=== PATIENT | male | born 1955 | race Caucasian/White ===

== ENCOUNTER 2024-09-16 23:51 | Inpatient (IN) | payer OTHER, SELFPAY ==
[2024-09-16] VITALS (10 sets, daily range): BP systolic 93–171; BP diastolic 65–92
[2024-09-16 18:49] LABS: INR 2.01; PT 22.9 Sec (11.4-14.6)
[2024-09-16 19:00] LABS: Hematocrit 25.1 % (39.0-52.0); Hemoglobin 6.5 g/dL (13.0-18.0); Mean Corp Hgb Conc. 25.9 g/dL (33.0-37.0); Mean Corpuscular Volume 70.1 fL (80.0-94.0); Platelet Count 309 10^3/uL (130-400); Red Cell Dist. Width 23.0 % (11.5-14.5)
[2024-09-16 19:01] LABS: ALT (SGPT) 13 U/L (0-50); AST (SGOT) 20 U/L (17-59); Albumin 4.4 g/dl (3.5-5.0); Alkaline Phosphatase 67 U/L (38-126); Blood Urea Nitrogen 17 mg/dl (9-20); Calcium 9.2 mg/dl (8.4-10.2); Carbon Dioxide 22 mmol/L (22-30); Chloride 108 mmol/L (98-107); Glucose 100 mg/dl (70-99); Potassium 4.7 mmol/L (3.5-5.1); Sodium 137 mmol/L (135-145); Total Protein 8.4 g/dl (6.3-8.2); eGFR > 60.00
[2024-09-16 19:19] LABS: Anisocytosis 2+; Hypochromasia 2+; Macrocytosis 2+; Normal RBC Morphology No; Nucleated Red Blood Cells % 0 % (-); Polychromasia Occasional
[2024-09-16 19:20] LABS: Ovalocytes Occasional; Stomatocytes Occasional; Target Cells Occasional; Tear Drop Red Blood Cells Occasional
--- NOTE | 2024-09-16 19:59 | ED.GENMED ---
History of Present Illness
General
Chief Complaint: Swelling
Source: patient
Exam Limitations: none
Time Seen by Provider: 09/16/24 19:36
History of Present Illness
History of Present Illness:
69yoM with a history of prior stroke with R sided hemiparesis, atrial fibrillation on Coumadin, CHF, prior DVT requiring surgery with IVC filter in place, Parkinson's disease, hypertension, hyperlipidemia, and cerebral palsy presenting for
evaluation of right thigh pain. Patient has been having pain in the back of his right thigh for the past several weeks. He is worried that he may a blood clot. He also thinks it may be a bug bite. He has also been experiencing exertional dyspnea
for a few months as well as fatigue. He states he can fall asleep 'at the drop of a hat.' He reports chest pain intermittently and lightheadedness if he bends over. No syncopal episodes. Triage lab work shows severe anemia. He denies any
hematochezia or melena.
Past History
Past History
ED Past Medical History: Arrthythmia (Atrial fib), CHF, CVA (paranasal stroke, right parietal ischemic stroke 2014, weakness right and left side), HTN, Hypercholesterolemia, Seizures and Other (parkinsons, Ulcerative Colitis, H-pylory, Hiatel
hernia, Abd hernias, DVT, GI bleeding,Headaches)
ED Past Surgical History: Other (IVC filter, Foot surgery)
Patient has exhibited threatening behavior?: No
PSI?: No
Social History
Tobacco: Former smoker
Alcohol: None
Drug: None
Personal: Single
Living: with family
Family History
Family History: Other (reviewed and noncontributory)
Phy Exam
Physical Exam
Physical Exam:
Chronically ill-appearing, no acute distress
General Physical Exam
General Presentation: no apparent distress
General Skin: warm, dry and pale
General Habitus: normal
General Mental: alert
ENT Exam
ENT Exam: normocephalic
Cardiovascular Exam
Cardiovascular Exam: regular rate/rhythm
Pulmonary Exam
Pulmonary Exam: lungs clear, no respiratory distress, no rales, no crackles and no rhonchi
Gastrointestinal Exam
Rectal Exam: other (Stool brown and Hemoccult testing negative)
Neurological Exam
Neurological Exam: alert
Anusha Coma Scale
Eye Opening: Spontaneous
Verbal Response: Oriented
Motor Response: Obeys Commands
GCS Total Score: 15
Musculoskeletal Exam
Musculoskeletal Exam: other (R posterior upper leg with erythema, warmth, and swelling. No open wounds.)
Psychiatric Exam
Psychiatric Exam: normal mood/affect
Scores
Heart Failure Risk
Heart Failure Risk Score: Not Applicable
Course
Orders/Labs/Results
Orders:
Orders
09/16/24 18:13
US Periph Venous LOWER Ext Jacques Urgent
Comment:
Reason For Exam: B/L LE swelling, R>L
09/16/24 18:33
Complete Blood Count/With Diff Urgent
Comprehensive Metabolic Panel Urgent
Iron Urgent
Comment: ADD ON
PT/INR [Prothrombin Time] Urgent
09/16/24 19:56
Blood Bank Products [* Blood Bank Products] Urgent
Blood Bank Products: *Packed RBC Leuko(PRBC's)
Quantity: 1
Transfuse Today: Yes
Reason: Anemia
Electrocardiogram (*1) Urgent
Reason for Study: Shortness of Breath
Cardiac Monitoring- Treatment ONCE
EKG- Treatment ONCE
CR Chest - 2 Views Urgent
Comment:
Reason For Exam: SOB
09/16/24 20:03
Add On- LAB Urgent
Tests Added?: iron panel
09/16/24 21:01
Type+Screen Urgent
09/16/24 21:02
NT-proBNP Urgent
Troponin I Urgent
09/16/24 23:00
Admit/Transfer Patient As Directed
Co-Sign Provider:
Level of Care: Inpatient admission
Assign to:: Telemetry
Physician / Group: Angel Luis Graves
Diagnosis: symptomatic anemia
Reason for Telemetry: Arrhythmia
Date to Stop Telemetry: 09/19/24
Time to Stop Telemetry: 11:00
Reason for Hospitalization: symptomatic anemia
Expected length of stay greater than two midnights?: Yes
ELOS- Estimated Length of Stay in days: 3
I certify the patient meets the requirements for IP care: Yes
PRN Pain Medication Management As Directed
May give lesser potent ordered pain med per pt: Yes
preference::
Protocol:: Medication orders for pain may be administered in a
manner that supports deferring to patient preference
when the pt is:
- Requesting an ordered lesser potent pain medication.
Least to most potent pain medications are defined
as: acetaminophen < NSAID < tramadol < opioids
(morphine, oxycodone, hydromorphone).
- Requesting a lesser dose of the same medication IF
ORDERED.
- Requesting a less intrusive route of administration
if both routes are prescribed by the provider (PO <
IV).
09/16/24 23:01
Code Status As Directed
Resuscitation Status: Full Code
09/16/24 23:14
Furosemide [Lasix] 40 mg IV NOW STA
09/16/24 23:35
CeFAZolin 1 GRAM [Ancef] 1 gram in 5 ml IV NOW
09/17/24 01:46
CeFAZolin 1 GRAM [Ancef] 1 gram in 5 ml IV Q8H
09/17/24 01:46
Consult Notification Routine
Specialty to Notify: Gastroenterology
GASTROINTESTINAL CONSULT Routine
Consulting Provider: Сергей Gordillo
Was physician already notified: No
Reason for consult: symptomatic anemia
Activity As Directed
Activity Level: As Tolerated
Intake/ Output As Directed
Frequency: Per unit guidelines
Patient Education As Directed
Type: CHF folder
Comment: give on admission. Document in Interdisciplinary Education record
Pneumatic Compression Sleeves As Directed
Type: Knee high
Sleep Apnea Assessment by RN As Directed
Comment:
Physician Instructions:
Vital Signs As Directed
Frequency: Per unit guidelines
Weight As Directed
Frequency: Daily
Type of Scale: Standing Scale
Comment: Daily morning weight. If unable to stand, use balanced bed scale.
Weight As Directed
Frequency: Once
Type of Scale: Standing Scale
Comment: Upon Admission. If unable to stand, use balanced bed scale.
Pulse Ox/cont/shift [RESP] Routine
Quantity: 1
Special Instructions: Daily pulse oximetry at rest. If greater than 92% at rest also obtain pulse oximetry
while ambulating as tolerated.
DX Deep Vein Thrombosis Video Routine
09/17/24 06:00
Echo 2D MMode Color/Doppler IN AM
Reason for Study: heart failure
NPO
Allow oral meds: Yes
Allow clear liquids: No
Basic Metabolic Panel IN AM
Complete Blood Count/No Diff IN AM
Ferritin IN AM
Folate IN AM
Total Iron Binding IN AM
Vitamin B12 IN AM
09/17/24 08:00
Furosemide [Lasix] 40 mg IV DAILY
09/17/24 Dinner
Clear Liquid
At Your Request: Full Participation
09/19/24 11:00
DC Protocol for Telemetry ONCE
Abnormal Lab Results
09/16/24 09/16/24
18:33 21:01
RBC 3.58 L 10^6/uL
(4.70-6.10)
Hgb 6.5 L* g/dL
(13.0-18.0)
Hct 25.1 L %
(39.0-52.0)
MCV 70.1 L fL
(80.0-94.0)
MCH 18.2 L pg
(27.0-31.0)
MCHC 25.9 L g/dL
(33.0-37.0)
RDW 23.0 H %
(11.5-14.5)
Lymphocytes % 19.3 L %
(20.5-51.1)
Eosinophils % 7.0 H %
(0-6)
PT 22.9 H Sec
(11.4-14.6)
Chloride 108 H mmol/L
(98-107)
Glucose 100 H mg/dl
(70-99)
Iron 28 L ug/dl
(49-181)
Total Protein 8.4 H g/dl
(6.3-8.2)
Crossmatch IS Only See Detail
09/16/24 18:33
09/16/24 18:33
Vital Signs
Initial and Last Documented VS:
Initial Vital Signs
Temp Pulse Resp BP Pulse Ox
98.4 F 100 18 171/92 100
09/16/24 18:13 09/16/24 18:13 09/16/24 18:13 09/16/24 18:13 09/16/24 18:13
Last Documented Vital Signs
Temp Pulse Resp BP Pulse Ox
97.9 F 92 20 146/83 96
09/17/24 01:55 09/17/24 01:55 09/17/24 01:55 09/17/24 01:55 09/17/24 01:55
MDM/Problems Addressed
Differential Diagnosis Includes:
69yoM here with pain in back of R thigh x several weeks. Worried about DVT as he has a history of this although is anticoagulated with Coumadin. Also c/o exertional dyspnea and fatigue. He is hypertensive with otherwise stable vital signs. He
appears pale on exam. Back of right leg is erythematous and warm. Differential diagnosis includes but is not limited to: DVT, cellulitis, lymphedema, chronic venous stasis, CHF
Initial ED plan: Labs obtained in triage. He is severely anemic with a hemoglobin of 6.5. This is down from 11.5 in 2023. Stool is brown on rectal exam and Hemoccult testing is negative. Will add on iron panel, check cardiac labs, EKG, venous
duplex, and chest x-ray.
*Pulse Oximetry
SaO2: 100
Oxygen Mode of Delivery: Room air
Patient hypoxic: no (100%)
*EKG
Interpreted by ED Provider?: Yes
EKG Intrepretation Date: 09/16/24
Heart Rate: 91
Rate: normal
Rhythm: sinus
Lisman: normal axis
Interval: normal interval
QRS Pattern: normal QRS
Ischemia: no ischemia
*Critical Care Note
Total Time (30-74mins, 75-104mins- exclusive of procedures): Not Applicable
Update Note
Update Note:
Venous duplex negative for DVT bilaterally. Troponin and BNP within normal limits. Consent obtained and 1 unit PRBCs ordered for transfusion. He was admitted for further evaluation and management.
ED Attending Note
-
Portions of this chart may have been created with voice recognition software.� Occasional wrong word or��sound alike� substitutions may have occurred due to the inherent limitations of voice recognition software.
Discharge Plan
Departure
Patient Disposition: Admit
Date of Disposition: 09/16/24
Time of Disposition: 21:52
Presentation/result/management discussed w/ accepting MD/DO: Hospitalist
Discharge Problem:
Symptomatic anemia
Interventions
Interventions:
*Risk Screen - Suicide Last Done: 09/16/24 18:13
*General Assessment Last Done: 09/16/24 18:13
*Neglect/Abuse Screening Last Done: 09/16/24 18:13
*ED COVID-19 Vaccine History Last Done: 09/16/24 18:13
*Nursing Disposition Last Done: 09/17/24 01:39
ED- Cardiac Assessment Last Done: 09/16/24 23:01
ED- Pulmonary Assessment Last Done: 09/16/24 23:01
ED-Skin Assessment Last Done: 09/16/24 21:57
Discharge Date and Time
Discharge Date/Time: 09/17/24 01:39
[2024-09-16 20:43] LABS: Iron 28 ug/dl (49-181)
[2024-09-16 21:45] LABS: Troponin I < 0.012 ng/ml
--- NOTE | 2024-09-16 21:56 | HPS.HSE ---
Addendum entered and electronically signed by Angel Luis Graves DO 09/16/24 23:54:
Patient seen and examined independently. Agree with findings and plan as set forth by HONG Vera.
Patient is a 69y M with PMH significant for A-Fib, CVAs, DVT / PE who presents to ED complaining of dyspnea with activity and intermittent R thigh pain. Patient states that his symptoms have been present for months - but have been worse
recently. He is maintained on Coumadin and notes that his INR has been running high recently (5.9 a few weeks ago). He denies any significant injury or trauma. He denies any black or bloody stools. He denies any other obvious bleeding / blood
loss.
Patient states that he has not had labs - other than his weekly INR - since February 2023.
Ass:
Symptomatic Microcytic Anemia
Acute on Chronic HFpEF
Asymmetric RLE Edema / Possible Cellulitis
ASCVD (CAD, CVA, PAD)
History of DVT / PE
Paroxysmal Atrial Fibrillation
Benign Hypertension
Parkinson's Disease
Plan:
Admit for further evaluation and treatment.
Transfusion ordered in the ED for Hgb = 6.5 g/dL.
Heme positive in the ED today - though GI losses remain most likely in this patient on chronic anticoagulation.
Follow H&H and transfuse additional blood products as needed.
GI evaluation for possible endoscopic examinations.
Monitor for any evident source of bleeding.
US done in the ED without evidence of DVT. Patient has been therapeutic on Coumadin by his report.
Holding Coumadin acutely given anemia / bleeding.
IV Ancef for now for suspected RLE cellulitis and follow for clinical changes.
Consider further imaging / Vascular evaluation if no improvement.
Update Echo.
IV Lasix daily and follow for improvement in diffuse edema / R heart failure.
Patient is not aware of any of his current meds / doses - other than Coumadin.
Needs formal med rec in AM and then resume appropriate medications.
Original Note:
Family Physician
-
Family Physician:
Chief Complaint
-
exertional dyspnea and right thigh edema and pain
History of Present Illness
Patient is a 69-year-old male with past medical history significant for Parkinson's Disease, ASCVD with documented CAD and prior CVA, atrial fibrillation, HFpEF and hypertension who presented to [facility] ED for evaluation of exertional dyspnea and right
thigh edema and pain. Patient reports both have been present for some time now and he decided to get evaluated because symptoms just were not improving. He also reports scrotal edema. He does admit to being noncompliant with compression stockings.
He states he takes Coumadin and has weekly INR drawn on Fridays. Today INR drawn and clinic called and instructed him to take 1.5 tablets of Coumadin which he took prior to arrival. He does report some heaving with emesis of mucus appearing
substance. Patient denies any recent travel, any known bite to right thigh, fever, cough, chest pain, nausea, constipation, diarrhea or urinary symptoms.
Medical History
Past Medical History
Past Medical History: Reports Other
Additional Past Medical History:
Parkinson's Disease
ASCVD with documented CAD and prior CVA
Ulcerative Colitis
GERD / Hiatal Hernia
History of DVT
Cervical Spinal Stenosis
Hypertension
Atrial Fibrillation
HFpEF
Morbid Obesity
Past Surgical History: Reports Other
Additional Past Surgical History:
IVC Filter
Foot Surgery
Septoplasty
Social History
Tobacco: Former Smoker (Quit smoking 40 years ago.)
Alcohol: Occasional (rarely)
Drug: None
Living: With Family
Employment: Disabled
Family History
Family History: Not pertinent
Allergies / Home Medications
Allergies reflects when Allergies were last updated in [facility].
Home Medications with original date entered in [facility]
Allergy/Medication List:
Medications on admission are unable to be verified or confirmed at this time.
If medication reconciliation has not been performed, why?: Medication List N/A
Review of Systems
-
History Source: Patient
Constitutional: Reports Chills; Denies Fever
EENT: Reports No Symptoms
Respiratory: Reports Trouble Breathing (exertional dyspnea ); Denies Cough
Cardiac: Denies Chest Pain or Palpitations
Abdomen/GI: Reports Vomiting; Denies Abdominal Pain, Nausea, Diarrhea or Constipated
: Reports No Symptoms
Musculoskeletal: Reports Edema (bilateral lower extremities and scrotal ) and Other (Right thigh pain)
Skin: Denies Rash
Neurological: Reports Weakness; Denies Numbness
Endocrine: Reports No Symptoms
Hematologic/Lymphatic: Reports No Symptoms
Psych: Reports No Symptoms
Physical Exam
Vital Signs
Vital Signs
Temp Pulse Resp BP Pulse Ox
98.4 F 100 18 169/87 100
09/16/24 18:13 09/16/24 19:52 09/16/24 19:52 09/16/24 19:52 09/16/24 20:02
Physical Exam
General: Well Developed, Well Nourished, No Apparent Distress, Conversant and Obese
HEENT: NormoCephalic, Moist mucous membranes and Atraumatic
Respiratory: Clear and Non Labored Respirations
Cardiac: S1/S2, Regular Rhythm and Peripheral Edema; No Murmur, Rub or Gallop
GI: Soft, Non Tender, Non Distended and Normal Bowel Sounds; No Organomegaly
Rectal: Deferred by Provider
Genito-urinary: Deferred by me
Musculoskeletal: No Clubbing, No Cyanosis, Edema, Left Lower Extremity and Edema, Right Lower Extremity
Skin: Warm and IV/Catheter Site
Neuro: Awake, AO x 3 and Nonfocal/grossly intact
Psych: Calm
Laboratory Results
-
09/16/24 18:33
09/16/24 18:33
Laboratory Results
PT 22.9 Sec (11.4-14.6) H 09/16/24 18:33
INR 2.01 09/16/24 18:33
Total Bilirubin 1.3 mg/dl (0.2-1.3) 09/16/24 18:33
AST 20 U/L (17-59) 09/16/24 18:33
ALT 13 U/L (0-50) 09/16/24 18:33
Alkaline Phosphatase 67 U/L (38-126) 09/16/24 18:33
Troponin I < 0.012 ng/ml 09/16/24 21:02
Data Reviewed
-
Ultrasound: Report Reviewed by me (BLLE: No findings to confirm deep venous thrombosis)
Lab Data: Labs Reviewed by me (hgb 6.5, hct 25.1)
Impression/Plan
-
IMPRESSION/PLAN:
#symptomatic anemia
hgb 6.5, hct 25.1
BLLE US: No findings to confirm deep venous thrombosis
- Admit to telemetry
- Consult GI
- Iron studies
- blood consent obtained by ED, scanned into chart
- 1 unit PRBCs
- trend h/h, transfuse for hgb <7.0
#HFpEF
- I & Os
- daily weights
- ECHO in AM
- IV Lasix 40mg daily
#right lower extremity edema 2/2 CHF vs. cellulitis
- start Ancef 1gm q8
#atrial fibrillation
- hold Coumadin
#Hx DVT
- hold Coumadin
#Parkinson's Disease
#hypertension
#ASCVD with documented CAD and prior CVA
*med rec unable o be completed, patient only able to verbalize Coumadin 3mg daily and 4.5mg on Fridays*
Code status: full code
DVT prophylaxis: SCDs
[2024-09-17] VITALS (10 sets, daily range): BP systolic 109–146; BP diastolic 54–84; BMI 42.5
[2024-09-17] MEDS: LASIX 40 MG IV ×2 (00:17→08:28)
[2024-09-17] MEDS: ANCEF 5 IV ×4 (00:18→23:20)
--- NOTE | 2024-09-17 01:45 | PTCARENOTE ---
Pt arrived to unit from ED via stretcher. Ambulated from stretcher to bed with standby assist from staff. A&Ox3. Oriented to unit. Plan of care ongoing.
[2024-09-17] MEDS: FLUSH (NSS) 2 FLUSH IV (08:27)
[2024-09-17 09:45] LABS: Hematocrit 25.8 % (39.0-52.0); Hemoglobin 7.1 g/dL (13.0-18.0); Mean Corp Hgb Conc. 27.5 g/dL (33.0-37.0); Mean Corpuscular Volume 70.9 fL (80.0-94.0); Platelet Count 292 10^3/uL (130-400); Red Cell Dist. Width 23.4 % (11.5-14.5)
[2024-09-17 10:16] LABS: Blood Urea Nitrogen 14 mg/dl (9-20); Calcium 9.0 mg/dl (8.4-10.2); Carbon Dioxide 24 mmol/L (22-30); Chloride 106 mmol/L (98-107); Estimated Creatinine Clearance 80 ml/min; Glucose 92 mg/dl (70-99); Potassium 4.5 mmol/L (3.5-5.1); Sodium 137 mmol/L (135-145); eGFR > 60.00
[2024-09-17 10:25] LABS: Total Iron Binding Capacity 434 ug/dl (261-462)
[2024-09-17 10:47] LABS: Ferritin 10.2 ng/ml (17.9-464.0)
[2024-09-17 11:12] LABS: INR 2.22; PT 24.7 Sec (11.4-14.6)
[2024-09-17 11:18] LABS: Folate 9.7 ng/ml (2.76-20); Vitamin B12 302 pg/ml (239-931)
[2024-09-17] MEDS: BETAPACE 120 MG PO (11:21)
--- NOTE | 2024-09-17 11:50 | PTCARENOTE ---
1 Unit PRBC started as ordered. Pt resting in bed comfortably. No S/S of reaction. VSS
--- NOTE | 2024-09-17 12:05 | W.PN.HOSP.TC ---
Today's Communication/Plan
-
Compression therapy for legs
Continue IV antibiotics
IV Lasix
Transfuse
GI consult
Hold warfarin
Ask family to bring in omeprazole
PT consult
Assessment / Plan
Assessment / Plan
Gen-AAOx3, NAD
HEENT-NC, AT, anicteric, clear oral mm
Neck-supple
CV-reg, no M, +S1/S2
Lungs-clear B/L
Abd-soft, NT, ND
Ext-right greater than left lower extremity edema, bilateral lower extremity hyperpigmentation below knees
Musculoskeletal-no cyanosis, clubbing
Skin-warm and dry, right thigh circumferential erythema, mild tenderness, mild warmth
Neuro-grossly non-focal
Psych-calm, cooperative
Acute right lower extremity cellulitis -primarily involving the right thigh. Continue IV cefazolin. Suspect trigger is venous stasis dermatitis, poor circulation as a result of prior DVTs.
Doppler ultrasound of bilateral lower extremities negative for DVT on admission.
Symptomatic acute on chronic anemia -no evidence of bleeding. Heme-negative stool on admission. Patient denies melena or hematochezia.
Microcytic anemia. Low iron and low ferritin levels noted but TIBC in the normal range.
Suspect some degree of chronic iron deficiency anemia, possibly due to underlying ulcerative colitis, and will need GI workup. GI service has been consulted.
Last colonoscopy was March 2021 showing severe ulcerative colitis from rectum to sigmoid, scope was not advanced past the sigmoid colon given severe inflammation. Nonbleeding internal hemorrhoids and one 5 mm polyp at 20 cm proximal to the anus
noted and resected.
Last EGD was March 2021 showing LA grade B esophagitis without bleeding. Erythematous mucosa in the antrum. 6 cm hiatal hernia. Erythematous duodenopathy.
Hemoglobin 6.5 on admission, 7.1 today after 1 unit PRBC. Will transfuse second unit today. Baseline hemoglobin unknown.
Vitamin B12 level 302, will start oral repletion. Folic acid normal.
Warfarin on hold for symptomatic acute anemia.
Acute on chronic heart failure with preserved EF -continue IV Lasix. He presented with symptoms of exertional dyspnea for several months, fatigue. Unfortunately he does not know his dry weight. Does not weigh himself regularly.
At home he uses furosemide 20 mg daily. 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
BNP on admission was 200. Of note, BNP can be suppressed in the setting of acute heart failure and morbid obesity.
Last echocardiogram in our system was from May 2022, LVEF 55 to 60%, mild TR.
Check echocardiogram here.
Paroxysmal atrial fibrillation -hold warfarin due to acute anemia. Monitor INR, currently 2.2. He does have a home INR monitor and has been therapeutic at home.
History of ulcerative colitis -patient states it is in remission. Not currently on treatment. 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
History of esophagitis -on omeprazole twice daily at home. Pantoprazole is listed as a allergy, reportedly anaphylaxis. Patient will need to bring omeprazole in from home, discussed with nursing.
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 Hold warfarin as above.
Chronic lower extremity venous stasis dermatitis -suspect due to history of DVTs. He does use compression stockings at home but will use Gerry wraps for compression moving forward. Discussed with patient.
Essential hypertension -stable.
Hyperlipidemia -atorvastatin.
Parkinson's disease -Sinemet.
Hx cerebral palsy -with chronic right upper extremity numbness due to injury.
Hx seizures
Morbid obesity due to excess calories -outpatient sleep apnea testing if not already done.
Full code
Anticipated Discharge: > 48 hours
Subjective/Interval History
-
Date of Service: September 17, 2024
Patient seen and examined, feeling better overall. No complaints.
Objective Data
-
Labs:
Laboratory Results
09/17/24 09/17/24
08:51 10:39
WBC 5.3
Hgb 7.1 L
Hct 25.8 L
Plt Count 292
PT 24.7 H
INR 2.22
Sodium 137
Potassium 4.5
Chloride 106
Carbon Dioxide 24
BUN 14
Creatinine 1.0
Glucose 92
Calcium 9.0
Vital Signs:
Vital Signs
Temp Pulse Resp BP Pulse Ox
98.5 F 81 20 138/78 99
09/17/24 12:02 09/17/24 12:02 09/17/24 12:02 09/17/24 12:02 09/17/24 11:21
I&O
09/16/24 09/17/24 09/18/24
06:59 06:59 06:59
Intake Total 250 / 250 0 / 0
Output Total 2325 / 2325
Balance -2074 / -2074 0 / 0
Review of Systems
-
History Source: Patient
All other systems: Reviewed and negative
[2024-09-17] MEDS: VITAMIN B-12 1000 MCG PO (13:06)
--- NOTE | 2024-09-17 13:08 | CM ---
Initial assessment completed with pt at [facility].
Pt is a 69yr old male admitted with Symptomatic Anemia and hx of Parkinsons
At baseline, pt lives with his sister, niece, and 3 great niece. The home is 2 floors with 0ste. Pt has a main level living area with a powder room and does sponge bathing due to his inability to climb the stairs to the second floor.
Prior, pt is indep with his ADLs. Pt does have a RW and cane, but does not use them for mobility within the house due to space; pt furniture walks.
Pt does limited driving and often uses [employer] or his niece to aide with appointments.
Pt does not currently have a PCP. Residency Program resource was given.
Pt uses [employer] [place]
PLAN; Likely dc to home with no needs. Pt shares his poor experiences with [facility] and at this time does not want a referral at nd
--- NOTE | 2024-09-17 13:54 | CON.GI ---
Consultation
-
Date/Time Consultation Requested: 09/17/2024
Date/Time Consultation Performed: 09/17/2024
Requesting Provider: Hospitalist
Performing Provider: Don BOWMAN
Reason for Consultation: Anemia
Medical History
Chief Complaint / HPI
Chief Complaint: Right thigh pain/swelling exertional dyspnea
History of Present Illness:
69-year-old male with history history admitted to ED with exertional dyspnea and right leg swelling/pain. GI was consulted since admission labs showing hemoglobin 6.5. Patient with history of severe ulcerative colitis diagnosed back in 2021.
Prior GI records reviewed. Patient was initially started on Remicade by Dr. Willoughby but then was stopped because of heart failure. Patient was referred to follow-up at [facility]. Patient claims he still GI at [facility] once back then and has not followed
up with them for the last few years. He claims his ulcerative colitis symptoms in remission and he is not taking any medication. Bowel movements are regular. Formed stool. Occasional loose stools. Denies any blood or mucus with stool.
Past Medical History
Past Medical History: Other (Parkinson's Disease ASCVD with documented CAD and prior CVA Ulcerative Colitis GERD / Hiatal Hernia History of DVT Cervical Spinal Stenosis Hypertension Atrial Fibrillation HFpEF Morbid Obesity)
Past Surgical History: Other (IVC Filter Foot Surgery Septoplasty)
Social History
Tobacco: Former Smoker
Alcohol: Occasional
Drug: None
Allergies / Home Medications
Allergy/AdvReac Type Severity Reaction Status Date / Time
latex Allergy Itching Verified 09/16/24 18:17
pantoprazole (From Protonix) Allergy Anaphylaxis-lip Verified 09/16/24 18:17
swelling
from IV
pantoprazole
peanut Allergy wheezing, Verified 09/16/24 18:17
swelling
pollen extracts Allergy nasal Verified 09/16/24 18:17
congestion
prednisone Allergy numbness/ti Verified 09/16/24 23:39
ngling
Tetanus Vaccines and Toxoid Allergy diarrhea Verified 09/16/24 23:39
�Medication �Instructions �Recorded
gabapentin 100 mg capsule 200 mg PO TID Neurological 03/15/21
Condition
atorvastatin 80 mg tablet (Lipitor) 80 mg PO HS High cholesterol 08/15/21
carbidopa 25 mg-levodopa 100 mg 1.5 tab PO TID Neurological 08/15/21
tablet Condition
diphenhydramine HCl 25 mg capsule 25 mg PO DAILY PRN allergies 08/15/21
(Benadryl)
omeprazole 40 mg capsule,delayed 40 mg PO BID Gastrointestinal issue 02/19/22
release
sotalol 120 mg tablet 120 mg PO Q12H Arrhythmia 02/19/22
ammonium lactate 12 % lotion 1 applic topical BID Skin issues 02/24/22
#225 grams
acetaminophen 325 mg tablet 650 mg (2 x 325 mg) PO Q4HPRN PRN 03/23/22
mild pain #1 tab
torsemide 20 mg tablet 10 mg PO DAILY Fluid 05/22/22
retention/Swelling
enoxaparin 120 mg/0.8 mL 110 mg (0.7333 mL) SC Q12 #8 mL 05/30/22
subcutaneous syringe
warfarin 3 mg tablet 3 mg PO SUMOTUWETHSA 09/16/24
warfarin 3 mg tablet 4.5 mg PO FR 09/16/24
Review of Systems
-
All other systems: A 12 pt ROS was Negative except as stated above in HPI
Vital Signs
Temp Pulse Resp BP Pulse Ox
98.5 F 81 20 138/78 99
09/17/24 12:02 09/17/24 12:02 09/17/24 12:02 09/17/24 12:02 09/17/24 11:21
Physical Exam
Exam
General: Well Developed, Well Nourished and Comfortable
Respiratory: Clear
Cardiac: S1/S2
GI: Soft, Non Tender, Non Distended and Normal Bowel Sounds
Results
WBC 5.3 10^3/uL (4.8-10.8) 09/17/24 08:51
Hgb 7.1 g/dL (13.0-18.0) L 09/17/24 08:51
Hct 25.8 % (39.0-52.0) L 09/17/24 08:51
MCV 70.9 fL (80.0-94.0) L 09/17/24 08:51
Plt Count 292 10^3/uL (130-400) 09/17/24 08:51
Absolute Neuts (auto) 5.0 10^3/uL (1.4-6.5) 09/16/24 18:33
PT 24.7 Sec (11.4-14.6) H 09/17/24 10:39
INR 2.22 09/17/24 10:39
Sodium 137 mmol/L (135-145) 09/17/24 08:51
Potassium 4.5 mmol/L (3.5-5.1) 09/17/24 08:51
Chloride 106 mmol/L (98-107) 09/17/24 08:51
Carbon Dioxide 24 mmol/L (22-30) 09/17/24 08:51
BUN 14 mg/dl (9-20) 09/17/24 08:51
Creatinine 1.0 mg/dL (0.7-1.3) 09/17/24 08:51
Calcium 9.0 mg/dl (8.4-10.2) 09/17/24 08:51
Total Bilirubin 1.3 mg/dl (0.2-1.3) 09/16/24 18:33
AST 20 U/L (17-59) 09/16/24 18:33
ALT 13 U/L (0-50) 09/16/24 18:33
Alkaline Phosphatase 67 U/L (38-126) 09/16/24 18:33
Diagnostic Image Results:
Prior GI Procedures:
EGD: 03/17/2021
Impression: - LA Grade B esophagitis with no bleeding. Biopsied.
- Erythematous mucosa in the antrum. Biopsied.
- 6 cm hiatal hernia.
- Erythematous duodenopathy. Biopsied.
Colonoscopy: 03/17/2021
Impression: - Severe (Amor Score 3) ulcerative colitis from rectum
to sigmoid at 40cm. Did not proceed past sigmoid given
severity of inflammation. Biopsied.
- Non-bleeding internal hemorrhoids.
- One 5 mm polyp at 20 cm proximal to the anus,
removed with a jumbo cold forceps. Resected and
retrieved.
Assessment / Plan
-
69-year-old male with past medical history of A-fib on Coumadin, CVA, DVT, ulcerative colitis . Parkinson disease, seizure, cerebral palsy, hypertension presenting to the ED with right leg swelling/shortness of breath. He was noted to have a
hemoglobin of 6.5. Denies any overt GI bleeding. Prior history of severe ulcerative colitis diagnosed back in 2021 -he was started on Remicade by Dr. Willoughby which was discontinued with adverse reaction ? vs history of heart failure and was
referred to GI at [facility] ( saw once ). Patient claims he has not been following with any GI for the last few years. He claims his ulcerative colitis symptoms in remission and is not taking any medication.
--Acute on chronic anemia. Denies any overt GI bleeding. ED stool brown/occult negative
-- Severe ulcerative colitis-involving rectum/sigmoid colon(up to 40 cm). Noted during colonoscopy in 2021. Colonoscopy was not further advanced at that time because of severe colitis. Details in HPI. Currently not following with any GI and not
on any treatment
-- GERD/esophagitis
-- H.pylori noted in gastric bx 2021. Rx at that time as per patient
--LE Cellulitis
--A-fib on Coumadin. Last INR 2.22. Currently Coumadin on hold
--DVT
plan
Continue monitor H&H. Transfuse to keep hemoglobin above 7
Patient currently does not have any overt GI bleeding. Stool occult blood testing was negative as well. Likely chronic blood loss with history of UC-not on any treatment at present
Patient will benefit with repeat colonoscopy (previous colonoscopy -extended up to sigmoid colon) . Timing of colonoscopy to be decided when INR <1.5 . Continue to hold Coumadin
Continue PPI (documented anaphylaxis with IV pantoprazole. Patient has been using omeprazole at home)
Total Time Spent with Patient (in minutes): 55
-
-
Thank you for consultation and allowing me to participate in the patient's care. Please call the analysis consultant GI physician during the after hours with any questions or concerns.
--- NOTE | 2024-09-17 15:03 | PTCARENOTE ---
Blood transfusion completed. Pt c/o headache and 2/10 pain within L middle chest. Pt stated, 'It feels like a pull' and 'I have this feeling when I go into a fib'. MD made aware, new orders provided, troponin lab & ECG obtained.
[2024-09-17 15:47] LABS: Troponin I < 0.012 ng/ml
[2024-09-17] MEDS: NEURONTIN 200 MG PO ×2 (16:36→21:10)
[2024-09-17] MEDS: SINEMET 25-100 1.5 TABLET PO ×2 (16:36→21:10)
--- NOTE | 2024-09-17 17:49 | PTCARENOTE ---
Pt c/o nausea and vomiting, made aware, new order provided, see MAR.
[2024-09-17] MEDS: ZOFRAN 4 MG IV (17:51)
[2024-09-17] MEDS: LIPITOR 80 MG PO (21:10)
[2024-09-17] MEDS: DESENEX/MITRAZOL/ZEASORB 1 APPLIC TOPICAL (21:11)
[2024-09-18] VITALS (8 sets, daily range): BP systolic 103–146; BP diastolic 54–71; PULSE 67; O2SAT 96; BMI 41.4
[2024-09-18 05:55] LABS: INR 2.25; PT 24.9 Sec (11.4-14.6)
[2024-09-18 06:01] LABS: Hematocrit 27.3 % (39.0-52.0); Hemoglobin 7.6 g/dL (13.0-18.0); Mean Corp Hgb Conc. 27.8 g/dL (33.0-37.0); Mean Corpuscular Volume 73.2 fL (80.0-94.0); Nucleated Red Blood Cells % 0 % (-); Platelet Count 294 10^3/uL (130-400); Red Cell Dist. Width 23.9 % (11.5-14.5)
[2024-09-18 06:06] LABS: Blood Urea Nitrogen 19 mg/dl (9-20); Calcium 8.6 mg/dl (8.4-10.2); Carbon Dioxide 25 mmol/L (22-30); Chloride 105 mmol/L (98-107); Estimated Creatinine Clearance 79 ml/min; Glucose 85 mg/dl (70-99); Potassium 4.6 mmol/L (3.5-5.1); Sodium 135 mmol/L (135-145); eGFR > 60.00
[2024-09-18] MEDS: SINEMET 25-100 1.5 TABLET PO ×3 (08:27→21:23)
[2024-09-18] MEDS: COMPAZINE 5 MG IV (08:28)
[2024-09-18] MEDS: NEURONTIN 200 MG PO ×3 (08:28→21:22)
[2024-09-18] MEDS: ANCEF 5 IV ×2 (08:28→15:47)
[2024-09-18] MEDS: VITAMIN B-12 1000 MCG PO (08:29)
[2024-09-18] MEDS: BETAPACE 120 MG PO ×2 (08:29→19:38)
[2024-09-18] MEDS: DESENEX/MITRAZOL/ZEASORB 1 APPLIC TOPICAL ×2 (08:29→19:41)
[2024-09-18] MEDS: LASIX 40 MG IV (08:29)
--- NOTE | 2024-09-18 08:54 | W.PN.HOSP.TC ---
Addendum entered and electronically signed by Ion Banerjee DO 09/18/24 15:23:
I spoke with Dr. Barrientos.
Patient's IVC filter was previously removed.
Therefore, will start IV Heparin once INR below 2.0. Recheck INR tonight and in am as well.
Updated nursing to follow up on INR tonight and please inform overnight BLOCK MECHANIC regarding results.
Original Note:
Today's Communication/Plan
-
Continue diuretics
Continue antibiotics
Compression therapy for legs
Monitor hemoglobin
Family to bring in omeprazole
Minimize antiemetics
Assessment / Plan
Assessment / Plan
Gen-AAOx3, NAD
HEENT-NC, AT, anicteric, clear oral mm
Neck-supple
CV-reg, no M, +S1/S2
Lungs-clear B/L
Abd-soft, NT, ND
Ext-right greater than left lower extremity edema, bilateral lower extremity hyperpigmentation below knees
Musculoskeletal-no cyanosis, clubbing
Skin-warm and dry, right thigh circumferential erythema, mild tenderness, mild warmth
Neuro-grossly non-focal
Psych-calm, cooperative
Acute right lower extremity cellulitis -primarily involving the right thigh. Continue IV cefazolin. Suspect trigger is venous stasis dermatitis, poor circulation as a result of prior DVTs.
Doppler ultrasound of bilateral lower extremities negative for DVT on admission.
Erythema improved overnight.
Symptomatic acute on chronic anemia -no evidence of bleeding. Heme-negative stool on admission. Patient denies melena or hematochezia.
Microcytic anemia. Low iron and low ferritin levels noted but TIBC in the normal range.
Suspect some degree of chronic iron deficiency anemia, possibly due to underlying ulcerative colitis, and will need GI workup. GI service has been consulted.
Last colonoscopy was March 2021 showing severe ulcerative colitis from rectum to sigmoid, scope was not advanced past the sigmoid colon given severe inflammation. Nonbleeding internal hemorrhoids and one 5 mm polyp at 20 cm proximal to the anus
noted and resected.
Last EGD was March 2021 showing LA grade B esophagitis without bleeding. Erythematous mucosa in the antrum. 6 cm hiatal hernia. Erythematous duodenopathy.
Hemoglobin 6.5 on admission, 7.6 today after 2 unit PRBC. Baseline hemoglobin unknown.
Vitamin B12 level 302, continue oral repletion. Folic acid normal.
Despite holding warfarin since admission INR still 2.2 today. If plan for colonoscopy, then may need to give low-dose oral vitamin K today. Will discuss with GI.
Acute on chronic heart failure with preserved EF -continue IV Lasix. Clinically improving, weight down 3 kg. I's and O's negative.
He presented with symptoms of exertional dyspnea for several months, fatigue. Unfortunately he does not know his dry weight. Does not weigh himself regularly.
At home he uses furosemide 20 mg daily. 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
BNP on admission was 200. Of note, BNP can be suppressed in the setting of acute heart failure and morbid obesity.
Last echocardiogram in our system was from May 2022, LVEF 55 to 60%, mild TR.
Check echocardiogram here. Cardiology consulted.
Paroxysmal atrial fibrillation -hold warfarin due to acute anemia. Monitor INR, currently 2.2. He does have a home INR monitor and has been therapeutic at home.
History of ulcerative colitis -patient states it is in remission. Not currently on treatment. His box car loader is at the [facility].
History of esophagitis -on omeprazole twice daily at home. Pantoprazole is listed as a allergy, reportedly anaphylaxis. Patient states family will bring in omeprazole today. Because he missed doses of omeprazole in the hospital, he developed
nausea and vomiting yesterday, relieved with antiemetics.
Ideally would minimize use of antiemetics as they interact with both his meds and his underlying disease process including Parkinson's. Discussed with patient in detail, he is to bring omeprazole with him in the future to every hospital visit.
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 Hold warfarin as above.
Chronic lower extremity venous stasis dermatitis -suspect due to history of DVTs. He does use compression stockings at home but will use Gerry wraps for compression moving forward. Discussed with patient.
Essential hypertension -stable.
Hyperlipidemia -atorvastatin.
Parkinson's disease -Sinemet.
Hx cerebral palsy -with chronic right upper extremity numbness due to injury.
Hx seizures
Morbid obesity due to excess calories -outpatient sleep apnea testing if not already done.
Full code
Anticipated Discharge: > 48 hours
Subjective/Interval History
-
Date of Service: September 18, 2024
Patient seen and examined. Feeling better. Nausea and vomiting resolved. Tolerated diet this morning. Did have mild transient dysuria.
Objective Data
-
Labs:
Laboratory Results
09/18/24
04:03
WBC 6.8
Hgb 7.6 L
Hct 27.3 L
Plt Count 294
PT 24.9 H
INR 2.25
Sodium 135
Potassium 4.6
Chloride 105
Carbon Dioxide 25
BUN 19
Creatinine 1.0
Glucose 85
Calcium 8.6
Vital Signs:
Vital Signs
Temp Pulse Resp BP Pulse Ox
98.6 F 71 16 123/71 94
09/18/24 07:23 09/18/24 08:29 09/18/24 07:23 09/18/24 08:29 09/18/24 07:23
I&O
09/17/24 09/18/24 09/19/24
06:59 06:59 06:59
Intake Total 250 / 250 1330 / 1330
Output Total 2325 / 2325 3225 / 3225
Balance -2074 / -2074 -1894 / -1894
Review of Systems
-
History Source: Patient
All other systems: Reviewed and negative
[2024-09-18] MEDS: MEPHYTON 2.5 MG PO (09:46)
[2024-09-18 10:41] LABS: Urine Character Clear (Clear)
--- NOTE | 2024-09-18 10:55 | W.PN.GI.CBS2 ---
Today's Communication / Plan
-
Vitamin K today
Repeat INR in a.m.
Assessment / Plan
-
69-year-old male with past medical history of A-fib on Coumadin, CVA, DVT, ulcerative colitis . Parkinson disease, seizure, cerebral palsy, hypertension presenting to the ED with right leg swelling/shortness of breath. He was noted to have a
hemoglobin of 6.5. Denies any overt GI bleeding. Prior history of severe ulcerative colitis diagnosed back in 2021 -he was started on Remicade by Dr. Willoughby which was discontinued with adverse reaction ? vs history of heart failure and was
referred to GI at [place] ( saw once ). Patient claims he has not been following with any GI for the last few years. He claims his ulcerative colitis symptoms in remission and is not taking any medication.
--Acute on chronic anemia. Denies any overt GI bleeding. ED stool brown/occult negative
-- Severe ulcerative colitis-involving rectum/sigmoid colon(up to 40 cm). Noted during colonoscopy in 2021. Colonoscopy was not further advanced at that time because of severe colitis. Details in HPI. Currently not following with any GI and not
on any treatment
-- GERD/esophagitis
-- H.pylori noted in gastric bx 2021. Rx at that time as per patient
--LE Cellulitis
--A-fib on Coumadin. Last INR 2.22. Currently Coumadin on hold
--DVT
plan
Repeat Hb this a.m. 7.6 .Received 2 units PRBC during this admission
Continue monitor H&H. Transfuse to keep hemoglobin above 7
Patient currently does not have any overt GI bleeding. Stool occult blood testing was negative as well. Likely chronic blood loss with history of UC-not on any treatment at present
Patient will benefit with repeat colonoscopy (previous colonoscopy -extended up to sigmoid colon) . INR this a.m. 2.25. Timing of colonoscopy to be decided when INR <1.5 . Continue to hold Coumadin. Medical team to administer vitamin K today.
Will repeat INR in a.m.
Continue PPI (documented anaphylaxis with IV pantoprazole. Patient has been using omeprazole at home)
Total Time Spent with Patient (in minutes): 35
Subjective
Subjective
Date of Service: September 18, 2024
No GI complaints
Objective
Data Reviewed
Laboratory Data:
Laboratory Results
09/18/24 04:03
09/18/24 04:03
Laboratory Results
PT 24.9 Sec (11.4-14.6) H 09/18/24 04:03
INR 2.25 09/18/24 04:03
Total Bilirubin 1.3 mg/dl (0.2-1.3) 09/16/24 18:33
AST 20 U/L (17-59) 09/16/24 18:33
ALT 13 U/L (0-50) 09/16/24 18:33
Alkaline Phosphatase 67 U/L (38-126) 09/16/24 18:33
Vital Signs and I&O:
Vital Signs
Temp Pulse Resp BP Pulse Ox
98.6 F 71 16 123/71 94
09/18/24 07:23 09/18/24 08:29 09/18/24 07:23 09/18/24 08:29 09/18/24 07:23
I&O
09/17/24 09/18/24 09/19/24
06:59 06:59 06:59
Intake Total 250 / 250 1330 / 1330
Output Total 2325 / 2325 3225 / 3225
Balance -2074 / -2074 -1894 / -1894
Physical Exam
Physical Exam
GI: Soft, Non Distended and Non Tender
--- NOTE | 2024-09-18 14:10 | CON.CAR ---
Consultation
Consultation Request
Date/Time Consultation Requested: 09/18/2024:10 AM
Date/Time Consultation Performed: 09/18/2024 2 PM
Requesting Provider: Dr. Banerjee
Performing Provider: Dr. Natasha Barrientos
Reason for Consultation: Heart failure atrial fibrillation
Medical History
-
Chief Complaint: Shortness of breath
History of Present Illness:
Patient with history of atrial fibrillation (Coumadin/sotalol) currently in sinus rhythm, CVA, DVT with PE (DOAC failure) who presents complaining of dyspnea. He also was noted to have right flank pain. Symptoms were acute on chronic.
He is chronically on Coumadin and INRs have been running elevated by report. He presented with hemoglobin 6.5 and underwent transfusion of 2 units of packed red blood cells. He was felt to have heart failure and was diuresed.
He has prior history of recurrent DVT/ PE previously seen by hematology previously felt to have multiple DOAC failures, hence being on Coumadin. IVC filter previously has been removed.
He has history of paroxysmal atrial fibrillation. For which he remains on sotalol and does fairly well. He is followed at the [facility]. He does feel palpitations every week or 2 and they could last about 1 hour. He continues on
Coumadin.
He tells me that they believe that he has coronary artery disease and plan was for catheterization but because previously there was a power outage catheterization was not performed and he has elected conservative treatment.
He has ulcerative colitis. History of esophagitis on omeprazole
He tells me he has had 6 strokes/1 at (cerebral palsy)
He has hypertension. He has hyperlipidemia.
He has Parkinson's disease. He is morbidly obesity.
Past Medical History
Past Medical History: Arrhythmias (Atrial fibrillation.), CHF (Heart failure with preserved ejection fraction.), GERD (History of esophagitis), HTN, Hypercholesterolemia and Other (Recurrent DVT/PE with DOAC failure. IVC filter removed. Ulcerative
colitis. Parkinson's. Cervical spine stenosis. Cerebral palsy.)
Past Surgical History: Orthopedic (Foot surgery)
Social History
Tobacco: Non-Smoker
Alcohol: None
Allergies / Home Medications
Allergy/AdvReac Type Severity Reaction Status Date / Time
latex Allergy Itching Verified 09/16/24 18:17
pantoprazole (From Protonix) Allergy Anaphylaxis-lip Verified 09/16/24 18:17
swelling
from IV
pantoprazole
peanut Allergy wheezing, Verified 09/16/24 18:17
swelling
pollen extracts Allergy nasal Verified 09/16/24 18:17
congestion
prednisone Allergy numbness/ti Verified 09/16/24 23:39
ngling
Tetanus Vaccines and Toxoid Allergy diarrhea Verified 09/16/24 23:39
�Medication �Instructions �Recorded �Confirmed �Type
gabapentin 100 mg capsule 200 mg PO TID Neurological 03/15/21 09/16/24 History
Condition
atorvastatin 80 mg tablet (Lipitor) 80 mg PO HS High cholesterol 08/15/21 09/16/24 History
carbidopa 25 mg-levodopa 100 mg 1.5 tab PO TID Neurological 08/15/21 09/16/24 History
tablet Condition
diphenhydramine HCl 25 mg capsule 25 mg PO DAILY PRN allergies 08/15/21 09/16/24 History
(Benadryl)
omeprazole 40 mg capsule,delayed 40 mg PO BID Gastrointestinal issue 02/19/22 09/16/24 History
release
sotalol 120 mg tablet 120 mg PO Q12H Arrhythmia 02/19/22 09/16/24 History
ammonium lactate 12 % lotion 1 applic topical BID Skin issues 02/24/22 09/16/24 Rx
#225 grams
acetaminophen 325 mg tablet 650 mg (2 x 325 mg) PO Q4HPRN PRN 03/23/22 09/16/24 Rx
mild pain #1 tab
torsemide 20 mg tablet 10 mg PO DAILY Fluid 05/22/22 09/16/24 History
retention/Swelling
enoxaparin 120 mg/0.8 mL 110 mg (0.7333 mL) SC Q12 #8 mL 05/30/22 09/16/24 Rx
subcutaneous syringe
warfarin 3 mg tablet 3 mg PO SUMOTUWETHSA 09/16/24 09/16/24 History
warfarin 3 mg tablet 4.5 mg PO FR 09/16/24 09/16/24 History
Review of Systems
-
History Source: Patient
All other systems: Negative unless noted
Respiratory: Trouble Breathing
Musculoskeletal: Muscle Pain and Edema
Physical Exam
Vital Signs
Temp Pulse Resp BP Pulse Ox
97.7 F 59 14 103/54 95
09/18/24 11:43 09/18/24 11:43 09/18/24 11:43 09/18/24 11:43 09/18/24 11:43
Lab Results
09/18/24 04:03
09/18/24 04:03
General: Pleasant man
Heart: Distant heart sounds RRR, no murmurs, No S3, S4, no rubs.
Lungs: Coarse anterior breath
Extremities: No clubbing, cyanosis legs are wrapped and edema right greater than left
Neuro: Awake and answers questions.
Troponin I < 0.012 ng/ml 09/17/24 15:04
Kjz-[id number]-Mnfcfuqzizd Pept 200 pg/ml 09/16/24 21:02
Impression / Plan
-
Environmental Health Physician: Dr. Shannon [facility]
Impression:
Shortness of breath which is multifactorial in the setting of severe anemia
Heart failure with preserved ejection fraction
Paroxysmal atrial fibrillation on sotalol
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
Removed IVC filter
Coronary artery disease
Hypertension
Hyperlipidemia
Parkinson's disease
Ulcerative colitis
Morbid obesity
Multiple strokes per patient right parietal ischemic stroke 2014
Cerebral palsy
History of seizures
Echocardiogram 05/23/2022: Normal left ventricular ejection fraction. 55 to 60% mild TR.
Plan:
Dyspnea on exertion is multifactorial mostly related to severe anemia status post transfusion (2 units packed red blood cells). GI evaluating given symptomatic acute on chronic anemia with no obvious evidence of bleeding. Patient with known
ulcerative colitis. Patient with history of esophagitis in addition. The plan for colonoscopy was unremarkable from 1.5 (2.25 this a.m.)
Heart failure with preserved ejection fraction
-He received IV Lasix and her weight has decreased 6 pounds. He had received 2 units of packed red blood cells. Increased volume likely in part related to severe anemia and then transfusion.
-Follow input/output and daily weights.
-Continue diuretic
-Last echocardiogram stable. Repeat.
-Chest x-ray reviewed and stable. Troponins negative.
- Follow exam.
Paroxysmal atrial fibrillation
- On Coumadin for both atrial fibrillation and DVT/PE
- Currently in sinus rhythm on sotalol. Follow telemetry. EKGs reviewed.
- QT interval stable. Avoid QT prolonging medications if possible and monitor QT by EKG and telemetry monitoring.
- Coumadin on hold INR 2.25. Awaiting colonoscopy.
- Likely would need to start heparin if able once INR less than 2 more so for recurrent DVTs/PEs and DOAC failure
Coronary artery disease
- He tells me he previously had testing and has coronary disease and they wanted to do a catheterization however was not performed because of electrical issues that day. He prefers conservative management. No chest pain noted. Troponins negative.
- Continue risk factor modification and follow-up with cardiology.
History of multiple strokes by report and cerebral palsy
- Noted
- Continue risk factor modification
History of recurrent DVT/PEs with failure of DOAC's on Coumadin. No longer has IVC filter in place it was removed previously.
Hypertension with stable blood pressure.
Hyperlipidemia on atorvastatin.
Request records from [facility].
Data Reviewed
-
EKG: Tracing Personally Visualized and interpreted and Report Reviewed by me
Radiology: Image Personally Visualized and interpreted and Report Reviewed by me
Ultrasound: Report Reviewed by me
Medical Tests (Nuc Med, Echo etc): Image Personally Visualized and interpreted
Labs: Labs Reviewed by me
Old Records: Requested and Reviewed
[2024-09-18] MEDS: LIPITOR 80 MG PO (21:22)
[2024-09-18 21:25] LABS: INR 1.68; PT 20.0 Sec (11.4-14.6)
[2024-09-18 21:52] LABS: APTT 37.1 Sec (23.4-35.0)
--- NOTE | 2024-09-18 22:30 | PTCARENOTE ---
Pt 2110 INR result 1.68. HOP STRAINER notified. Heparin gtt initiated.
[2024-09-18] MEDS: HEPARIN 25000 UNITS/250 ML IV (22:54)
[2024-09-19] MEDS: ANCEF 5 IV ×3 (00:38→16:19)
[2024-09-19 03:00] VITALS: BP 124/68
[2024-09-19 05:40] LABS: Hematocrit 28.6 % (39.0-52.0); Hemoglobin 8.0 g/dL (13.0-18.0); Mean Corp Hgb Conc. 28.0 g/dL (33.0-37.0); Mean Corpuscular Volume 73.9 fL (80.0-94.0); Nucleated Red Blood Cells % 0 % (-); Platelet Count 296 10^3/uL (130-400); Red Cell Dist. Width 24.3 % (11.5-14.5)
[2024-09-19 05:43] LABS: INR 1.53; PT 18.6 Sec (11.4-14.6)
[2024-09-19 05:45] LABS: APTT 70.3 Sec (23.4-35.0)
[2024-09-19 05:55] LABS: Blood Urea Nitrogen 21 mg/dl (9-20); Calcium 8.8 mg/dl (8.4-10.2); Carbon Dioxide 26 mmol/L (22-30); Chloride 104 mmol/L (98-107); Estimated Creatinine Clearance 79 ml/min; Glucose 87 mg/dl (70-99); Potassium 4.4 mmol/L (3.5-5.1); Sodium 136 mmol/L (135-145); eGFR > 60.00
[2024-09-19] MEDS: HEPARIN 2200 UNITS IV (05:56)
[2024-09-19 06:00] VITALS: BMI 41.5
[2024-09-19 07:32] VITALS: BP 106/64
[2024-09-19] MEDS: VITAMIN B-12 1000 MCG PO (07:42)
[2024-09-19] MEDS: BETAPACE 120 MG PO (07:42)
[2024-09-19] MEDS: NEURONTIN 200 MG PO ×3 (07:42→21:03)
[2024-09-19] MEDS: SINEMET 25-100 1.5 TABLET PO ×3 (07:43→21:02)
[2024-09-19] MEDS: LASIX 40 MG IV (07:43)
[2024-09-19] MEDS: DESENEX/MITRAZOL/ZEASORB 1 APPLIC TOPICAL ×2 (07:48→21:03)
--- NOTE | 2024-09-19 10:25 | W.PN.CARDCBS ---
Addendum entered and electronically signed by Tyler Benavidez MD 09/19/24 17:53:
69-year-old man admitted with hemoglobin of 6.5 with symptoms of dyspnea and right flank pain
PMH: Recurrent DVT/PE, on warfarin, history of IVC filter, extracted, PAF on sotalol, suspected CAD by history, ulcerative colitis, esophagitis, cerebral palsy, Parkinson's disease, morbid obesity, cervical stenosis, hypertension,
hypercholesterolemia, prior foot surgery, Edema on torsemide
current medications: Furosemide 40 mg IV daily, cefazolin 1 g every 8, atorvastatin 80 mg a day, Sinemet 25/101.5 tablets 3 times daily, gabapentin 200 3 times daily, sotalol 120 twice daily, B12 and MiraLAX
Intake and output -1.3 L, weight is 109.5 kg, if accurate down 2.7 kg,
ECG normal sinus rhythm, normal ECG, normal QTc
Hemoglobin is 8.0, was 6.5 on admit, BUN is 21 creatinine is 1 potassium is 4.4, troponin undetectable, proBNP is 200, was 35 in the past
Impression:
Blood loss anemia, presumably related to ulcerative colitis
Cellulitis of right lower extremity
Acute on chronic HFpEF
Paroxysmal atrial fibrillation on sotalol, currently sinus rhythm
Ulcerative colitisHistory of DVT/PE
Stasis dermatitis
Cerebral palsy
Hypertension
Hyperlipidemia
Parkinson's
History of seizures
Obesity
Plan:
Continue IV Lasix
Okay to proceed with colonoscopy tomorrow
Original Note:
Today's Communication / Plan
-
echo TODAY
Coumadin on hold, continue IV heparin
Anticipated Colonoscopy 09/20/24
Outpatient cardiology records have been requested
Impression / Plan
-
Chief Recordist: Dr. Shannon [facility],
Impression:
Presented 09/16/2024 with progressively worsening dyspnea/SOB, right thigh pain
Symptomatic Microcytic Anemia
Initial hemoglobin 6.5, status post 2 units of packed RBCs (1 unit 09/16, 1 unit 09/17)
Shortness of breath, suspect multifactorial in the setting of severe anemia
Acute Heart failure exacerbation with previously preserved ejection fraction
Paroxysmal atrial fibrillation on sotalol
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
Removed IVC filter
Coronary artery disease
Hypertension
Hyperlipidemia
Parkinson's disease
Ulcerative colitis
Morbid obesity
Multiple strokes per patient right parietal ischemic stroke 2014
Cerebral palsy
History of seizures
Echocardiogram 05/23/2022: Normal left ventricular ejection fraction. 55 to 60% mild TR.
Plan:
Presented 09/16/24 with dyspnea on exertion is multifactorial mostly related to severe anemia status post transfusion (2 units packed red blood cells).
-GI evaluating given symptomatic acute on chronic anemia with no obvious evidence of bleeding. Patient with known ulcerative colitis. Patient with history of esophagitis in addition.
The plan for colonoscopy 09/20/2024 once INR <1.5
Continue monitor H&H. Transfuse to keep hemoglobin above 7, would give additional IV Lasix if patient requires additional transfusion
Continue IV PPI
Heart failure with preserved ejection fraction
-He had received 2 units of packed red blood cells on admission. Increased volume likely in part related to severe anemia and then transfusion.
-Ongoing diuresis with IV Lasix, weight is down 6 pounds since admission. Symptotically feeling better but still not back to baseline
-Follow input/output and daily weights.
-Stable renal function with creatinine of 1.0
-Last echocardiogram from 2022 was stable. Repeat echo has been ordered.
-Chest x-ray reviewed and stable. Troponins negative.
Paroxysmal atrial fibrillation
- On Coumadin for both atrial fibrillation and DVT/PE
- Currently in sinus rhythm on sotalol. Follow telemetry. EKGs reviewed.
- QT interval stable. Avoid QT prolonging medications if possible and monitor QT by EKG and telemetry monitoring.
- Coumadin on hold INR 1.53. Now on heparin given INR less than 2. Awaiting colonoscopy.
- Once stable from a GI standpoint resume anticoagulation. Would continue with heparin until INR greater than 2 given recurrent DVTs/PEs and DOAC failure.
Coronary artery disease
- He tells me he previously had testing and has coronary disease and they wanted to do a catheterization however was not performed because of electrical issues that day. He prefers conservative management. No chest pain noted. Troponins negative.
- Continue risk factor modification and follow-up with cardiology.
History of multiple strokes by report and cerebral palsy
- Continue risk factor modification
History of recurrent DVT/PEs with failure of DOAC's on Coumadin. No longer has IVC filter in place it was removed previously. Once stable from a GI standpoint resume anticoagulation. Would continue with heparin until INR greater than 2 given
recurrent DVTs/PEs and DOAC failure.
Hypertension with stable blood pressure.
Hyperlipidemia on atorvastatin.
I personally Requested records from [facility], Dr. Shannon [phone] on 09/19/2024
History of Present Illness 09/18/2024:
Patient with history of atrial fibrillation (Coumadin/sotalol) currently in sinus rhythm, CVA, DVT with PE (DOAC failure) who presents complaining of dyspnea. He also was noted to have right flank pain. Symptoms were acute on chronic.
He is chronically on Coumadin and INRs have been running elevated by report. He presented with hemoglobin 6.5 and underwent transfusion of 2 units of packed red blood cells. He was felt to have heart failure and was diuresed.
He has prior history of recurrent DVT/ PE previously seen by hematology previously felt to have multiple DOAC failures, hence being on Coumadin. IVC filter previously has been removed.
He has history of paroxysmal atrial fibrillation. For which he remains on sotalol and does fairly well. He is followed at the [facility]. He does feel palpitations every week or 2 and they could last about 1 hour. He continues on
Coumadin.
He tells me that they believe that he has coronary artery disease and plan was for catheterization but because previously there was a power outage catheterization was not performed and he has elected conservative treatment.
He has ulcerative colitis. History of esophagitis on omeprazole
He tells me he has had 6 strokes/1 at (cerebral palsy)
He has hypertension. He has hyperlipidemia.
He has Parkinson's disease. He is morbidly obesity.
Progress Note - Chief Recordist
Subjective
Date of Service: September 19, 2024
Patient seen and examined. Symptotically feeling better but still not at baseline noting SANCHES and fatigue. On room air
Objective
Labs:
09/19/24 05:09
09/19/24 05:09
Labs
Hgb 8.0 g/dL (13.0-18.0) L 09/19/24 05:09
Hct 28.6 % (39.0-52.0) L 09/19/24 05:09
Plt Count 296 10^3/uL (130-400) 09/19/24 05:09
PT 18.6 Sec (11.4-14.6) H 09/19/24 05:09
INR 1.53 09/19/24 05:09
APTT 70.3 Sec (23.4-35.0) H 09/19/24 05:09
Sodium 136 mmol/L (135-145) 09/19/24 05:09
Potassium 4.4 mmol/L (3.5-5.1) 09/19/24 05:09
BUN 21 mg/dl (9-20) H 09/19/24 05:09
Creatinine 1.0 mg/dL (0.7-1.3) 09/19/24 05:09
Glucose 87 mg/dl (70-99) 09/19/24 05:09
Troponins
09/16/24 09/17/24
21:02 15:04
Troponin I < 0.012 < 0.012
Vital Signs and I&O:
Vital Signs
Temp Pulse Resp BP Pulse Ox
98.4 F 63 17 106/64 97
09/19/24 07:32 09/19/24 07:42 09/19/24 07:32 09/19/24 07:43 09/19/24 08:28
Vital Signs
Temp Pulse Resp BP Pulse Ox
98.4 F 63 17 106/64 97
09/19/24 07:32 09/19/24 07:42 09/19/24 07:32 09/19/24 07:43 09/19/24 08:28
Intake & Output
09/17/24 09/18/24 09/19/24 09/20/24
06:59 06:59 06:59 06:59
Intake Total 250 / 250 1330 / 1330 780 / 780
Output Total 2325 / 2325 3225 / 3225 2094 / 2094
Balance -2074 / -2074 -189 / -189 -1315 / -1315
Physical Exam
Physical Exam
GEN: No distress, awake, Ox3, sitting in chair
HEENT: supple, anicteric, mmm
LUNGS: CTA, no wheezes/rales
CV: Reg, S1/S2, 1/6 syst murmur
ABD: soft, BS+, NT/ND
EXT: +1 edema with legs in oscar wraps
NEURO: Gross non-focal
SKIN: No rash, warm, dry, pink
[2024-09-19] MEDS: HEPARIN 25000 UNITS/250 ML IV (11:15)
[2024-09-19 11:26] VITALS: BP 135/75
[2024-09-19 12:11] LABS: APTT 82.9 Sec (23.4-35.0)
--- NOTE | 2024-09-19 13:31 | W.PN.HOSP.TC ---
Today's Communication/Plan
-
Monitor vital signs see plan
Continue with IV diuresis
Monitor hemoglobin
Plan for colonoscopy tomorrow
Assessment / Plan
Assessment / Plan
Gen-AAOx3, NAD
HEENT-NC, AT, anicteric, clear oral mm
Neck-supple
CV-reg, no M, +S1/S2
Lungs-clear B/L
Abd-soft, NT, ND
Ext-right greater than left lower extremity edema, bilateral lower extremity hyperpigmentation below knees
Musculoskeletal-no cyanosis, clubbing
Skin-warm and dry, right thigh circumferential erythema, mild tenderness, mild warmth
Neuro-grossly non-focal
Psych-calm, cooperative
Acute right lower extremity cellulitis -primarily involving the right thigh. Continue IV cefazolin. Suspect trigger is venous stasis dermatitis, poor circulation as a result of prior DVTs.
Doppler ultrasound of bilateral lower extremities negative for DVT on admission.
Erythema improved overnight.
Symptomatic acute on chronic anemia -no evidence of bleeding. Heme-negative stool on admission. Patient denies melena or hematochezia.
Microcytic anemia. Low iron and low ferritin levels noted but TIBC in the normal range.
Suspect some degree of chronic iron deficiency anemia, possibly due to underlying ulcerative colitis, and will need GI workup. GI service has been consulted.
Last colonoscopy was March 2021 showing severe ulcerative colitis from rectum to sigmoid, scope was not advanced past the sigmoid colon given severe inflammation. Nonbleeding internal hemorrhoids and one 5 mm polyp at 20 cm proximal to the anus
noted and resected.
Last EGD was March 2021 showing LA grade B esophagitis without bleeding. Erythematous mucosa in the antrum. 6 cm hiatal hernia. Erythematous duodenopathy.
Hemoglobin 6.5 on admission, 7.6 today after 2 unit PRBC. Baseline hemoglobin unknown.
Vitamin B12 level 302, continue oral repletion. Folic acid normal.
INR was 2.2, status post low-dose vitamin K. INR now 1.5. Plan for colonoscopy 09/20
Acute on chronic heart failure with preserved EF -continue IV Lasix. Clinically improving, weight down 3 kg. I's and O's negative.
He presented with symptoms of exertional dyspnea for several months, fatigue. Unfortunately he does not know his dry weight. Does not weigh himself regularly.
At home he uses furosemide 20 mg daily. 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
BNP on admission was 200. Of note, BNP can be suppressed in the setting of acute heart failure and morbid obesity.
Last echocardiogram in our system was from May 2022, LVEF 55 to 60%, mild TR.
Cardiology following, echo pending
Paroxysmal atrial fibrillation -hold warfarin due to acute anemia. Monitor INR, currently 2.2. He does have a home INR monitor and has been therapeutic at home.
History of ulcerative colitis -patient states it is in remission. Not currently on treatment. 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
History of esophagitis -on omeprazole twice daily at home. Pantoprazole is listed as a allergy, reportedly anaphylaxis. Patient states family will bring in omeprazole today. Because he missed doses of omeprazole in the hospital, he developed
nausea and vomiting yesterday, relieved with antiemetics.
Ideally would minimize use of antiemetics as they interact with both his meds and his underlying disease process including Parkinson's. Discussed with patient in detail, he is to bring omeprazole with him in the future to every hospital visit.
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 Hold warfarin as above.
Chronic lower extremity venous stasis dermatitis -suspect due to history of DVTs. He does use compression stockings at home but will use Gerry wraps for compression moving forward. Discussed with patient.
Essential hypertension -stable.
Hyperlipidemia -atorvastatin.
Parkinson's disease -Sinemet.
Hx cerebral palsy -with chronic right upper extremity numbness due to injury.
Hx seizures
Morbid obesity due to excess calories -outpatient sleep apnea testing if not already done.
Full code
I spent a total of 53 minutes with the patient or on the floor. More than 50% of this time involved counseling and coordination of care.
Anticipated Discharge: > 48 hours
Subjective/Interval History
-
Date of Service: September 19, 2024
Denies pain
Objective Data
-
Labs:
Laboratory Results
09/19/24 09/19/24 09/19/24
05:09 11:44 18:30
WBC 7.2
Hgb 8.0 L
Hct 28.6 L
Plt Count 296
PT 18.6 H
INR 1.53
APTT 70.3 H 82.9 H Pending
Sodium 136
Potassium 4.4
Chloride 104
Carbon Dioxide 26
BUN 21 H
Creatinine 1.0
Glucose 87
Calcium 8.8
Vital Signs:
Vital Signs
Temp Pulse Resp BP Pulse Ox
97.6 F 56 17 135/75 97
09/19/24 11:26 09/19/24 11:26 09/19/24 11:26 09/19/24 11:26 09/19/24 11:26
I&O
09/18/24 09/19/24 09/20/24
06:59 06:59 06:59
Intake Total 1330 / 1330 780 / 780
Output Total 5 / 3225 2094 / 2094
Balance -1895 / -1895 -1315 / -1315
--- NOTE | 2024-09-19 14:31 | W.PN.GI.CBS2 ---
Today's Communication / Plan
-
colonoscopy tomorrow
Assessment / Plan
-
69-year-old male with past medical history of A-fib on Coumadin, CVA, DVT, ulcerative colitis . Parkinson disease, seizure, cerebral palsy, hypertension presenting to the ED with right leg swelling/shortness of breath. He was noted to have a
hemoglobin of 6.5. Denies any overt GI bleeding. Prior history of severe ulcerative colitis diagnosed back in 2021 -he was started on Remicade by Dr. Willoughby which was discontinued with adverse reaction ? vs history of heart failure and was
referred to GI at [place] ( saw once ). Patient claims he has not been following with any GI for the last few years. He claims his ulcerative colitis symptoms in remission and is not taking any medication.
--Acute on chronic anemia. Denies any overt GI bleeding. ED stool brown/occult negative
-- Severe ulcerative colitis-involving rectum/sigmoid colon(up to 40 cm). Noted during colonoscopy in 2021. Colonoscopy was not further advanced at that time because of severe colitis. Details in HPI. Currently not following with any GI and not
on any treatment
-- GERD/esophagitis
-- H.pylori noted in gastric bx 2021. Rx at that time as per patient
--LE Cellulitis
--A-fib on Coumadin. Last INR 2.22. Currently Coumadin on hold
--DVT
plan
Repeat Hb this a.m. 8 .Received 2 units PRBC during this admission. INR 1.53 this am
Continue monitor H&H. Transfuse to keep hemoglobin above 7
colonoscopy tomorrow
bowel prep today
CLD.NPO after MN
Continue PPI (documented anaphylaxis with IV pantoprazole. Patient has been using omeprazole at home)
Total Time Spent with Patient (in minutes): 35
Subjective
Subjective
Date of Service: September 19, 2024
no c/o
Objective
Data Reviewed
Laboratory Data:
Laboratory Results
09/19/24 05:09
09/19/24 05:09
Laboratory Results
PT 18.6 Sec (11.4-14.6) H 09/19/24 05:09
INR 1.53 09/19/24 05:09
APTT 82.9 Sec (23.4-35.0) H 09/19/24 11:44
Total Bilirubin 1.3 mg/dl (0.2-1.3) 09/16/24 18:33
AST 20 U/L (17-59) 09/16/24 18:33
ALT 13 U/L (0-50) 09/16/24 18:33
Alkaline Phosphatase 67 U/L (38-126) 09/16/24 18:33
Vital Signs and I&O:
Vital Signs
Temp Pulse Resp BP Pulse Ox
97.6 F 56 17 135/75 97
09/19/24 11:26 09/19/24 11:26 09/19/24 11:26 09/19/24 11:26 09/19/24 11:26
I&O
09/18/24 09/19/24 09/20/24
06:59 06:59 06:59
Intake Total 1330 / 1330 780 / 780
Output Total 3225 / 3225 2094 / 2094
Balance -1895 / -1895 -1315 / -1315
Physical Exam
Physical Exam
GI: Soft, Non Distended and Non Tender
[2024-09-19 15:04] VITALS: BP 125/74
[2024-09-19] MEDS: NULYTELY SOLUTION 4 LITERS PO (16:19)
[2024-09-19 19:30] LABS: APTT > 200 Sec (23.4-35.0)
[2024-09-19 20:00] VITALS: BP 134/78
[2024-09-19] MEDS: LIPITOR 80 MG PO (21:03)
[2024-09-19] MEDS: BETAPACE PO (22:44)
[2024-09-19 23:27] VITALS: BP 119/73
[2024-09-20] MEDS: ANCEF 5 IV ×3 (00:59→15:45)
[2024-09-20] MEDS: HEPARIN 25000 UNITS/250 ML IV ×2 (01:58→16:14)
[2024-09-20 04:00] VITALS: BP 119/62
[2024-09-20 04:22] LABS: Hematocrit 28.6 % (39.0-52.0); Hemoglobin 8.1 g/dL (13.0-18.0); Mean Corp Hgb Conc. 28.3 g/dL (33.0-37.0); Mean Corpuscular Volume 72.8 fL (80.0-94.0); Nucleated Red Blood Cells % 0 % (-); Platelet Count 280 10^3/uL (130-400); Red Cell Dist. Width 24.1 % (11.5-14.5)
[2024-09-20 04:27] LABS: INR 1.39; PT 17.3 Sec (11.4-14.6)
[2024-09-20 04:28] LABS: APTT 82.1 Sec (23.4-35.0)
[2024-09-20 04:46] LABS: Blood Urea Nitrogen 17 mg/dl (9-20); Calcium 8.6 mg/dl (8.4-10.2); Carbon Dioxide 23 mmol/L (22-30); Chloride 104 mmol/L (98-107); Estimated Creatinine Clearance 88 ml/min; Glucose 78 mg/dl (70-99); Potassium 4.0 mmol/L (3.5-5.1); Sodium 136 mmol/L (135-145); eGFR > 60.00
[2024-09-20 06:15] VITALS: BMI 41.2
[2024-09-20 07:34] VITALS: BP 136/68
[2024-09-20] MEDS: SINEMET 25-100 1.5 TABLET PO ×3 (07:41→21:36)
[2024-09-20] MEDS: BETAPACE 120 MG PO ×2 (07:41→20:27)
[2024-09-20] MEDS: LASIX 40 MG IV (07:41)
[2024-09-20] MEDS: NEURONTIN 200 MG PO ×3 (07:41→20:58)
[2024-09-20] MEDS: VITAMIN B-12 1000 MCG PO (07:43)
[2024-09-20] MEDS: DESENEX/MITRAZOL/ZEASORB 1 APPLIC TOPICAL ×2 (07:43→20:31)
[2024-09-20 10:14] LABS: APTT 125.9 Sec (23.4-35.0)
[2024-09-20 11:15] VITALS: BP 118/65
--- NOTE | 2024-09-20 11:48 | W.PN.HOSP.TC ---
Today's Communication/Plan
-
Monitor vitals
see plan
IV heparin
Plan for colonoscopy today
Monitor hemoglobin
Continue with IV diuresis
Assessment / Plan
Assessment / Plan
Gen-AAOx3, NAD
HEENT-NC, AT, anicteric, clear oral mm
Neck-supple
CV-reg, no M, +S1/S2
Lungs-clear B/L
Abd-soft, NT, ND
Ext-right greater than left lower extremity edema, bilateral lower extremity hyperpigmentation below knees
Musculoskeletal-no cyanosis, clubbing
Skin-warm and dry, right thigh circumferential erythema, mild tenderness, mild warmth
Neuro-grossly non-focal
Psych-calm, cooperative
Acute right lower extremity cellulitis -primarily involving the right thigh. Continue IV cefazolin. Suspect trigger is venous stasis dermatitis, poor circulation as a result of prior DVTs.
Doppler ultrasound of bilateral lower extremities negative for DVT on admission.
Erythema improved overnight.
Symptomatic acute on chronic anemia -no evidence of bleeding. Heme-negative stool on admission. Patient denies melena or hematochezia.
Microcytic anemia. Low iron and low ferritin levels noted but TIBC in the normal range.
Suspect some degree of chronic iron deficiency anemia, possibly due to underlying ulcerative colitis, and will need GI workup. GI service has been consulted.
Last colonoscopy was March 2021 showing severe ulcerative colitis from rectum to sigmoid, scope was not advanced past the sigmoid colon given severe inflammation. Nonbleeding internal hemorrhoids and one 5 mm polyp at 20 cm proximal to the anus
noted and resected.
Last EGD was March 2021 showing LA grade B esophagitis without bleeding. Erythematous mucosa in the antrum. 6 cm hiatal hernia. Erythematous duodenopathy.
Hemoglobin 6.5 on admission, 7.6 today after 2 unit PRBC. Baseline hemoglobin unknown.
Vitamin B12 level 302, continue oral repletion. Folic acid normal.
INR was 2.2, status post low-dose vitamin K. INR now 1.39. Plan for colonoscopy 09/20
Acute on chronic heart failure with preserved EF -continue IV Lasix. Clinically improving, weight down 3 kg. I's and O's negative.
He presented with symptoms of exertional dyspnea for several months, fatigue. Unfortunately he does not know his dry weight. Does not weigh himself regularly.
At home he uses furosemide 20 mg daily. His nuclear equipment test engineer is located at the [facility].
BNP on admission was 200. Of note, BNP can be suppressed in the setting of acute heart failure and morbid obesity.
Last echocardiogram in our system was from May 2022, LVEF 55 to 60%, mild TR.
Cardiology following, echo 09/19 with EF 55 to 60%, mildly thickened mitral leaflets with trace mitral regurgitation
Paroxysmal atrial fibrillation -hold warfarin due to acute anemia. Monitor INR. He does have a home INR monitor and has been therapeutic at home.
History of ulcerative colitis -patient states it is in remission. Not currently on treatment. His accounts payable lead is at the [facility].
History of esophagitis -on omeprazole twice daily at home. Pantoprazole is listed as a allergy, reportedly anaphylaxis. Patient states family will bring in omeprazole today. Because he missed doses of omeprazole in the hospital, he developed
nausea and vomiting yesterday, relieved with antiemetics.
Ideally would minimize use of antiemetics as they interact with both his meds and his underlying disease process including Parkinson's. Discussed with patient in detail, he is to bring omeprazole with him in the future to every hospital visit.
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 Hold warfarin as above.
Chronic lower extremity venous stasis dermatitis -suspect due to history of DVTs. He does use compression stockings at home but will use Gerry wraps for compression moving forward. Discussed with patient.
Essential hypertension -stable.
Hyperlipidemia -atorvastatin.
Parkinson's disease -Sinemet.
Hx cerebral palsy -with chronic right upper extremity numbness due to injury.
Hx seizures
Morbid obesity due to excess calories -outpatient sleep apnea testing if not already done.
Full code
Anticipated Discharge: 24 - 48 hours
Subjective/Interval History
-
Date of Service: September 20, 2024
Denies pain
Objective Data
-
Labs:
Laboratory Results
09/20/24 09/20/24 09/20/24
04:05 09:54 17:00
WBC 8.5
Hgb 8.1 L
Hct 28.6 L
Plt Count 280
PT 17.3 H
INR 1.39
APTT 82.1 H 125.9 H Pending
Sodium 136
Potassium 4.0
Chloride 104
Carbon Dioxide 23
BUN 17
Creatinine 0.9
Glucose 78
Calcium 8.6
Vital Signs:
Vital Signs
Temp Pulse Resp BP Pulse Ox
98.2 F 61 17 118/65 96
09/20/24 11:15 09/20/24 11:15 09/20/24 11:15 09/20/24 11:15 09/20/24 11:15
I&O
09/19/24 09/20/24 09/21/24
06:59 06:59 06:59
Intake Total 780 / 780 2920 / 2920
Output Total 2094 / 5 2175 / 2175
Balance -1315 / -1315 745 / 745
--- NOTE | 2024-09-20 12:40 | W.PN.GI.CBS2 ---
Today's Communication / Plan
-
EGD/colonoscopy for tomorrow
Assessment / Plan
-
69-year-old male with past medical history of A-fib on Coumadin, CVA, DVT, ulcerative colitis . Parkinson disease, seizure, cerebral palsy, hypertension presenting to the ED with right leg swelling/shortness of breath. He was noted to have a
hemoglobin of 6.5. Denies any overt GI bleeding. Prior history of severe ulcerative colitis diagnosed back in 2021 -he was started on Remicade by Dr. Willoughby which was discontinued with adverse reaction ? vs history of heart failure and was
referred to GI at [place] ( saw once ). Patient claims he has not been following with any GI for the last few years. He claims his ulcerative colitis symptoms in remission and is not taking any medication.
--Acute on chronic anemia. Denies any overt GI bleeding. ED stool brown/occult negative
-- Severe ulcerative colitis-involving rectum/sigmoid colon(up to 40 cm). Noted during colonoscopy in 2021. Colonoscopy was not further advanced at that time because of severe colitis. Details in HPI. Currently not following with any GI and not
on any treatment
-- GERD/esophagitis
-- H.pylori noted in gastric bx 2021. Rx at that time as per patient
--LE Cellulitis
--A-fib on Coumadin. Last INR 2.22. Currently Coumadin on hold
--DVT
plan
EGD/colonoscopy moved to tomorrow
hold heparin at 2am
add more prep today and keep on clears
Subjective
Subjective
Date of Service: September 20, 2024
Pt still on heparin, took colon prep but stool still brown
Objective
Data Reviewed
Laboratory Data:
Laboratory Results
09/20/24 04:05
09/20/24 04:05
Laboratory Results
PT 17.3 Sec (11.4-14.6) H 09/20/24 04:05
INR 1.39 09/20/24 04:05
APTT 125.9 Sec (23.4-35.0) H 09/20/24 09:54
Total Bilirubin 1.3 mg/dl (0.2-1.3) 09/16/24 18:33
AST 20 U/L (17-59) 09/16/24 18:33
ALT 13 U/L (0-50) 09/16/24 18:33
Alkaline Phosphatase 67 U/L (38-126) 09/16/24 18:33
Vital Signs and I&O:
Vital Signs
Temp Pulse Resp BP Pulse Ox
98.2 F 61 17 118/65 96
09/20/24 11:15 09/20/24 11:15 09/20/24 11:15 09/20/24 11:15 09/20/24 11:15
I&O
09/19/24 09/20/24 09/21/24
06:59 06:59 06:59
Intake Total 780 / 780 2920 / 2920
Output Total 2095 / 2095 2175 / 2175
Balance -1315 / -1315 745 / 745
Physical Exam
Physical Exam
GI: Soft and Non Tender
--- NOTE | 2024-09-20 13:02 | PN.CDI ---
CDI
- -
CDI:
Physician Documentation Request
Admit Date: 09/16/24 23:51
Dear Doctor Stoney,
Please review the following and provide your response in the progress notes.
Clinical Indicators:
PN, 09/20
#Paroxysmal atrial fibrillation -hold warfarin due to acute anemia.
#...Monitor INR, currently 2.2.
#...does have a home INR monitor and has been therapeutic at home.
Based on the above and your clinical assessment, please clarify the relationship, if any, between these conditions:
Yes, Coumadin is enhancing/contributing to/associated with/due to acute anemia.
No, Coumadin is not enhancing/contributing to/associated with/due to acute anemia but it is due to ___. (Please specify)
Other (please specify)
Unable to determine
Use of terms such as suspected, likely, concern for, or probable (associated with a specific diagnosis that is being evaluated, monitored, or treated as if it exists) are acceptable and can be coded in the inpatient setting, when documented at the
time of discharge.
Thank you,
Sophie River RN BSN CCDS
CDI Specialist
Please contact via tiger text
Please use your independent medical judgment in providing your response.
--- NOTE | 2024-09-20 15:13 | W.PN.CARDCBS ---
Addendum entered and electronically signed by Tyler Orr MD 09/20/24 17:37:
Attending addendum: Patient seen and examined. PA note reviewed and findings confirmed by me.
PE:
Gen: Sitting in chair. Conversant and NAD
HEENT: NC/AT, sclera anicteric
Lungs: Clear to bases bilaterally. No wheezing
CV: RRR
Ext; venous stasis changes +LE edema
RECOMMENDATIONS:
-planned colonoscopy on 09/21/24
-Continue IV heparin for now with planned eventual bridge to therapeutic.
-May have case management assess cost of Lovenox injections after we are sure bleeding risks are acceptable.
Original Note:
Today's Communication / Plan
-
Continue IV diuresis
Coumadin on hold
Continue IV heparin
Anticipate endoscopy/colonoscopy 09/21/2024
Impression / Plan
-
Phlebotomy Manager: Dr. Shannon [facility],
Impression:
Presented 09/16/2024 with progressively worsening dyspnea/SOB, right thigh pain
Symptomatic Microcytic Anemia
Initial hemoglobin 6.5, status post 2 units of packed RBCs (1 unit 09/16, 1 unit 09/17)
Shortness of breath, suspect multifactorial in the setting of severe anemia
Acute Heart failure exacerbation with previously preserved ejection fraction
Paroxysmal atrial fibrillation on sotalol
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
Removed IVC filter
Coronary artery disease
Hypertension
Hyperlipidemia
Parkinson's disease
Ulcerative colitis
Morbid obesity
Multiple strokes per patient right parietal ischemic stroke 2014
Cerebral palsy
History of seizures
Echo 09/19/2024: EF 55 to 60%. No significant valvular disease. PAP 33 mmHg
Echocardiogram 05/23/2022: Normal left ventricular ejection fraction. 55 to 60% mild TR.
Plan:
Presented 09/16/24 with dyspnea on exertion is multifactorial mostly related to severe anemia status post transfusion (2 units packed red blood cells).
-GI evaluating given symptomatic acute on chronic anemia with no obvious evidence of bleeding. Patient with known ulcerative colitis. Patient with history of esophagitis in addition.
Presumably related to ulcerative colitis. The plan for colonoscopy/endoscopy 09/21/2024
Hemoglobin stable at 8.1 after receiving 2 units of blood. Continue monitor H&H. Transfuse to keep hemoglobin above 7, would give additional IV Lasix if patient requires additional transfusion
Continue IV PPI
Heart failure with preserved ejection fraction
-He had received 2 units of packed red blood cells on admission. Increased volume likely in part related to severe anemia and then transfusion.
-Ongoing diuresis with IV Lasix, weight is down 7 pounds since admission. Symptotically feeling better but still not back to baseline
-Follow input/output and daily weights.
-Stable renal function with creatinine of 0.9
-Echo this admission demonstrated preserved ejection fraction and no significant valve disease
-Chest x-ray reviewed and stable. Troponins negative.
Paroxysmal atrial fibrillation
- On Coumadin for both atrial fibrillation and DVT/PE
- Currently in sinus rhythm on sotalol. Follow telemetry. EKGs reviewed.
- QT interval stable. Avoid QT prolonging medications if possible and monitor QT by EKG and telemetry monitoring.
- Coumadin on hold INR 1.39. Now on heparin given INR less than 2. Awaiting colonoscopy.
- Once stable from a GI standpoint resume anticoagulation. Would continue with heparin until INR greater than 2 given recurrent DVTs/PEs and DOAC failure.
Coronary artery disease
- He tells me he previously had testing and has coronary disease and they wanted to do a catheterization however was not performed because of electrical issues that day. He prefers conservative management. No chest pain noted. Troponins negative.
- Continue risk factor modification and follow-up with cardiology.
History of multiple strokes by report and cerebral palsy
- Continue risk factor modification
History of recurrent DVT/PEs with failure of DOAC's on Coumadin. No longer has IVC filter in place it was removed previously. Once stable from a GI standpoint resume anticoagulation. Would continue with heparin until INR greater than 2 given
recurrent DVTs/PEs and DOAC failure.
Hypertension with stable blood pressure.
Hyperlipidemia on atorvastatin.
I personally Requested records from [facility], Dr. Shannon [phone] on 09/19/2024. As of time of this consultation on 09/20/2024 we have not received any records. Once again we will reach out to Nathan
History of Present Illness 09/18/2024:
Patient with history of atrial fibrillation (Coumadin/sotalol) currently in sinus rhythm, CVA, DVT with PE (DOAC failure) who presents complaining of dyspnea. He also was noted to have right flank pain. Symptoms were acute on chronic.
He is chronically on Coumadin and INRs have been running elevated by report. He presented with hemoglobin 6.5 and underwent transfusion of 2 units of packed red blood cells. He was felt to have heart failure and was diuresed.
He has prior history of recurrent DVT/ PE previously seen by hematology previously felt to have multiple DOAC failures, hence being on Coumadin. IVC filter previously has been removed.
He has history of paroxysmal atrial fibrillation. For which he remains on sotalol and does fairly well. He is followed at the [facility]. He does feel palpitations every week or 2 and they could last about 1 hour. He continues on
Coumadin.
He tells me that they believe that he has coronary artery disease and plan was for catheterization but because previously there was a power outage catheterization was not performed and he has elected conservative treatment.
He has ulcerative colitis. History of esophagitis on omeprazole
He tells me he has had 6 strokes/1 at (cerebral palsy)
He has hypertension. He has hyperlipidemia.
He has Parkinson's disease. He is morbidly obesity.
Progress Note - Phlebotomy Manager
Subjective
Date of Service: September 20, 2024
Patient seen and examined. Patient reports he feels less short of breath with improving lower extremity edema but still not to baseline.
Objective
Labs:
09/20/24 04:05
09/20/24 04:05
Labs
Hgb 8.1 g/dL (13.0-18.0) L 09/20/24 04:05
Hct 28.6 % (39.0-52.0) L 09/20/24 04:05
Plt Count 280 10^3/uL (130-400) 09/20/24 04:05
PT 17.3 Sec (11.4-14.6) H 09/20/24 04:05
INR 1.39 09/20/24 04:05
APTT 125.9 Sec (23.4-35.0) H 09/20/24 09:54
Sodium 136 mmol/L (135-145) 09/20/24 04:05
Potassium 4.0 mmol/L (3.5-5.1) 09/20/24 04:05
BUN 17 mg/dl (9-20) 09/20/24 04:05
Creatinine 0.9 mg/dL (0.7-1.3) 09/20/24 04:05
Glucose 78 mg/dl (70-99) 09/20/24 04:05
Troponins
09/17/24
15:04
Troponin I < 0.012
Vital Signs and I&O:
Vital Signs
Temp Pulse Resp BP Pulse Ox
98.2 F 61 17 118/65 96
09/20/24 11:15 09/20/24 11:15 09/20/24 11:15 09/20/24 11:15 09/20/24 11:15
Vital Signs
Temp Pulse Resp BP Pulse Ox
98.2 F 61 17 118/65 96
09/20/24 11:15 09/20/24 11:15 09/20/24 11:15 09/20/24 11:15 09/20/24 11:15
Intake & Output
09/18/24 09/19/24 09/20/24 09/21/24
06:59 06:59 06:59 06:59
Intake Total 1330 / 1330 780 / 780 2920 / 2920
Output Total 5 / 3225 2094 / 2094 217 / 217
Balance -1895 / -1895 -1315 / -1315 745 / 745
Physical Exam
Physical Exam
GEN: No distress, awake, Ox3, sitting in chair
HEENT: supple, anicteric, mmm
LUNGS: CTA, no wheezes/rales
CV: Reg, S1/S2, 1/6 syst murmur
ABD: soft, BS+, NT/ND
EXT: +1 edema with legs in oscar wraps
NEURO: Gross non-focal
SKIN: No rash, warm, dry, pink
[2024-09-20] MEDS: NULYTELY SOLUTION 2 LITERS PO (16:13)
[2024-09-20 16:27] VITALS: BP 138/73
[2024-09-20 17:17] LABS: APTT 78.7 Sec (23.4-35.0)
[2024-09-20 19:00] VITALS: BP 137/72
[2024-09-20] MEDS: LIPITOR 80 MG PO (20:59)
[2024-09-20 23:00] VITALS: BP 126/63
[2024-09-21] VITALS (9 sets, daily range): BP systolic 104–134; BP diastolic 56–82; BMI 41.2
[2024-09-21 00:10] LABS: APTT 108.1 Sec (23.4-35.0)
[2024-09-21] MEDS: ANCEF 5 IV ×3 (00:30→15:44)
--- NOTE | 2024-09-21 02:32 | PTCARENOTE ---
Heparin infusion ended, patient IV flushed and line capped at 0230 as ordered.
[2024-09-21 06:31] LABS: INR 1.26; PT 16.1 Sec (11.4-14.6)
[2024-09-21 06:49] LABS: Blood Urea Nitrogen 15 mg/dl (9-20); Calcium 8.4 mg/dl (8.4-10.2); Carbon Dioxide 24 mmol/L (22-30); Chloride 102 mmol/L (98-107); Estimated Creatinine Clearance 88 ml/min; Glucose 76 mg/dl (70-99); Potassium 4.0 mmol/L (3.5-5.1); Sodium 134 mmol/L (135-145); eGFR > 60.00
[2024-09-21 06:58] LABS: Hematocrit 29.0 % (39.0-52.0); Hemoglobin 8.0 g/dL (13.0-18.0); Mean Corp Hgb Conc. 27.6 g/dL (33.0-37.0); Mean Corpuscular Volume 72.7 fL (80.0-94.0); Nucleated Red Blood Cells % 0 % (-); Platelet Count 268 10^3/uL (130-400); Red Cell Dist. Width 24.7 % (11.5-14.5)
[2024-09-21] MEDS: BETAPACE 120 MG PO ×2 (07:59→20:03)
[2024-09-21] MEDS: NEURONTIN 200 MG PO ×3 (07:59→21:27)
[2024-09-21] MEDS: SINEMET 25-100 1.5 TABLET PO ×3 (07:59→21:27)
[2024-09-21] MEDS: VITAMIN B-12 1000 MCG PO (08:00)
[2024-09-21] MEDS: LASIX 40 MG IV (08:00)
[2024-09-21] MEDS: DESENEX/MITRAZOL/ZEASORB 1 APPLIC TOPICAL ×2 (08:02→20:04)
--- NOTE | 2024-09-21 12:38 | W.PN.HOSP.TC ---
Today's Communication/Plan
-
monitor vitals
see plan
diuresis per cardiology
monitor hgb
restart hep gtt and start coumadin tonite; discussed with GI
Assessment / Plan
Assessment / Plan
Gen-AAOx3, NAD
HEENT-NC, AT, anicteric, clear oral mm
Neck-supple
CV-reg, no M, +S1/S2
Lungs-clear B/L
Abd-soft, NT, ND
Ext-right greater than left lower extremity edema, bilateral lower extremity hyperpigmentation below knees
Musculoskeletal-no cyanosis, clubbing
Skin-warm and dry, right thigh circumferential erythema, mild tenderness, mild warmth
Neuro-grossly non-focal
Psych-calm, cooperative
Acute right lower extremity cellulitis -primarily involving the right thigh. Continue IV cefazolin. Suspect trigger is venous stasis dermatitis, poor circulation as a result of prior DVTs.
Doppler ultrasound of bilateral lower extremities negative for DVT on admission.
Erythema improving
Symptomatic acute on chronic anemia -no evidence of bleeding. Heme-negative stool on admission. Patient denies melena or hematochezia.
Coumadin as all blood thinners could be contributing to his anemia
Microcytic anemia. Low iron and low ferritin levels noted but TIBC in the normal range.
Suspect some degree of chronic iron deficiency anemia, possibly due to underlying ulcerative colitis, and will need GI workup. GI service has been consulted.
Last colonoscopy was March 2021 showing severe ulcerative colitis from rectum to sigmoid, scope was not advanced past the sigmoid colon given severe inflammation. Nonbleeding internal hemorrhoids and one 5 mm polyp at 20 cm proximal to the anus
noted and resected.
Last EGD was March 2021 showing LA grade B esophagitis without bleeding. Erythematous mucosa in the antrum. 6 cm hiatal hernia. Erythematous duodenopathy.
Hemoglobin 6.5 on admission, 7.6 today after 2 unit PRBC. Baseline hemoglobin unknown.
Vitamin B12 level 302, continue oral repletion. Folic acid normal.
INR was 2.2, status post low-dose vitamin K. INR now 1.2. Status post EGD and colonoscopy 09/21. EGD with large hiatal hernia. Colonoscopy with 10 mm polyp in the proximal transverse colon that was removed. Hemorrhoids. Discussed with GI and
they are okay with patient being started back on heparin drip and Coumadin tonight. Patient has insurance does not cover Lovenox injection. Will ask geriatric case manager to find out. Currently restart heparin drip and start Coumadin.
Acute on chronic heart failure with preserved EF -continue IV Lasix
He presented with symptoms of exertional dyspnea for several months, fatigue. Unfortunately he does not know his dry weight. Does not weigh himself regularly.
At home he uses furosemide 20 mg daily. His credentials specialist is located at the [facility].
BNP on admission was 200. Of note, BNP can be suppressed in the setting of acute heart failure and morbid obesity.
Last echocardiogram in our system was from May 2022, LVEF 55 to 60%, mild TR.
Cardiology following, echo 09/19 with EF 55 to 60%, mildly thickened mitral leaflets with trace mitral regurgitation
Paroxysmal atrial fibrillation -hold warfarin due to acute anemia. Monitor INR. He does have a home INR monitor and has been therapeutic at home.
History of ulcerative colitis -patient states it is in remission. Not currently on treatment. His chronometer repairer is at the [facility].
History of esophagitis -on omeprazole twice daily at home. Pantoprazole is listed as a allergy, reportedly anaphylaxis. Patient states family will bring in omeprazole today. Because he missed doses of omeprazole in the hospital, he developed
nausea and vomiting yesterday, relieved with antiemetics.
Ideally would minimize use of antiemetics as they interact with both his meds and his underlying disease process including Parkinson's. Discussed with patient in detail, he is to bring omeprazole with him in the future to every hospital visit.
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 Hold warfarin as above.
Chronic lower extremity venous stasis dermatitis -suspect due to history of DVTs. He does use compression stockings at home but will use Gerry wraps for compression moving forward. Discussed with patient.
Essential hypertension -stable.
Hyperlipidemia -atorvastatin.
Parkinson's disease -Sinemet.
Hx cerebral palsy -with chronic right upper extremity numbness due to injury.
Hx seizures
Morbid obesity due to excess calories -outpatient sleep apnea testing if not already done.
Full code
I spent a total of 52 minutes with the patient or on the floor. More than 50% of this time involved counseling and coordination of care.
Anticipated Discharge: 24 - 48 hours
Subjective/Interval History
-
Date of Service: September 21, 2024
denies pain
Objective Data
-
Labs:
Laboratory Results
09/21/24
05:09
WBC 5.9
Hgb 8.0 L
Hct 29.0 L
Plt Count 268
PT 16.1 H
INR 1.26
Sodium 134 L
Potassium 4.0
Chloride 102
Carbon Dioxide 24
BUN 15
Creatinine 0.9
Glucose 76
Calcium 8.4
Vital Signs:
Vital Signs
Temp Pulse Resp BP Pulse Ox
97.6 F 59 16 130/72 99
09/21/24 11:00 09/21/24 11:00 09/21/24 11:00 09/21/24 11:00 09/21/24 11:00
I&O
09/20/24 09/21/24 09/22/24
06:59 06:59 06:59
Intake Total 2920 / 2920 480 / 480 100 / 100
Output Total 2175 / 2175 1200 / 1200
Balance 745 / 745 -720 / -720 100 / 100
--- NOTE | 2024-09-21 13:29 | W.PN.UPDATE ---
Update Note
Progress Note Update
Patient underwent endoscopy which showed large 7 cm hiatal hernia with normal stomach and duodenum. Colonoscopy with polyp in transverse colon and diverticulosis in right and left colon. Internal hemorrhoids but no active source of bleeding. Once
patient is cleared from GI standpoint would resume warfarin with ongoing heparin bridge or Lovenox injections if patient should be discharged home until INR is greater than 2 given prior history of DVT/PE and paroxysmal atrial fibrillation.
Per review of telemetry no evidence of atrial fibrillation or arrhythmias noted. Patient should return to outpatient research physicist Dr. Shannon at [facility] [place].
Given no active cardiac issues cardiology will sign off. Would be happy to resee if needed
[2024-09-21 15:04] LABS: Hematocrit 32.9 % (39.0-52.0); Hemoglobin 9.0 g/dL (13.0-18.0); Mean Corp Hgb Conc. 27.4 g/dL (33.0-37.0); Mean Corpuscular Volume 73.9 fL (80.0-94.0); Red Cell Dist. Width 24.6 % (11.5-14.5)
[2024-09-21 15:14] LABS: APTT 25.8 Sec (23.4-35.0)
[2024-09-21] MEDS: HEPARIN 4400 UNITS IV ×2 (15:37→15:40)
--- NOTE | 2024-09-21 15:46 | CM ---
CM following for discharge planning. Osorio declines VN due to prior experience.
Plan: Discharge to home with no needs per patient refusal for services.
[2024-09-21] MEDS: COUMADIN 4 MG PO (17:55)
[2024-09-21] MEDS: HEPARIN 25000 UNITS/250 ML IV (20:26)
[2024-09-21] MEDS: LIPITOR 80 MG PO (21:27)
[2024-09-21 22:06] LABS: APTT > 200 Sec (23.4-35.0)
[2024-09-22] VITALS (7 sets, daily range): BP systolic 113–138; BP diastolic 56–74; PULSE 69; O2SAT 95; BMI 41.0
[2024-09-22] MEDS: ANCEF 5 IV ×3 (01:18→15:28)
[2024-09-22 06:03] LABS: Hematocrit 27.1 % (39.0-52.0); Hemoglobin 7.5 g/dL (13.0-18.0); Mean Corp Hgb Conc. 27.7 g/dL (33.0-37.0); Mean Corpuscular Volume 73.8 fL (80.0-94.0); Nucleated Red Blood Cells % 0 % (-); Platelet Count 216 10^3/uL (130-400); Red Cell Dist. Width 24.4 % (11.5-14.5)
[2024-09-22 06:18] LABS: INR 1.22; PT 16.0 Sec (11.4-14.6)
[2024-09-22 06:40] LABS: Blood Urea Nitrogen 18 mg/dl (9-20); Calcium 8.9 mg/dl (8.4-10.2); Carbon Dioxide 26 mmol/L (22-30); Chloride 104 mmol/L (98-107); Estimated Creatinine Clearance 79 ml/min; Glucose 92 mg/dl (70-99); Potassium 3.7 mmol/L (3.5-5.1); Sodium 134 mmol/L (135-145); eGFR > 60.00
[2024-09-22 07:08] LABS: APTT 89.1 Sec (23.4-35.0)
[2024-09-22] MEDS: VITAMIN B-12 1000 MCG PO (08:09)
[2024-09-22] MEDS: NEURONTIN 200 MG PO ×3 (08:09→20:52)
[2024-09-22] MEDS: LASIX 40 MG IV (08:09)
[2024-09-22] MEDS: BETAPACE 120 MG PO ×2 (08:09→20:48)
[2024-09-22] MEDS: SINEMET 25-100 1.5 TABLET PO ×3 (08:09→21:01)
[2024-09-22] MEDS: DESENEX/MITRAZOL/ZEASORB 1 APPLIC TOPICAL ×2 (08:10→21:02)
--- NOTE | 2024-09-22 08:33 | W.PN.GI.CBS2 ---
Today's Communication / Plan
-
f/u path
Assessment / Plan
-
69-year-old male with past medical history of A-fib on Coumadin, CVA, DVT, ulcerative colitis . Parkinson disease, seizure, cerebral palsy, hypertension presenting to the ED with right leg swelling/shortness of breath. He was noted to have a
hemoglobin of 6.5. Denies any overt GI bleeding. Prior history of severe ulcerative colitis diagnosed back in 2021 -he was started on Remicade by Dr. Willoughby which was discontinued with adverse reaction ? vs history of heart failure and was
referred to GI at [place] ( saw once ). Patient claims he has not been following with any GI for the last few years. He claims his ulcerative colitis symptoms in remission and is not taking any medication.
--Acute on chronic anemia. Denies any overt GI bleeding. ED stool brown/occult negative
-- Severe ulcerative colitis-involving rectum/sigmoid colon(up to 40 cm). Noted during colonoscopy in 2021. Colonoscopy was not further advanced at that time because of severe colitis. Details in HPI. Currently not following with any GI and not
on any treatment
-- GERD/esophagitis
-- H.pylori noted in gastric bx 2021. Rx at that time as per patient
--LE Cellulitis
--A-fib on Coumadin. Last INR 2.22. Currently Coumadin on hold
--DVT
plan
will f/u pathology of egd/colonoscopy
can anticoagulate as needed
pt will f/u with outpatient GI at [place] in future
will sign off call with questions
Subjective
Subjective
Date of Service: September 22, 2024
Pt with no bleeding post egd/colonoscopy. no abd pain
Objective
Data Reviewed
Laboratory Data:
Laboratory Results
09/22/24 05:54
Laboratory Results
PT 16.0 Sec (11.4-14.6) H 09/22/24 05:54
INR 1.22 09/22/24 05:54
APTT 89.1 Sec (23.4-35.0) H 09/22/24 05:54
Total Bilirubin 1.3 mg/dl (0.2-1.3) 09/16/24 18:33
AST 20 U/L (17-59) 09/16/24 18:33
ALT 13 U/L (0-50) 09/16/24 18:33
Alkaline Phosphatase 67 U/L (38-126) 09/16/24 18:33
Vital Signs and I&O:
Vital Signs
Temp Pulse Resp BP Pulse Ox
99.4 F 66 16 117/64 94
09/22/24 03:00 09/22/24 03:00 09/22/24 03:00 09/22/24 03:00 09/22/24 03:00
I&O
09/21/24 09/22/24 09/23/24
06:59 06:59 06:59
Intake Total 480 / 480 1680 / 1680
Output Total 1200 / 1200 2049 / 2049
Balance -720 / -720 -370 / -370
Physical Exam
Physical Exam
GI: Soft, Non Distended and Non Tender
--- NOTE | 2024-09-22 12:06 | W.PN.HOSP.TC ---
Today's Communication/Plan
-
Monitor vital signs and see plan
Repeat H&H later today
Continue with Coumadin and heparin drip for bridging
manager maritime for Lovenox cost
Continue with IV Lasix
Assessment / Plan
Assessment / Plan
Gen-AAOx3, NAD
HEENT-NC, AT, anicteric, clear oral mm
Neck-supple
CV-reg, no M, +S1/S2
Lungs-clear B/L
Abd-soft, NT, ND
Ext-right greater than left lower extremity edema, bilateral lower extremity hyperpigmentation below knees
Musculoskeletal-no cyanosis, clubbing
Skin-warm and dry, right thigh circumferential erythema, mild tenderness, mild warmth
Neuro-grossly non-focal
Psych-calm, cooperative
Acute right lower extremity cellulitis -primarily involving the right thigh. Continue IV cefazolin. Suspect trigger is venous stasis dermatitis, poor circulation as a result of prior DVTs.
Doppler ultrasound of bilateral lower extremities negative for DVT on admission.
Erythema improving
Symptomatic acute on chronic anemia -no evidence of bleeding. Heme-negative stool on admission. Patient denies melena or hematochezia.
Coumadin as all blood thinners could be contributing to his anemia
Microcytic anemia. Low iron and low ferritin levels noted but TIBC in the normal range.
Suspect some degree of chronic iron deficiency anemia, possibly due to underlying ulcerative colitis, and will need GI workup. GI service has been consulted.
Last colonoscopy was March 2021 showing severe ulcerative colitis from rectum to sigmoid, scope was not advanced past the sigmoid colon given severe inflammation. Nonbleeding internal hemorrhoids and one 5 mm polyp at 20 cm proximal to the anus
noted and resected.
Last EGD was March 2021 showing LA grade B esophagitis without bleeding. Erythematous mucosa in the antrum. 6 cm hiatal hernia. Erythematous duodenopathy.
Hemoglobin 6.5 on admission, 7.6 today after 2 unit PRBC. Baseline hemoglobin unknown.
Vitamin B12 level 302, continue oral repletion. Folic acid normal.
INR was 2.2, status post low-dose vitamin K. INR now 1.2. Status post EGD and colonoscopy 09/21. EGD with large hiatal hernia. Colonoscopy with 10 mm polyp in the proximal transverse colon that was removed. Hemorrhoids. Discussed with GI and
they are okay with patient being started back on heparin drip and Coumadin. Continue with Coumadin tonight. manager maritime to find out for Lovenox cost
Acute on chronic heart failure with preserved EF -continue IV Lasix. Per patient he was not on torsemide and at home was using furosemide 20 mg daily. Contacted cardiology however no response regarding outpatient diuretic dose. Will likely
discharge him on 40 mg oral daily with close follow-up outpatient with his washcoat wiper.
He presented with symptoms of exertional dyspnea for several months, fatigue. Unfortunately he does not know his dry weight. Does not weigh himself regularly.
At home he uses furosemide 20 mg daily. His washcoat wiper is located at the [facility].
BNP on admission was 200. Of note, BNP can be suppressed in the setting of acute heart failure and morbid obesity.
Last echocardiogram in our system was from May 2022, LVEF 55 to 60%, mild TR.
Cardiology following, echo 09/19 with EF 55 to 60%, mildly thickened mitral leaflets with trace mitral regurgitation
Paroxysmal atrial fibrillation -hold warfarin due to acute anemia. Monitor INR. He does have a home INR monitor and has been therapeutic at home.
History of ulcerative colitis -patient states it is in remission. Not currently on treatment. His directory compiler is at the [facility].
History of esophagitis -on omeprazole twice daily at home. Pantoprazole is listed as a allergy, reportedly anaphylaxis. Patient states family will bring in omeprazole today. Because he missed doses of omeprazole in the hospital, he developed
nausea and vomiting yesterday, relieved with antiemetics.
Ideally would minimize use of antiemetics as they interact with both his meds and his underlying disease process including Parkinson's. Discussed with patient in detail, he is to bring omeprazole with him in the future to every hospital visit.
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 Hold warfarin as above.
Chronic lower extremity venous stasis dermatitis -suspect due to history of DVTs. He does use compression stockings at home but will use Gerry wraps for compression moving forward. Discussed with patient.
Essential hypertension -stable.
Hyperlipidemia -atorvastatin.
Parkinson's disease -Sinemet.
Hx cerebral palsy -with chronic right upper extremity numbness due to injury.
Hx seizures
Morbid obesity due to excess calories -outpatient sleep apnea testing if not already done.
Full code
I spent a total of 53 minutes with the patient or on the floor. More than 50% of this time involved counseling and coordination of care.
Anticipated Discharge: 24 - 48 hours
Subjective/Interval History
-
Date of Service: September 22, 2024
denies pain
Objective Data
-
Labs:
Laboratory Results
09/22/24 09/22/24
05:54 11:58
WBC 6.7
Hgb 7.5 L Pending
Hct 27.1 L Pending
Plt Count 216
PT 16.0 H
INR 1.22
APTT 89.1 H Pending
Sodium 134 L
Potassium 3.7
Chloride 104
Carbon Dioxide 26
BUN 18
Creatinine 1.0
Glucose 92
Calcium 8.9
Vital Signs:
Vital Signs
Temp Pulse Resp BP Pulse Ox
98.2 F 64 17 119/58 98
09/22/24 11:23 09/22/24 11:23 09/22/24 11:23 09/22/24 11:23 09/22/24 11:23
I&O
09/21/24 09/22/24 09/23/24
06:59 06:59 06:59
Intake Total 480 / 480 1680 / 1680
Output Total 1200 / 1200 2049
Balance -720 / -720 -370 / -370
[2024-09-22 12:12] LABS: Hematocrit 30.7 % (39.0-52.0); Hemoglobin 8.6 g/dL (13.0-18.0)
[2024-09-22 12:23] LABS: APTT 79.9 Sec (23.4-35.0)
[2024-09-22] MEDS: HEPARIN 25000 UNITS/250 ML IV (15:27)
[2024-09-22] MEDS: COUMADIN 4 MG PO (17:14)
[2024-09-22] MEDS: LIPITOR 80 MG PO (20:52)
[2024-09-23] MEDS: ANCEF 5 IV ×3 (00:44→15:34)
[2024-09-23 03:21] VITALS: BP 122/60
[2024-09-23 06:00] VITALS: BMI 41.4
[2024-09-23 06:12] LABS: INR 1.32; PT 16.9 Sec (11.4-14.6)
[2024-09-23 06:14] LABS: APTT 114.5 Sec (23.4-35.0)
[2024-09-23] MEDS: HEPARIN 25000 UNITS/250 ML IV (06:14)
[2024-09-23 06:25] LABS: Hematocrit 26.9 % (39.0-52.0); Hemoglobin 7.4 g/dL (13.0-18.0); Mean Corp Hgb Conc. 27.5 g/dL (33.0-37.0); Mean Corpuscular Volume 74.9 fL (80.0-94.0); Nucleated Red Blood Cells % 0 % (-); Platelet Count 204 10^3/uL (130-400); Red Cell Dist. Width 23.9 % (11.5-14.5)
[2024-09-23 06:26] LABS: Blood Urea Nitrogen 18 mg/dl (9-20); Calcium 8.2 mg/dl (8.4-10.2); Carbon Dioxide 26 mmol/L (22-30); Chloride 105 mmol/L (98-107); Estimated Creatinine Clearance 79 ml/min; Glucose 86 mg/dl (70-99); Potassium 3.6 mmol/L (3.5-5.1); Sodium 137 mmol/L (135-145); eGFR > 60.00
[2024-09-23] MEDS: BETAPACE 120 MG PO ×2 (08:37→20:47)
[2024-09-23] MEDS: NEURONTIN 200 MG PO ×3 (08:37→20:48)
[2024-09-23] MEDS: LASIX 40 MG IV (08:38)
[2024-09-23] MEDS: VITAMIN B-12 1000 MCG PO (08:38)
[2024-09-23] MEDS: SINEMET 25-100 1.5 TABLET PO ×3 (08:38→20:45)
[2024-09-23] MEDS: DESENEX/MITRAZOL/ZEASORB 1 APPLIC TOPICAL ×2 (08:39→20:51)
[2024-09-23 08:43] VITALS: BP 131/66
[2024-09-23 11:51] VITALS: BP 105/60
--- NOTE | 2024-09-23 12:00 | W.PN.HOSP.TC ---
Today's Communication/Plan
-
monitor vitals
see plan
monitor hgb
monitor for bleeding
cw hep gtt; cw coumadin
hopeful dc over the weekend pending improvement
Assessment / Plan
Assessment / Plan
Gen-AAOx3, NAD
HEENT-NC, AT, anicteric, clear oral mm
Neck-supple
CV-reg, no M, +S1/S2
Lungs-clear B/L
Abd-soft, NT, ND
Ext-right greater than left lower extremity edema, bilateral lower extremity hyperpigmentation below knees
Musculoskeletal-no cyanosis
Neuro-grossly non-focal
Psych-calm, cooperative
Acute right lower extremity cellulitis -primarily involving the right thigh. Continue IV cefazolin. dc after today. Suspect trigger is venous stasis dermatitis, poor circulation as a result of prior DVTs.
Doppler ultrasound of bilateral lower extremities negative for DVT on admission.
Erythema improving
Symptomatic acute on chronic anemia -no evidence of bleeding. Heme-negative stool on admission. Patient denies melena or hematochezia.
Coumadin as all blood thinners could be contributing to his anemia
Microcytic anemia. Low iron and low ferritin levels noted but TIBC in the normal range.
Suspect some degree of chronic iron deficiency anemia, possibly due to underlying ulcerative colitis, and will need GI workup. GI service has been consulted.
Last colonoscopy was March 2021 showing severe ulcerative colitis from rectum to sigmoid, scope was not advanced past the sigmoid colon given severe inflammation. Nonbleeding internal hemorrhoids and one 5 mm polyp at 20 cm proximal to the anus
noted and resected.
Last EGD was March 2021 showing LA grade B esophagitis without bleeding. Erythematous mucosa in the antrum. 6 cm hiatal hernia. Erythematous duodenopathy.
Hemoglobin 6.5 on admission, 7.6 today after 2 unit PRBC. Baseline hemoglobin unknown.
Vitamin B12 level 302, continue oral repletion. Folic acid normal.
INR was 2.2, status post low-dose vitamin K. INR now 1.2. Status post EGD and colonoscopy 09/21. EGD with large hiatal hernia. Colonoscopy with 10 mm polyp in the proximal transverse colon that was removed. Hemorrhoids. Discussed with GI and
they are okay with patient being started back on heparin drip and Coumadin. Continue with Coumadin tonight. lovenox covered
Acute on chronic heart failure with preserved EF -continue IV Lasix. Per patient he was not on torsemide and at home was using furosemide 20 mg daily. Contacted cardiology however no response regarding outpatient diuretic dose. Will likely
discharge him on 40 mg oral daily with close follow-up outpatient with his options trader.
He presented with symptoms of exertional dyspnea for several months, fatigue. Unfortunately he does not know his dry weight. Does not weigh himself regularly.
At home he uses furosemide 20 mg daily. His options trader is located at the [facility].
BNP on admission was 200. Of note, BNP can be suppressed in the setting of acute heart failure and morbid obesity.
Last echocardiogram in our system was from May 2022, LVEF 55 to 60%, mild TR.
Cardiology following, echo 09/19 with EF 55 to 60%, mildly thickened mitral leaflets with trace mitral regurgitation
Paroxysmal atrial fibrillation -hold warfarin due to acute anemia. Monitor INR. He does have a home INR monitor and has been therapeutic at home.
History of ulcerative colitis -patient states it is in remission. Not currently on treatment. His scanning clerk is at the [facility].
History of esophagitis -on omeprazole twice daily at home. Pantoprazole is listed as a allergy, reportedly anaphylaxis. Patient states family will bring in omeprazole today. Because he missed doses of omeprazole in the hospital, he developed
nausea and vomiting yesterday, relieved with antiemetics.
Ideally would minimize use of antiemetics as they interact with both his meds and his underlying disease process including Parkinson's. Discussed with patient in detail, he is to bring omeprazole with him in the future to every hospital visit.
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 Hold warfarin as above.
Chronic lower extremity venous stasis dermatitis -suspect due to history of DVTs. He does use compression stockings at home but will use Gerry wraps for compression moving forward. Discussed with patient.
Essential hypertension -stable.
Hyperlipidemia -atorvastatin.
Parkinson's disease -Sinemet.
Hx cerebral palsy -with chronic right upper extremity numbness due to injury.
Hx seizures
Morbid obesity due to excess calories -outpatient sleep apnea testing if not already done.
Full code
I spent a total of 52 minutes with the patient or on the floor. More than 50% of this time involved counseling and coordination of care.
Anticipated Discharge: Within 24 hours
Subjective/Interval History
-
Date of Service: September 23, 2024
Denies pain
Objective Data
-
Labs:
Laboratory Results
09/23/24 09/23/24
05:20 13:00
WBC 5.4
Hgb 7.4 L
Hct 26.9 L
Plt Count 204
PT 16.9 H
INR 1.32
APTT 114.5 H Pending
Sodium 137
Potassium 3.6
Chloride 105
Carbon Dioxide 26
BUN 18
Creatinine 1.0
Glucose 86
Calcium 8.2 L
Vital Signs:
Vital Signs
Temp Pulse Resp BP Pulse Ox
98.0 F 54 15 105/60 97
09/23/24 11:51 09/23/24 11:51 09/23/24 11:51 09/23/24 11:51 09/23/24 11:51
I&O
09/22/24 09/23/24 09/24/24
06:59 06:59 06:59
Intake Total 1680 / 1680 840 / 840 480 / 480
Output Total 2049 / 2049 800 / 800 700 / 700
Balance -370 / -370 40 / 40 -220 / -220
[2024-09-23 13:18] LABS: APTT 96.1 Sec (23.4-35.0)
[2024-09-23 15:48] VITALS: BP 115/65
[2024-09-23] MEDS: COUMADIN 5 MG PO (17:02)
[2024-09-23 19:32] LABS: APTT 74.4 Sec (23.4-35.0)
[2024-09-23] MEDS: LIPITOR 80 MG PO (20:46)
[2024-09-23] MEDS: NON-FORMULARY ITEM 1 UNIT PO (20:51)
[2024-09-23 23:48] VITALS: BP 129/62
[2024-09-24] VITALS (7 sets, daily range): BP systolic 103–149; BP diastolic 56–86; PULSE 62; O2SAT 100; BMI 41.3
[2024-09-24] MEDS: ANCEF 5 IV ×2 (01:00→09:20)
[2024-09-24] MEDS: HEPARIN 25000 UNITS/250 ML IV ×2 (01:02→19:49)
[2024-09-24 09:06] LABS: Hematocrit 27.9 % (39.0-52.0); Hemoglobin 7.6 g/dL (13.0-18.0); INR 1.65; Mean Corp Hgb Conc. 27.2 g/dL (33.0-37.0); Mean Corpuscular Volume 73.6 fL (80.0-94.0); Nucleated Red Blood Cells % 0 % (-); PT 19.7 Sec (11.4-14.6); Platelet Count 209 10^3/uL (130-400); Red Cell Dist. Width 24.0 % (11.5-14.5)
[2024-09-24 09:08] LABS: APTT 106.4 Sec (23.4-35.0)
[2024-09-24] MEDS: BETAPACE 120 MG PO ×2 (09:19→21:46)
[2024-09-24] MEDS: SINEMET 25-100 1.5 TABLET PO ×3 (09:19→21:53)
[2024-09-24] MEDS: LASIX 40 MG IV (09:20)
[2024-09-24] MEDS: NEURONTIN 200 MG PO ×3 (09:20→21:46)
[2024-09-24] MEDS: DESENEX/MITRAZOL/ZEASORB 1 APPLIC TOPICAL ×2 (09:57→21:55)
[2024-09-24 09:59] LABS: Blood Urea Nitrogen 16 mg/dl (9-20); Calcium 8.7 mg/dl (8.4-10.2); Carbon Dioxide 24 mmol/L (22-30); Chloride 105 mmol/L (98-107); Estimated Creatinine Clearance 88 ml/min; Glucose 157 mg/dl (70-99); Potassium 3.3 mmol/L (3.5-5.1); Sodium 136 mmol/L (135-145); eGFR > 60.00
[2024-09-24] MEDS: VITAMIN B-12 1000 MCG PO (10:41)
--- NOTE | 2024-09-24 11:17 | W.PN.HOSP.TC ---
Today's Communication/Plan
-
monitor vitals
see plan
monitor INR
cw hep
coumadin 4mg tonite
check orthos
PT
Assessment / Plan
Assessment / Plan
Gen-AAOx3, NAD
HEENT-NC, AT, anicteric, clear oral mm
Neck-supple
CV-reg, no M, +S1/S2
Lungs-clear B/L
Abd-soft, NT, ND
Ext-right greater than left lower extremity edema, bilateral lower extremity hyperpigmentation below knees
Musculoskeletal-no cyanosis
Neuro-grossly non-focal
Psych-calm, cooperative
Acute right lower extremity cellulitis -primarily involving the right thigh. Finished antibiotic. Suspect trigger is venous stasis dermatitis, poor circulation as a result of prior DVTs.
Doppler ultrasound of bilateral lower extremities negative for DVT on admission.
Erythema improving
Symptomatic acute on chronic anemia -no evidence of bleeding. Heme-negative stool on admission. Patient denies melena or hematochezia.
Coumadin as all blood thinners could be contributing to his anemia
Microcytic anemia. Low iron and low ferritin levels noted but TIBC in the normal range.
Suspect some degree of chronic iron deficiency anemia, possibly due to underlying ulcerative colitis, and will need GI workup. GI service has been consulted.
Last colonoscopy was March 2021 showing severe ulcerative colitis from rectum to sigmoid, scope was not advanced past the sigmoid colon given severe inflammation. Nonbleeding internal hemorrhoids and one 5 mm polyp at 20 cm proximal to the anus
noted and resected.
Last EGD was March 2021 showing LA grade B esophagitis without bleeding. Erythematous mucosa in the antrum. 6 cm hiatal hernia. Erythematous duodenopathy.
Hemoglobin 6.5 on admission, 7.6 today
Vitamin B12 level 302, continue oral repletion. Folic acid normal.
INR was 2.2, status post low-dose vitamin K. INR now 1.6. Status post EGD and colonoscopy 09/21. EGD with large hiatal hernia. Colonoscopy with 10 mm polyp in the proximal transverse colon that was removed. Hemorrhoids. Discussed with GI and
they are okay with patient being started back on heparin drip and Coumadin. Continue with Coumadin tonight 4mg.
Acute on chronic heart failure with preserved EF -continue IV Lasix. Per patient he was not on torsemide and at home was using furosemide 20 mg daily. Contacted cardiology however no response regarding outpatient diuretic dose. Will likely
discharge him on 40 mg oral daily with close follow-up outpatient with his machinist wood.
He presented with symptoms of exertional dyspnea for several months, fatigue. Unfortunately he does not know his dry weight. Does not weigh himself regularly.
At home he uses furosemide 20 mg daily. His machinist wood is located at the [facility].
BNP on admission was 200. Of note, BNP can be suppressed in the setting of acute heart failure and morbid obesity.
Last echocardiogram in our system was from May 2022, LVEF 55 to 60%, mild TR.
Cardiology following, echo 09/19 with EF 55 to 60%, mildly thickened mitral leaflets with trace mitral regurgitation
Complaining of dizziness, check orthostatics
Paroxysmal atrial fibrillation -hold warfarin due to acute anemia. Monitor INR. He does have a home INR monitor and has been therapeutic at home.
History of ulcerative colitis -patient states it is in remission. Not currently on treatment. His finishing machine operator is at the [facility].
History of esophagitis -on omeprazole twice daily at home. Pantoprazole is listed as a allergy, reportedly anaphylaxis. Brought home omeprazole, continue. Because he missed doses of omeprazole in the hospital, he developed nausea and vomiting
yesterday, relieved with antiemetics.
Ideally would minimize use of antiemetics as they interact with both his meds and his underlying disease process including Parkinson's. Discussed with patient in detail, he is to bring omeprazole with him in the future to every hospital visit.
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 Hold warfarin as above.
Chronic lower extremity venous stasis dermatitis -suspect due to history of DVTs. He does use compression stockings at home but will use Gerry wraps for compression moving forward. Discussed with patient.
Essential hypertension -stable.
Hyperlipidemia -atorvastatin.
Parkinson's disease -Sinemet.
Hx cerebral palsy -with chronic right upper extremity numbness due to injury.
Hx seizures
Morbid obesity due to excess calories -outpatient sleep apnea testing if not already done.
Full code
I spent a total of 51 minutes with the patient or on the floor. More than 50% of this time involved counseling and coordination of care.
Anticipated Discharge: Within 24 hours
Subjective/Interval History
-
Date of Service: September 24, 2024
has dizziness
Objective Data
-
Labs:
Laboratory Results
09/24/24
08:51
WBC 5.1
Hgb 7.6 L
Hct 27.9 L
Plt Count 209
PT 19.7 H
INR 1.65
APTT 106.4 H
Sodium 136
Potassium 3.3 L
Chloride 105
Carbon Dioxide 24
BUN 16
Creatinine 0.9
Glucose 157 H
Calcium 8.7
Vital Signs:
Vital Signs
Temp Pulse Resp BP Pulse Ox
98.7 F 59 22 139/73 96
09/24/24 09:27 09/24/24 09:27 09/24/24 09:27 09/24/24 09:27 09/24/24 09:27
I&O
09/23/24 09/24/24 09/25/24
06:59 06:59 06:59
Intake Total 840 / 840 1260 / 1260
Output Total 800 / 800 2310 / 2310
Balance 40 / 40 -1050 / -1050
[2024-09-24] MEDS: KCL 40 MEQ PO (12:00)
[2024-09-24] MEDS: COUMADIN 4 MG PO (17:20)
[2024-09-24] MEDS: LIPITOR 80 MG PO (21:46)
[2024-09-24] MEDS: NON-FORMULARY ITEM 1 UNIT PO (21:47)
[2024-09-24] MEDS: MELATONIN 5 MG PO (23:44)
[2024-09-25 03:00] VITALS: BP 120/66
[2024-09-25 05:58] LABS: Hematocrit 27.3 % (39.0-52.0); Hemoglobin 7.6 g/dL (13.0-18.0); Mean Corp Hgb Conc. 27.8 g/dL (33.0-37.0); Mean Corpuscular Volume 74.0 fL (80.0-94.0); Nucleated Red Blood Cells % 0 % (-); Platelet Count 210 10^3/uL (130-400); Red Cell Dist. Width 23.7 % (11.5-14.5)
[2024-09-25 06:00] VITALS: BMI 41.5
[2024-09-25 06:06] LABS: INR 2.07; PT 23.5 Sec (11.4-14.6)
[2024-09-25 06:14] LABS: Blood Urea Nitrogen 20 mg/dl (9-20); Calcium 8.6 mg/dl (8.4-10.2); Carbon Dioxide 27 mmol/L (22-30); Chloride 105 mmol/L (98-107); Estimated Creatinine Clearance 88 ml/min; Glucose 86 mg/dl (70-99); Potassium 3.9 mmol/L (3.5-5.1); Sodium 136 mmol/L (135-145); eGFR > 60.00
[2024-09-25 08:28] VITALS: BP 123/66
[2024-09-25] MEDS: NEURONTIN 200 MG PO ×2 (08:39→18:15)
[2024-09-25] MEDS: SINEMET 25-100 1.5 TABLET PO ×2 (08:39→18:18)
[2024-09-25] MEDS: BETAPACE 120 MG PO (08:39)
[2024-09-25] MEDS: LASIX 40 MG IV (08:40)
[2024-09-25] MEDS: VITAMIN B-12 1000 MCG PO (08:40)
[2024-09-25] MEDS: DESENEX/MITRAZOL/ZEASORB 1 APPLIC TOPICAL (08:47)
--- NOTE | 2024-09-25 09:31 | W.PN.HOSP.TC ---
Addendum entered and electronically signed by Todd Lua MD 09/25/24 13:17:
Notified by nurse that patient is appealing discharge. Patient at this time is discharge appropriate.
Original Note:
Today's Communication/Plan
-
Monitor vital signs see plan
Transition to p.o. Lasix
Finished antibiotic for cellulitis
INR 2, DC further heparin
Continue with usual Coumadin dose on discharge
Patient to follow-up with his PCP soon outpatient
Time of discharge 39 minutes
Assessment / Plan
Assessment / Plan
Gen-AAOx3, NAD
HEENT-NC, AT, anicteric, clear oral mm
Neck-supple
CV-reg, no M, +S1/S2
Lungs-clear B/L
Abd-soft, NT, ND
Ext-right greater than left lower extremity edema, bilateral lower extremity hyperpigmentation below knees
Musculoskeletal-no cyanosis
Neuro-grossly non-focal
Psych-calm, cooperative
Acute right lower extremity cellulitis -primarily involving the right thigh. Finished antibiotic. Suspect trigger is venous stasis dermatitis, poor circulation as a result of prior DVTs.
Doppler ultrasound of bilateral lower extremities negative for DVT on admission.
Erythema improving
Symptomatic acute on chronic anemia -no evidence of bleeding. Heme-negative stool on admission. Patient denies melena or hematochezia.
Coumadin as all blood thinners could be contributing to his anemia
Microcytic anemia. Low iron and low ferritin levels noted but TIBC in the normal range.
Suspect some degree of chronic iron deficiency anemia, possibly due to underlying ulcerative colitis, and will need GI workup. GI service has been consulted.
Last colonoscopy was March 2021 showing severe ulcerative colitis from rectum to sigmoid, scope was not advanced past the sigmoid colon given severe inflammation. Nonbleeding internal hemorrhoids and one 5 mm polyp at 20 cm proximal to the anus
noted and resected.
Last EGD was March 2021 showing LA grade B esophagitis without bleeding. Erythematous mucosa in the antrum. 6 cm hiatal hernia. Erythematous duodenopathy.
Hemoglobin 6.5 on admission, 7.6 today
Vitamin B12 level 302, continue oral repletion. Folic acid normal.
INR was 2.2, status post low-dose vitamin K. INR now 2. DC further heparin drip. status post EGD and colonoscopy 09/21. EGD with large hiatal hernia. Colonoscopy with 10 mm polyp in the proximal transverse colon that was removed. Hemorrhoids.
Continue with usual Coumadin dosing on discharge
Acute on chronic heart failure with preserved EF -continue IV Lasix. Per patient he was not on torsemide and at home was using furosemide 20 mg daily. Contacted cardiology however no response regarding outpatient diuretic dose. Will likely
discharge him on 40 mg oral daily with close follow-up outpatient with his mds coordinator.
He presented with symptoms of exertional dyspnea for several months, fatigue. Unfortunately he does not know his dry weight. Does not weigh himself regularly.
At home he uses furosemide 20 mg daily. His mds coordinator is located at the [facility].
BNP on admission was 200. Of note, BNP can be suppressed in the setting of acute heart failure and morbid obesity.
Last echocardiogram in our system was from May 2022, LVEF 55 to 60%, mild TR.
Cardiology following, echo 09/19 with EF 55 to 60%, mildly thickened mitral leaflets with trace mitral regurgitation
Complaining of dizziness, check orthostatics
Paroxysmal atrial fibrillation -hold warfarin due to acute anemia. Monitor INR. He does have a home INR monitor and has been therapeutic at home.
History of ulcerative colitis -patient states it is in remission. Not currently on treatment. His event marketing coordinator is at the [facility].
History of esophagitis -on omeprazole twice daily at home. Pantoprazole is listed as a allergy, reportedly anaphylaxis. Brought home omeprazole, continue. Because he missed doses of omeprazole in the hospital, he developed nausea and vomiting
yesterday, relieved with antiemetics.
Ideally would minimize use of antiemetics as they interact with both his meds and his underlying disease process including Parkinson's. Discussed with patient in detail, he is to bring omeprazole with him in the future to every hospital visit.
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 Hold warfarin as above.
Chronic lower extremity venous stasis dermatitis -suspect due to history of DVTs. He does use compression stockings at home but will use Gerry wraps for compression moving forward. Discussed with patient.
Essential hypertension -stable.
Hyperlipidemia -atorvastatin.
Parkinson's disease -Sinemet.
Hx cerebral palsy -with chronic right upper extremity numbness due to injury.
Hx seizures
Morbid obesity due to excess calories -outpatient sleep apnea testing if not already done.
Full code
Anticipated Discharge: Today
Subjective/Interval History
-
Date of Service: September 25, 2024
Denies pain
Objective Data
-
Labs:
Laboratory Results
09/25/24
05:27
WBC 6.0
Hgb 7.6 L
Hct 27.3 L
Plt Count 210
PT 23.5 H
INR 2.07
Sodium 136
Potassium 3.9
Chloride 105
Carbon Dioxide 27
BUN 20
Creatinine 0.9
Glucose 86
Calcium 8.6
Vital Signs:
Vital Signs
Temp Pulse Resp BP Pulse Ox
98.1 F 57 21 123/66 96
09/25/24 08:28 09/25/24 08:28 09/25/24 08:28 09/25/24 08:28 09/25/24 08:28
I&O
09/24/24 09/25/24 09/26/24
06:59 06:59 06:59
Intake Total 1260 / 1260 960 / 960
Output Total 2310 / 2310 900 / 900
Balance -1050 / -1050 60 / 60
--- NOTE | 2024-09-25 09:35 | W.DCSUMMARY ---
Discharge Summary
Discharge Data
Date of Admission: 09/16/24
Date of Discharge: 09/25/24
-
Pending Results: Yes
Hospital Course
69-year-old male with past medical history of anemia, venous insufficiency, CHF, proximal atrial fibrillation, history of ulcerative colitis, esophagitis, DVT status post IVC filter, history of Eliquis and Xarelto failure on Coumadin, essential
hypertension, hyperlipidemia, Parkinson disease, history of cerebral palsy, history of seizure, morbid obesity came to the hospital with acute right lower extremity cellulitis which was treated with antibiotics. Patient finished antibiotics prior
to the discharge. On this hospitalization he also had symptomatic acute on chronic anemia for which he was seen by GI and was taken for EGD and colonoscopy. EGD showed large hiatal hernia. Colonoscopy was consistent with 10 mm polyp in the
proximal transverse colon that was removed. Patient instructed to follow-up with GI outpatient. On this hospitalization patient also had acute on chronic congestive heart failure exacerbation which was treated with IV Lasix. On discharge his
Lasix was increased to 40 mg daily and he was instructed to follow-up with his grocery store associate closely outpatient. He was also instructed to get BMP outpatient. Once patient's symptoms continue to improve and his INR was therapeutic, he was then
discharged home with instructions to follow-up with all his physicians outpatient.
Discharge Plan
-
Patient Disposition: Home with Home Care
Discharge Diagnosis/Procedures: Acute right lower extremity cellulitis
Acute on chronic anemia
Acute on chronic congestive heart failure with preserved ejection fraction
Paroxysmal atrial fibrillation
History of ulcerative colitis
Condition: Fair
Diet: As tolerated
Activity: As tolerated
Driving Restrictions: As prior to admission
Bathing Restrictions: None
Blood Work: CBC and BMP next week with primary care provider
Activity Restrictions/Additional Instructions:
Follow-up with your grocery store associate outpatient
Start Lasix 40 mg p.o. daily starting tomorrow 09/26
Referrals:
Сергей Gordillo MD [Active, Gastroenterology]
NONE,* [Family Provider, Internal Medicine] - in less than 1 week
Natasha Barrientos MD [Active, Cardiology]
Prescriptions:
New
cyanocobalamin (vitamin B-12) [Vitamin B-12] 1,000 mcg Tablet
1,000 mcg PO DAILY Qty: 30 0RF
miconazole nitrate [Miconazorb AF] 2 % Powder
1 applic topical BID Qty: 85 0RF
furosemide [Lasix] 40 mg tablet
40 mg PO DAILY Qty: 30 0RF
Continued
gabapentin 100 MG capsule
200 mg PO TID
diphenhydramine HCl [Benadryl] 25 mg Capsule
25 mg PO DAILY PRN (Reason: allergies)
carbidopa-levodopa 25-100 mg Tablet
1.5 tab PO TID
atorvastatin [Lipitor] 80 mg Tablet
80 mg PO HS
acetaminophen 325 mg tablet
650 mg PO Q4HPRN PRN (Reason: mild pain) Qty: 1 0RF
omeprazole 40 mg Capsule,Delayed Release(Dr/Ec)
40 mg PO HS
sotalol 120 MG tablet
120 mg PO Q12H
ammonium lactate 12 % Lotion
1 applic topical BID Qty: 225 0RF
Rx Instructions:
apply to legs
warfarin 3 mg Tablet
3 mg PO SUMOTUWETHSA
warfarin 3 mg Tablet
4.5 mg PO FR
Discontinued
torsemide 20 mg tablet
10 mg PO DAILY
enoxaparin 120 mg/0.8 mL Syringe
110 mg SC Q12 Qty: 8 6RF
Rx Instructions:
Dispense enough for a 1 month
Discharge Orders:
Discharge Patient (As Directed); Ordered 09/25/24
Ordered By: Todd Lua
Discharge Date and Time
Discharge Date/Time: 09/25/24 18:44
Print Language: [place]
[2024-09-25 12:17] VITALS: BP 110/59
--- NOTE | 2024-09-25 13:07 | CM ---
Pt cleared for discharge today. IMM signed; pt anticipates appealing his discharge. RN and MD aware that appeal is likely. TT sent to Ita Pérez and Olga Singer to make them aware of probable appeal.
[2024-09-25 16:14] VITALS: BP 109/72
== END 2024-09-25 18:44 | disposition home or self-care (01) | DRG 299 ==
LOC: 3 WEST ACU 23:51
PROVIDERS: Hospitalist; Internal Medicine; Nurse Practitioner Family; Physician Assistant; Student in an Organized Health Care Education/Training Program; ADMITTING PHYSICIAN Hospitalist; ATTENDING PHYSICIAN Internal Medicine; CONSULT PHYSICIAN Internal Medicine Cardiovascular Disease; CONSULT PHYSICIAN Internal Medicine Gastroenterology; EMERGENCY PHYSICIAN Emergency Medicine
PROC: 30233N1 Transfusion of Nonautologous Red Blood Cells into Peripheral Vein, Percutaneous Approach (ICD-10-PCS; 2024-09-16)
PROC: 0DB98ZX Excision of Duodenum, Via Natural or Artificial Opening Endoscopic, Diagnostic (ICD-10-PCS; 2024-09-21)
PROC: 3E0H8KZ Introduction of Other Diagnostic Substance into Lower GI, Via Natural or Artificial Opening Endoscopic (ICD-10-PCS; 2024-09-21)
PROC: 0DBL8ZX Excision of Transverse Colon, Via Natural or Artificial Opening Endoscopic, Diagnostic (ICD-10-PCS; 2024-09-21)
PROC: 0DB68ZX Excision of Stomach, Via Natural or Artificial Opening Endoscopic, Diagnostic (ICD-10-PCS; 2024-09-21)
DX: I83.11 Varicose veins of right lower extremity with inflammation (principal); I50.33 Acute on chronic diastolic (congestive) heart failure; K21.01 Gastro-esophageal reflux disease with esophagitis, with bleeding; I69.351 Hemiplegia and hemiparesis following cerebral infarction affecting right dominant side; L03.115 Cellulitis of right lower limb; Z68.41 Body mass index [BMI] 40.0-44.9, adult; D50.9 Iron deficiency anemia, unspecified; G80.9 Cerebral palsy, unspecified; E78.00 Pure hypercholesterolemia, unspecified; G20.A1 Parkinson's disease without dyskinesia, without mention of fluctuations; I11.0 Hypertensive heart disease with heart failure; I25.10 Atherosclerotic heart disease of native coronary artery without angina pectoris; I50.82 Biventricular heart failure; M48.02 Spinal stenosis, cervical region; K64.8 Other hemorrhoids; K57.30 Diverticulosis of large intestine without perforation or abscess without bleeding; K31.89 Other diseases of stomach and duodenum; K44.9 Diaphragmatic hernia without obstruction or gangrene; I87.8 Other specified disorders of veins; E66.01 Morbid (severe) obesity due to excess calories; D12.3 Benign neoplasm of transverse colon; N50.89 Other specified disorders of the male genital organs; I48.0 Paroxysmal atrial fibrillation; Z87.891 Personal history of nicotine dependence; Z79.01 Long term (current) use of anticoagulants; Z86.718 Personal history of other venous thrombosis and embolism; Z91.199 Patient's noncompliance with other medical treatment and regimen due to unspecified reason; Z88.8 Allergy status to other drugs, medicaments and biological substances; Z91.040 Latex allergy status; Z91.010 Allergy to peanuts
CPT/HCPCS: 36430; 71046; 80048; 80053; 81003; 82607; 82728; 82746; 83540; 83550; 83880; 84484; 85014; 85018; 85025; 85027; 85610; 85730; 86850; 86900; 86901; 86920; 88305; 88342; 93005; 93306; 93970; 97116; 97163; 97167; 97530; 99285; P9016

== ENCOUNTER 2024-10-19 08:37 | Inpatient (IN) | payer OTHER, SELFPAY ==
[2024-10-17 11:54] VITALS: BP 168/100
[2024-10-17 12:33] LABS: Hematocrit 30.1 % (39.0-52.0); Hemoglobin 8.2 g/dL (13.0-18.0); Mean Corp Hgb Conc. 27.2 g/dL (33.0-37.0); Mean Corpuscular Volume 72.7 fL (80.0-94.0); Nucleated Red Blood Cells % 0 % (-); Platelet Count 315 10^3/uL (130-400); Red Cell Dist. Width 21.9 % (11.5-14.5)
[2024-10-17 12:36] LABS: ALT (SGPT) 13 U/L (0-50); AST (SGOT) 21 U/L (17-59); Albumin 4.6 g/dl (3.5-5.0); Alkaline Phosphatase 78 U/L (38-126); Calcium 9.3 mg/dl (8.4-10.2); Carbon Dioxide 22 mmol/L (22-30); Chloride 106 mmol/L (98-107); Glucose 105 mg/dl (70-99); Potassium 4.8 mmol/L (3.5-5.1); Sodium 138 mmol/L (135-145); Total Protein 8.9 g/dl (6.3-8.2)
[2024-10-17 12:46] LABS: Troponin I < 0.012 ng/ml
[2024-10-17 12:48] LABS: Blood Urea Nitrogen 19 mg/dl (9-20); eGFR > 60.00
[2024-10-17 13:38] LABS: Anisocytosis 2+; Hypochromasia 2+; Macrocytosis 1+; Normal RBC Morphology No; Ovalocytes 1+; Polychromasia Slight
[2024-10-17 13:49] LABS: INR 2.25; PT 25.0 Sec (11.4-14.6)
--- NOTE | 2024-10-17 14:06 | ED.GENMED ---
History of Present Illness
<STACY Collins Jr. Last Filed: 10/19/24 23:08>
General
Chief Complaint: Swelling
Source: patient
Exam Limitations: none
Time Seen by Provider: 10/17/24 12:56
Nursing documentation reviewed up to this point in time: agreed with
History of Present Illness
History of Present Illness:
69-year-old male past ministry of PE currently on Coumadin also history of A-fib previous stroke Parkinson's hypertension hyperlipidemia presenting to the emergency department today with concerns of worsening swelling to the left lower extremity
over the past week or so has had some degree of swelling for many years. Left side is significantly worse than the right at this point he denies specific shortness of breath chest pain nausea vomiting or fevers.
Past History
<STACY Collins Jr. Last Filed: 10/19/24 23:08>
Past History
ED Past Medical History: Arrthythmia (Atrial fib), CHF, CVA (paranasal stroke, right parietal ischemic stroke 2014, weakness right and left side), HTN, Hypercholesterolemia, Seizures and Other (parkinsons, Ulcerative Colitis, H-pylory, Hiatel
hernia, Abd hernias, DVT, GI bleeding,Headaches)
ED Past Surgical History: Other (IVC filter, Foot surgery)
Patient has exhibited threatening behavior?: No
PSI?: No
Social History
Tobacco: Former smoker
Alcohol: None
Drug: None
Personal: Single
Living: with family
Family History
Family History: Other (reviewed and noncontributory)
Review of Systems
<STACY Collins Jr. Last Filed: 10/19/24 23:08>
Review of Systems
Allergies reviewed?: Yes
All Other Systems: ROS reviewed and negative except as documented in HPI and ROS
Phy Exam
<STACY Collins Jr. Last Filed: 10/19/24 23:08>
Physical Exam
Physical Exam:
GENERAL: Alert , in no apparent distress
EYE: pupils equal and reactive
NECK: Supple, no significant adenopathy.
ENT: o/p clr, mmm.
CARDIAC: Regular rate and rhythm .
LUNGS: Clear breath sounds bilaterally, no acute respiratory distress, no wheezes/rales/rhonchi
ABDOMEN: Soft, without focal tenderness, no r/g, no cvat
NEUROLOGICAL: Alert and oriented, no focal neuro deficits
SKIN: Warm and dry, skin intact.
MUSCULOSKELETAL: well perfused.
PSYCH: Normal and appropriate interaction.
+3 pitting edema to the left lower extremity up to the proximal thigh
Scores
<FABIO Oleary - Last Filed: 10/17/24 19:39>
Heart Failure Risk
Heart Failure Risk Score: Not Applicable
Course
<FABIO Collins Jr. - Last Filed: 10/19/24 23:08>
Orders/Labs/Results
Orders:
Orders
10/17/24 11:58
Electrocardiogram (*1) Urgent
Reason for Study: Other
Other Reason for Exam: lower extremity swelling
EKG- Treatment ONCE
10/17/24 12:06
Complete Blood Count/With Diff Urgent
Comprehensive Metabolic Panel Urgent
NT-proBNP Urgent
Troponin I Urgent
10/17/24 13:15
Venous Doppler Lwr Ext Left [US Periph Venous LOWER Ext LT] Urgent
Comment:
Reason For Exam: keft leg swelling
10/17/24 13:32
PT/INR [Prothrombin Time] Urgent
10/17/24 14:07
Chest [CR Chest - 2 Views ] Urgent
Comment:
Reason For Exam: sob
09/08/25 Dinner
Regular
At Your Request: Full Participation
Does patient need a safe tray?: No
10/17/24 15:05
CT Abd/Pel (IV only)-[facility] only Urgent
Comment:
Reason For Exam: CT VENOGRAM abdnormal US
10/17/24 18:26
0.9% Sodium Chloride 500 ml [Nss] 500 ml IV BOLUS
10/17/24 19:31
Admit/Transfer Patient As Directed
Co-Sign Provider:
Level of Care: Observation services
Assign to:: Medical/Surgical
Physician / Group: Julissa Arredondo
Diagnosis: LLE edema
PRN Pain Medication Management As Directed
May give lesser potent ordered pain med per pt: Yes
preference::
Protocol:: Medication orders for pain may be administered in a
manner that supports deferring to patient preference
when the pt is:
- Requesting an ordered lesser potent pain medication.
Least to most potent pain medications are defined
as: acetaminophen < NSAID < tramadol < opioids
(morphine, oxycodone, hydromorphone).
- Requesting a lesser dose of the same medication IF
ORDERED.
- Requesting a less intrusive route of administration
if both routes are prescribed by the provider (PO <
IV).
10/17/24 19:32
Code Status As Directed
Resuscitation Status: Full Code
10/17/24 21:14
Acetaminophen [Tylenol] 650 mg PO Q4HPRN PRN
10/17/24 21:14
Vascular Surgery Consult Routine
Consulting Provider: Anjel Diez III
Was physician already notified: Yes
Activity As Directed
Activity Level: As Tolerated
Bladder Scan As Directed
Follow Bladder Retention/Intermittent Cath Algorithm?: Yes
PRN if no void in __ hours: 6
Frequency: Per Retention Algorithm
If Bladder Scan Result >: 400
then:: Straight cath
Intake/ Output As Directed
Frequency: Per unit guidelines
Sleep Apnea Assessment by RN As Directed
Comment:
Physician Instructions:
Straight Cath As Directed
Frequency: Per Retention Algorithm
Additional Instructions: straight cath as needed per acute urinary retention algorithm for 24 hrs
Additional Instructions: for bladder scan greater than 400 mL
Vital Signs As Directed
Frequency: Per unit guidelines
Weight As Directed
Frequency: Daily
Type of Scale: Standing Scale
Comment: Daily morning weight. If unable to stand, use balanced bed scale.
Weight As Directed
Frequency: Once
Type of Scale: Standing Scale
Comment: Upon Admission. If unable to stand, use balanced bed scale.
Pulse Ox/cont/shift [RESP] Routine
Quantity: 1
Special Instructions: Daily pulse oximetry at rest. If greater than 92% at rest also obtain pulse oximetry
while ambulating as tolerated.
10/17/24 21:30
Sotalol [Betapace] 120 mg PO Q12
10/17/24 22:00
Atorvastatin [Lipitor] 80 mg PO HS
Carbidopa/Levodopa [Sinemet 25-100] 1.5 tablet PO TID
Gabapentin [Neurontin] 200 mg PO TID
Pantoprazole [Protonix] 40 mg PO HS
Warfarin [Coumadin] 3 mg PO [id number]
10/17/24 22:54
Case Management Consult ONCE
Case Management Consult: Discharge Planning
Other
Comment: having insurance issues and would like to get info on available resources
Ot Screening Request from Woody Routine
Pt Screening Request from [facility]y Routine
10/17/24 23:00
Miconazole Nitrate [Desenex/Mitrazol/Zeasorb] See Dose Instructions TOPICAL BID
10/17/24 23:13
Transfer Patient As Directed
Transfer to: Telemetry
Reason for Telemetry: Medication for Arrhythmia
Date to Stop Telemetry: 10/19/24
Time to Stop Telemetry: 11:00
10/17/24 23:[address] Non Medication Order As Directed
Physician Order: nystatin powder
left breast fold B/l groan BID prn
Above order entered?: Yes
10/18/24
HF Check Daily Weights Video Routine
HF Limiting Fluids Video Routine
HF Limiting Sodium Video Routine
HF Recognizing Symptoms Video Routine
HF Taking Medicines Video Routine
HF What is it? Video Routine
10/18/24 Breakfast
NPO
Allow oral meds: Yes
Allow clear liquids: No
10/18/24 07:37
Complete Blood Count/No Diff IN AM
Prothrombin Time IN AM
10/18/24 08:00
Cyanocobalamin [Vitamin B-12] 1,000 mcg PO DAILY
Furosemide [Lasix] 40 mg PO DAILY
10/18/24 08:53
Request for Physical Therapy [NOTICE] Routine
10/18/24 Lunch
Cholesterol Lowering
At Your Request: Full Participation
10/18/24 13:47
0.9% Sodium Chloride 500 ml [Nss] 500 ml IV BOLUS
10/18/24 Dinner
Low Fat
At Your Request: Full Participation
NPO
Allow oral meds: Yes
Allow clear liquids: No
10/18/24 16:11
Request for Occupational Therapy [NOTICE] Routine
10/18/24 17:30
CT Angio Abd/Pelvis w/wo IV [CT Abd/pelvis Angio W/wo Iv] Routine
Comment: eval stent patency, must be after 5:30pm
Reason For Exam: CT VENOGRAM REPEAT
10/18/24 21:46
Heparin Protocol- PTT Orders As Directed
PTT per Heparin protocol: -Obtain CBC and baseline PTT - if not already collected.
-Obtain PTT 6 hours from start of infusion. Then, every 6 hours until 2 consecutive
PTT's are therapeutic. Then, PTT Daily.
-With each rate change, obtain PTT every 6 hours until 2 consecutive PTT's are
therapeutic. Then, PTT Daily.
Notify MD As Directed
Notify physician if: PTT is greater than or equal to 200.
10/18/24 22:00
Heparin 28457 Units/250 ml 25,000 units in 250 ml IV PER PROTOCOL
Weight to be used for heparin protocol in kilograms (kg):: 112.236
Protocol:: DVT/PE
PTT Goal Range to be used:: PTT 73 to 111 seconds
Order type:: Initial
INITIAL Infusion Dose (UNITS/KG/hr) & then follow protocol:: 18 units/kg/hr
Infusion Dose in UNITS/hr & then follow protocol (UNITS/hr):: 2,000
INFUSION RATE in mL/hr & then follow protocol (mL/hr):: 20
For DVT/PE algorithm, re-bolus for low PTT?: No
PTT less than or equal to 64 seconds:: No Re-bolus. Increase by 500 units/hr (+ 5mL/hr)
PTT 64.1 to 72.9 seconds:: No Re-bolus. Increase by 200 units/hr (+ 2mL/hr)
PTT 73 to 111 seconds:: Target Range. No change in rate.
PTT 111.1 to 130.9 seconds:: Decrease rate by 200 units/hr (- 2 mL/hr)
PTT 131 to 199.9 seconds:: HOLD for 1 hr. Then decrease by 400 units/hr (- 4mL/hr)
PTT greater than or equal to 200 seconds:: HOLD for 2 hrs & Notify Provider. Then decrease by 500 units/hr
(- 5mL/hr)
Lab follow-up:: Each change, PTT q6h until 2 consecutive are therapeutic. Then
PTT daily.
10/18/24 22:40
Complete Blood Count/No Diff Urgent
Comment: Obtain baseline before beginning heparin infusion if not already collected
PTT Urgent
Comment: Obtain baseline before beginning heparin infusion if not already collected
10/19/24 05:25
PTT Urgent
Prothrombin Time IN AM
10/19/24 05:26
Complete Blood Count/No Diff IN AM
Comprehensive Metabolic Panel IN AM
10/19/24 Breakfast
NPO
Allow oral meds: Yes
Allow clear liquids: No
10/19/24 11:00
DC Protocol for Telemetry ONCE
10/19/24 14:32
PTT Urgent
10/20/24 06:00
Complete Blood Count/No Diff IN AM
Complete Blood Count/No Diff Q2D
Comment: Notify MD if platelet count is <130,000 or decreases by 50% from baseline
Comprehensive Metabolic Panel IN AM
Prothrombin Time IN AM
10/21/24 06:00
Complete Blood Count/No Diff IN AM
Comprehensive Metabolic Panel IN AM
10/21/24 08:00
Warfarin [Coumadin] 4.5 mg PO FR
10/22/24 06:00
Complete Blood Count/No Diff IN AM
Complete Blood Count/No Diff Q2D
Comment: Notify MD if platelet count is <130,000 or decreases by 50% from baseline
Comprehensive Metabolic Panel IN AM
10/23/24 06:00
Complete Blood Count/No Diff IN AM
Comprehensive Metabolic Panel IN AM
10/24/24 06:00
Complete Blood Count/No Diff Q2D
Comment: Notify MD if platelet count is <130,000 or decreases by 50% from baseline
10/26/24 06:00
Complete Blood Count/No Diff Q2D
Comment: Notify MD if platelet count is <130,000 or decreases by 50% from baseline
10/28/24 06:00
Complete Blood Count/No Diff Q2D
Comment: Notify MD if platelet count is <130,000 or decreases by 50% from baseline
10/30/24 06:00
Complete Blood Count/No Diff Q2D
Comment: Notify MD if platelet count is <130,000 or decreases by 50% from baseline
11/01/24 06:00
Complete Blood Count/No Diff Q2D
Comment: Notify MD if platelet count is <130,000 or decreases by 50% from baseline
11/03/24 06:00
Complete Blood Count/No Diff Q2D
Comment: Notify MD if platelet count is <130,000 or decreases by 50% from baseline
Abnormal Lab Results
10/17/24 10/17/24 10/18/24
12:06 13:32 07:37
RBC 4.14 L 10^6/uL 3.64 L 10^6/uL
(4.70-6.10) (4.70-6.10)
Hgb 8.2 L g/dL 7.3 L g/dL
(13.0-18.0) (13.0-18.0)
Hct 30.1 L % 26.3 L %
(39.0-52.0) (39.0-52.0)
MCV 72.7 L fL 72.3 L fL
(80.0-94.0) (80.0-94.0)
MCH 19.8 L pg 20.1 L pg
(27.0-31.0) (27.0-31.0)
MCHC 27.2 L g/dL 27.8 L g/dL
(33.0-37.0) (33.0-37.0)
RDW 21.9 H % 21.7 H %
(11.5-14.5) (11.5-14.5)
Absolute Lymphs (auto) 1.1 L 10^3/uL
(1.2-3.4)
Lymphocytes % 14.2 L %
(20.5-51.1)
Eosinophils % 6.2 H %
(0-6)
PT 25.0 H Sec 24.9 H Sec
(11.4-14.6) (11.4-14.6)
APTT
Glucose 105 H mg/dl
(70-99)
Total Protein 8.9 H g/dl
(6.3-8.2)
10/18/24 10/19/24 10/19/24
22:40 05:25 05:26
RBC 3.80 L 10^6/uL 3.83 L 10^6/uL
(4.70-6.10) (4.70-6.10)
Hgb 7.5 L g/dL 7.5 L g/dL
(13.0-18.0) (13.0-18.0)
Hct 27.3 L % 27.4 L %
(39.0-52.0) (39.0-52.0)
MCV 71.8 L fL 71.5 L fL
(80.0-94.0) (80.0-94.0)
MCH 19.7 L pg 19.6 L pg
(27.0-31.0) (27.0-31.0)
MCHC 27.5 L g/dL 27.4 L g/dL
(33.0-37.0) (33.0-37.0)
RDW 21.5 H % 21.4 H %
(11.5-14.5) (11.5-14.5)
Absolute Lymphs (auto)
Lymphocytes %
Eosinophils %
PT 28.8 H Sec
(11.4-14.6)
APTT 45.3 H Sec > 200 H* Sec
(23.4-35.0) (23.4-35.0)
Glucose
Total Protein
10/19/24 05:26
10/19/24 05:26
Vital Signs
Initial and Last Documented VS:
Initial Vital Signs
Temp Pulse Resp BP Pulse Ox
98.1 F 110 18 168/100 98
10/17/24 11:54 10/17/24 11:54 10/17/24 11:54 10/17/24 11:54 10/17/24 11:54
Last Documented Vital Signs
Temp Pulse Resp BP Pulse Ox
97.5 F 60 18 113/59 98
10/19/24 19:19 10/19/24 20:40 10/19/24 19:19 10/19/24 20:40 10/19/24 19:19
<Tigre Blandon PA-C - Last Filed: 10/17/24 19:39>
Orders/Labs/Results
Orders:
Orders
10/17/24 11:58
Electrocardiogram (*1) Urgent
Reason for Study: Other
Other Reason for Exam: lower extremity swelling
EKG- Treatment ONCE
10/17/24 12:06
Complete Blood Count/With Diff Urgent
Comprehensive Metabolic Panel Urgent
NT-proBNP Urgent
Troponin I Urgent
10/17/24 13:15
Venous Doppler Lwr Ext Left [US Periph Venous LOWER Ext LT] Urgent
Comment:
Reason For Exam: keft leg swelling
10/17/24 13:32
PT/INR [Prothrombin Time] Urgent
10/17/24 14:07
Chest [CR Chest - 2 Views ] Urgent
Comment:
Reason For Exam: sob
10/17/24 Dinner
Regular
At Your Request: Full Participation
Does patient need a safe tray?: No
10/17/24 15:05
CT Abd/Pel (IV only)-[facility] only Urgent
Comment:
Reason For Exam: CT VENOGRAM abdnormal US
10/17/24 18:26
0.9% Sodium Chloride 500 ml [Nss] 500 ml IV BOLUS
10/17/24 19:31
Admit/Transfer Patient As Directed
Co-Sign Provider:
Level of Care: Observation services
Assign to:: Medical/Surgical
Physician / Group: Julissa Arredondo
Diagnosis: LLE edema
PRN Pain Medication Management As Directed
May give lesser potent ordered pain med per pt: Yes
preference::
Protocol:: Medication orders for pain may be administered in a
manner that supports deferring to patient preference
when the pt is:
- Requesting an ordered lesser potent pain medication.
Least to most potent pain medications are defined
as: acetaminophen < NSAID < tramadol < opioids
(morphine, oxycodone, hydromorphone).
- Requesting a lesser dose of the same medication IF
ORDERED.
- Requesting a less intrusive route of administration
if both routes are prescribed by the provider (PO <
IV).
10/17/24 19:32
Code Status As Directed
Resuscitation Status: Full Code
10/17/24 21:14
Acetaminophen [Tylenol] 650 mg PO Q4HPRN PRN
10/17/24 21:14
Vascular Surgery Consult Routine
Consulting Provider: Anjel Diez III
Was physician already notified: Yes
Activity As Directed
Activity Level: As Tolerated
Bladder Scan As Directed
Follow Bladder Retention/Intermittent Cath Algorithm?: Yes
PRN if no void in __ hours: 6
Frequency: Per Retention Algorithm
If Bladder Scan Result >: 400
then:: Straight cath
Intake/ Output As Directed
Frequency: Per unit guidelines
Sleep Apnea Assessment by RN As Directed
Comment:
Physician Instructions:
Straight Cath As Directed
Frequency: Per Retention Algorithm
Additional Instructions: straight cath as needed per acute urinary retention algorithm for 24 hrs
Additional Instructions: for bladder scan greater than 400 mL
Vital Signs As Directed
Frequency: Per unit guidelines
Weight As Directed
Frequency: Daily
Type of Scale: Standing Scale
Comment: Daily morning weight. If unable to stand, use balanced bed scale.
Weight As Directed
Frequency: Once
Type of Scale: Standing Scale
Comment: Upon Admission. If unable to stand, use balanced bed scale.
Pulse Ox/cont/shift [RESP] Routine
Quantity: 1
Special Instructions: Daily pulse oximetry at rest. If greater than 92% at rest also obtain pulse oximetry
while ambulating as tolerated.
10/17/24 21:30
Sotalol [Betapace] 120 mg PO Q12
10/17/24 22:00
Atorvastatin [Lipitor] 80 mg PO HS
Carbidopa/Levodopa [Sinemet 25-100] 1.5 tablet PO TID
Gabapentin [Neurontin] 200 mg PO TID
Pantoprazole [Protonix] 40 mg PO HS
Warfarin [Coumadin] 3 mg PO [id number]
10/17/24 22:54
Case Management Consult ONCE
Case Management Consult: Discharge Planning
Other
Comment: having insurance issues and would like to get info on available resources
Ot Screening Request from Woody Routine
Pt Screening Request from [facility]y Routine
10/17/24 23:00
Miconazole Nitrate [Desenex/Mitrazol/Zeasorb] See Dose Instructions TOPICAL BID
10/17/24 23:13
Transfer Patient As Directed
Transfer to: Telemetry
Reason for Telemetry: Medication for Arrhythmia
Date to Stop Telemetry: 10/19/24
Time to Stop Telemetry: 11:00
10/17/24 23:[address] Non Medication Order As Directed
Physician Order: nystatin powder
left breast fold B/l groan BID prn
Above order entered?: Yes
10/18/24
HF Check Daily Weights Video Routine
HF Limiting Fluids Video Routine
HF Limiting Sodium Video Routine
HF Recognizing Symptoms Video Routine
HF Taking Medicines Video Routine
HF What is it? Video Routine
10/18/24 Breakfast
NPO
Allow oral meds: Yes
Allow clear liquids: No
10/18/24 07:37
Complete Blood Count/No Diff IN AM
Prothrombin Time IN AM
10/18/24 08:00
Cyanocobalamin [Vitamin B-12] 1,000 mcg PO DAILY
Furosemide [Lasix] 40 mg PO DAILY
10/18/24 08:53
Request for Physical Therapy [NOTICE] Routine
10/18/24 Lunch
Cholesterol Lowering
At Your Request: Full Participation
10/18/24 13:47
0.9% Sodium Chloride 500 ml [Nss] 500 ml IV BOLUS
10/18/24 Dinner
Low Fat
At Your Request: Full Participation
NPO
Allow oral meds: Yes
Allow clear liquids: No
10/18/24 16:11
Request for Occupational Therapy [NOTICE] Routine
10/18/24 17:30
CT Angio Abd/Pelvis w/wo IV [CT Abd/pelvis Angio W/wo Iv] Routine
Comment: eval stent patency, must be after 5:30pm
Reason For Exam: CT VENOGRAM REPEAT
10/18/24 21:46
Heparin Protocol- PTT Orders As Directed
PTT per Heparin protocol: -Obtain CBC and baseline PTT - if not already collected.
-Obtain PTT 6 hours from start of infusion. Then, every 6 hours until 2 consecutive
PTT's are therapeutic. Then, PTT Daily.
-With each rate change, obtain PTT every 6 hours until 2 consecutive PTT's are
therapeutic. Then, PTT Daily.
Notify MD As Directed
Notify physician if: PTT is greater than or equal to 200.
10/18/24 22:00
Heparin 25304 Units/250 ml 25,000 units in 250 ml IV PER PROTOCOL
Weight to be used for heparin protocol in kilograms (kg):: 112.236
Protocol:: DVT/PE
PTT Goal Range to be used:: PTT 73 to 111 seconds
Order type:: Initial
INITIAL Infusion Dose (UNITS/KG/hr) & then follow protocol:: 18 units/kg/hr
Infusion Dose in UNITS/hr & then follow protocol (UNITS/hr):: 2,000
INFUSION RATE in mL/hr & then follow protocol (mL/hr):: 20
For DVT/PE algorithm, re-bolus for low PTT?: No
PTT less than or equal to 64 seconds:: No Re-bolus. Increase by 500 units/hr (+ 5mL/hr)
PTT 64.1 to 72.9 seconds:: No Re-bolus. Increase by 200 units/hr (+ 2mL/hr)
PTT 73 to 111 seconds:: Target Range. No change in rate.
PTT 111.1 to 130.9 seconds:: Decrease rate by 200 units/hr (- 2 mL/hr)
PTT 131 to 199.9 seconds:: HOLD for 1 hr. Then decrease by 400 units/hr (- 4mL/hr)
PTT greater than or equal to 200 seconds:: HOLD for 2 hrs & Notify Provider. Then decrease by 500 units/hr
(- 5mL/hr)
Lab follow-up:: Each change, PTT q6h until 2 consecutive are therapeutic. Then
PTT daily.
10/18/24 22:40
Complete Blood Count/No Diff Urgent
Comment: Obtain baseline before beginning heparin infusion if not already collected
PTT Urgent
Comment: Obtain baseline before beginning heparin infusion if not already collected
10/19/24 05:25
PTT Urgent
Prothrombin Time IN AM
10/19/24 05:26
Complete Blood Count/No Diff IN AM
Comprehensive Metabolic Panel IN AM
10/19/24 Breakfast
NPO
Allow oral meds: Yes
Allow clear liquids: No
10/19/24 11:00
DC Protocol for Telemetry ONCE
10/19/24 14:32
PTT Urgent
10/20/24 06:00
Complete Blood Count/No Diff IN AM
Complete Blood Count/No Diff Q2D
Comment: Notify MD if platelet count is <130,000 or decreases by 50% from baseline
Comprehensive Metabolic Panel IN AM
Prothrombin Time IN AM
10/21/24 06:00
Complete Blood Count/No Diff IN AM
Comprehensive Metabolic Panel IN AM
10/21/24 08:00
Warfarin [Coumadin] 4.5 mg PO FR
10/22/24 06:00
Complete Blood Count/No Diff IN AM
Complete Blood Count/No Diff Q2D
Comment: Notify MD if platelet count is <130,000 or decreases by 50% from baseline
Comprehensive Metabolic Panel IN AM
10/23/24 06:00
Complete Blood Count/No Diff IN AM
Comprehensive Metabolic Panel IN AM
10/24/24 06:00
Complete Blood Count/No Diff Q2D
Comment: Notify MD if platelet count is <130,000 or decreases by 50% from baseline
10/26/24 06:00
Complete Blood Count/No Diff Q2D
Comment: Notify MD if platelet count is <130,000 or decreases by 50% from baseline
10/28/24 06:00
Complete Blood Count/No Diff Q2D
Comment: Notify MD if platelet count is <130,000 or decreases by 50% from baseline
10/30/24 06:00
Complete Blood Count/No Diff Q2D
Comment: Notify MD if platelet count is <130,000 or decreases by 50% from baseline
11/01/24 06:00
Complete Blood Count/No Diff Q2D
Comment: Notify MD if platelet count is <130,000 or decreases by 50% from baseline
11/03/24 06:00
Complete Blood Count/No Diff Q2D
Comment: Notify MD if platelet count is <130,000 or decreases by 50% from baseline
Abnormal Lab Results
10/17/24 10/17/24 10/18/24
12:06 13:32 07:37
RBC 4.14 L 10^6/uL 3.64 L 10^6/uL
(4.70-6.10) (4.70-6.10)
Hgb 8.2 L g/dL 7.3 L g/dL
(13.0-18.0) (13.0-18.0)
Hct 30.1 L % 26.3 L %
(39.0-52.0) (39.0-52.0)
MCV 72.7 L fL 72.3 L fL
(80.0-94.0) (80.0-94.0)
MCH 19.8 L pg 20.1 L pg
(27.0-31.0) (27.0-31.0)
MCHC 27.2 L g/dL 27.8 L g/dL
(33.0-37.0) (33.0-37.0)
RDW 21.9 H % 21.7 H %
(11.5-14.5) (11.5-14.5)
Absolute Lymphs (auto) 1.1 L 10^3/uL
(1.2-3.4)
Lymphocytes % 14.2 L %
(20.5-51.1)
Eosinophils % 6.2 H %
(0-6)
PT 25.0 H Sec 24.9 H Sec
(11.4-14.6) (11.4-14.6)
APTT
Glucose 105 H mg/dl
(70-99)
Total Protein 8.9 H g/dl
(6.3-8.2)
10/18/24 10/19/24 10/19/24
22:40 05:25 05:26
RBC 3.80 L 10^6/uL 3.83 L 10^6/uL
(4.70-6.10) (4.70-6.10)
Hgb 7.5 L g/dL 7.5 L g/dL
(13.0-18.0) (13.0-18.0)
Hct 27.3 L % 27.4 L %
(39.0-52.0) (39.0-52.0)
MCV 71.8 L fL 71.5 L fL
(80.0-94.0) (80.0-94.0)
MCH 19.7 L pg 19.6 L pg
(27.0-31.0) (27.0-31.0)
MCHC 27.5 L g/dL 27.4 L g/dL
(33.0-37.0) (33.0-37.0)
RDW 21.5 H % 21.4 H %
(11.5-14.5) (11.5-14.5)
Absolute Lymphs (auto)
Lymphocytes %
Eosinophils %
PT 28.8 H Sec
(11.4-14.6)
APTT 45.3 H Sec > 200 H* Sec
(23.4-35.0) (23.4-35.0)
Glucose
Total Protein
10/19/24 05:26
10/19/24 05:26
Vital Signs
Initial and Last Documented VS:
Initial Vital Signs
Temp Pulse Resp BP Pulse Ox
98.1 F 110 18 168/100 98
10/17/24 11:54 10/17/24 11:54 10/17/24 11:54 10/17/24 11:54 10/17/24 11:54
Last Documented Vital Signs
Temp Pulse Resp BP Pulse Ox
97.5 F 60 18 113/59 98
10/19/24 19:19 10/19/24 20:40 10/19/24 19:19 10/19/24 20:40 10/19/24 19:19
<Tim Abad Jr., PA-C - Last Filed: 10/19/24 23:08>
MDM/Problems Addressed
MDM/Problems Addressed:
61-year-old male presenting with concerns of significant worsening of left lower extremity swelling over the past week or so. Has had chronic swelling for many years. Left leg is much larger than the right on examination. Does have good distal
pulses. Plan for ultrasound for further assessment. Ultrasound without evidence of DVT but concerning for potential more proximal clot case was discussed with vascular surgery recommending CT venogram of the abdomen and pelvis.
<Tim Abad Jr., PA-C - Last Filed: 10/19/24 23:08>
*Pulse Oximetry
SaO2: 98
Oxygen Mode of Delivery: Room air
<Tigre Blandon PA-C - Last Filed: 10/17/24 19:39>
*Radiology
Radiology exam reviewed: radiology read reviewed
*Pulse Oximetry
Patient hypoxic: no
*Critical Care Note
Total Time (30-74mins, 75-104mins- exclusive of procedures): Not Applicable
<STACY Oleary Last Filed: 10/17/24 19:39>
Patient Management
Discussion with other providers: Hospitalist and Commercial Photographer
Escalation/DeEscalation of care consider admission/obs:
5 PM: Patient received in signout pending CT results and consultation with vascular surgery.
CT unfortunately suboptimal study and not able to fully evaluate the vasculature. Case was discussed with vascular surgery who states given the suboptimal study patient should be admitted for IV contrast washout with plan to repeat this study in
the morning and they will see the patient in consult. Hospitalist team was notified and accepts for continued evaluation and treatment.
ED Attending Note
<Tim Abad Jr., PA-C - Last Filed: 10/19/24 23:08>
-
Portions of this chart may have been created with voice recognition software.� Occasional wrong word or��sound alike� substitutions may have occurred due to the inherent limitations of voice recognition software.
Discharge Plan
Departure
Patient Disposition: Admit
Date of Disposition: 10/17/24
Time of Disposition: 18:26
Presentation/result/management discussed w/ accepting MD/DO: Hospitalist
Discharge Problem:
Edema of left lower extremity
Interventions
Interventions:
*Risk Screen - Suicide Last Done: 10/17/24 22:30
*General Assessment Last Done: 10/17/24 12:47
*Neglect/Abuse Screening Last Done: 10/17/24 11:54
*ED- Fall Risk Assessment Last Done: 10/17/24 12:47
*ED COVID-19 Vaccine History Last Done: 10/17/24 12:47
*Nursing Disposition Last Done: 10/17/24 21:10
ED- Pulmonary Assessment Last Done: 10/17/24 12:47
ED-Skin Assessment Last Done: 10/17/24 12:53
Discharge Date and Time
Discharge Date/Time: 10/17/24 21:11
[2024-10-17 14:36] VITALS: BP 148/80
[2024-10-17] MEDS: NSS 500 IV (18:39)
--- NOTE | 2024-10-17 18:50 | HPS.HSE ---
Addendum entered and electronically signed by Julissa Arredondo MD 10/17/24 21:13:
This is an addendum to H&P written by Rahel Scott on 10/17/2024. �Patient seen and examined independently with [employer]ING SPECIALIST.
69-year-old male past medical history of atrial fibrillation on Eliquis, CHF, CVA, hypertension, hypercholesteremia, cerebral palsy, seizures, Parkinson's, ulcerative colitis, hiatal hernia, extensive DVT status post IVC filter since removed,
history of left iliac stent, presenting for left lower extremity swelling up to the groin.
Vital signs show initial tachycardia 110.
INR 2.25.
Venous ultrasound shows no evidence of DVT, patent left iliac/common femoral vein stent.
CT abdomen pelvis shows bilateral iliac/femoral vein stents which could possibly be occluded but cannot be confirmed on the study.
Unclear if patient is having occlusion of left iliac/femoral vein stent. �Will likely require�CT venogram. �Vascular surgery consulted.
Original Note:
Family Physician
-
Family Physician: * NONE
Chief Complaint
-
LLE edema
History of Present Illness
Patient is a 69-year-old male with past medical history significant for hypertension, atrial fibrillation, HFpEF, Parkinson's disease, CAD and GERD who presented to [facility] ED for evaluation of LLE edema. He also notes increased edema in left groin
area with weak urinary stream and feeling he is not emptying bladder. Patient reports that swelling and pain have been intermittent for a long time most recently over past week. He does report intermittent fevers, nausea and vomting. He does not
when he had his last fever or episode of nausea/vomting. He denies any cough, shortness of breath, chest pain or diarrhea.
Medical History
Past Medical History
Past Medical History: Reports Other
Additional Past Medical History:
hypertension
atrial fibrillation
HFpEF
Parkinson's disease
CAD
GERD / hiatal hernia
ulcerative colitis
Hx DVT
Hx CVA
cervical spinal stenosis
morbid obesity
Past Surgical History: Reports Other
Additional Past Surgical History:
IVC Filter
Foot Surgery
Septoplasty
Social History
Tobacco: Former Smoker (Quit smoking 40 years ago.)
Alcohol: Occasional (rarely)
Drug: None
Living: With Family
Employment: Disabled
Family History
Family History: Not pertinent
Allergies / Home Medications
Allergies reflects when Allergies were last updated in [employer] [place].
Home Medications with original date entered in [employer] [place]
Allergy/Medication List:
Allergies
Allergy/AdvReac Type Severity Reaction Status Date / Time
latex Allergy Itching Verified 10/17/24 16:19
pantoprazole (From Protonix) Allergy Anaphylaxis-lip Verified 10/17/24 16:19
swelling
from IV
pantoprazole
peanut Allergy wheezing, Verified 10/17/24 16:19
swelling
pollen extracts Allergy nasal Verified 10/17/24 16:19
congestion
prednisone Allergy numbness/ti Verified 10/17/24 16:19
ngling
Tetanus Vaccines and Toxoid Allergy diarrhea Verified 10/17/24 16:19
Home Medications
gabapentin 100 mg capsule 200 mg PO TID Neurological Condition 03/15/21
atorvastatin 80 mg tablet (Lipitor) 80 mg PO HS High cholesterol 08/15/21
carbidopa 25 mg-levodopa 100 mg tablet 1.5 tab PO TID Neurological Condition 08/15/21
diphenhydramine HCl 25 mg capsule (Benadryl) 25 mg PO DAILYPRN PRN allergies 08/15/21
omeprazole 40 mg capsule,delayed release 40 mg PO HS Gastrointestinal issue 02/19/22
sotalol 120 mg tablet 120 mg PO Q12H Arrhythmia 02/19/22
warfarin 3 mg tablet 3 mg PO SUMOTUWETHSA 09/16/24
warfarin 3 mg tablet 4.5 mg PO FR 09/16/24
cyanocobalamin (vitamin B-12) 1,000 mcg tablet (Vitamin B-12) 1,000 mcg PO DAILY #30 tabs 09/24/24
furosemide 40 mg tablet (Lasix) 40 mg PO DAILY #30 tabs 09/25/24
Review of Systems
-
History Source: Patient
Constitutional: Reports No Symptoms
EENT: Reports No Symptoms
Respiratory: Reports No Symptoms
Cardiac: Reports No Symptoms
Abdomen/GI: Reports No Symptoms
: Reports No Symptoms
Musculoskeletal: Reports Other (LLE edema and erythema )
Skin: Reports No Symptoms
Neurological: Reports No Symptoms
Endocrine: Reports No Symptoms
Hematologic/Lymphatic: Reports No Symptoms
Psych: Reports No Symptoms
Physical Exam
Vital Signs
Vital Signs
Temp Pulse Resp BP Pulse Ox
98.1 F 91 18 148/80 100
10/17/24 11:54 10/17/24 14:36 10/17/24 14:36 10/17/24 14:36 10/17/24 14:36
Physical Exam
General: No Apparent Distress, Appears Chronically Ill and Obese
HEENT: NormoCephalic, Moist mucous membranes and Atraumatic
Respiratory: Clear and Non Labored Respirations; No Wheezes, Rales or Rhonchi
Cardiac: S1/S2 and Regular Rhythm; No Murmur, Rub or Gallop
Breast: Deferred by me
GI: Soft, Non Tender, Non Distended and Normal Bowel Sounds; No Organomegaly
Rectal: Deferred by Provider
Genito-urinary: Deferred by me
Musculoskeletal: No Clubbing, No Cyanosis and Other (LLE edema and erythema )
Skin: Warm and IV/Catheter Site; No Rash
Neuro: Awake, AO x 3 and Nonfocal/grossly intact
Hematologic/Lymphatic: No Lymphadenopathy
Psych: Calm
Laboratory Results
-
10/17/24 12:06
10/17/24 12:06
Laboratory Results
PT 25.0 Sec (11.4-14.6) H 10/17/24 13:32
INR 2.25 10/17/24 13:32
Total Bilirubin 1.2 mg/dl (0.2-1.3) 10/17/24 12:06
AST 21 U/L (17-59) 10/17/24 12:06
ALT 13 U/L (0-50) 10/17/24 12:06
Alkaline Phosphatase 78 U/L (38-126) 10/17/24 12:06
Troponin I < 0.012 ng/ml 10/17/24 12:06
Data Reviewed
-
Diagnostic Radiology: Report Reviewed by me (CXR: No acute pulmonary process identified.)
CT Scan: Report Reviewed by me (Abd/Pel: Interval removal of IVC filter since prior CT. Markedly limited study as a result of lack of 'angiographic' technique on this attempted venogram study with bilateral iliac and femoral venous stents again
seen. Stents may be occluded but cannot be confirmed on the basis of this study, as no)
Ultrasound: Report Reviewed by me (Nathalie Tonio US LLE: No deep venous thrombosis identified within the left lower extremity. Patent left iliac/common femoral vein stent. As above, there is less than expected respiratory phasicity of the venous
waveforms therefore the presence of a central venous stenosis or occlusion is a consideration.)
Medical Tests (Nuc Med, Echo, EKG etc): Report Reviewed by me (EKG: NORMAL SINUS RHYTHM)
Impression/Plan
-
IMPRESSION/PLAN:
#LLE edema and erythema 2/2 DVT vs. cellulitis
CXR: No acute pulmonary process identified.
Peripheral US LLE: No deep venous thrombosis identified within the left lower extremity. Patent left iliac/common femoral vein stent. As above, there is less than expected respiratory phasicity of the venous
waveforms therefore the presence of a central venous stenosis or occlusion is a consideration.
Abd/Pel: Interval removal of IVC filter since prior CT.
Markedly limited study as a result of lack of 'angiographic' technique on this attempted venogram study with bilateral iliac and femoral venous stents again seen. Stents may be occluded but cannot
be confirmed on the basis of this study, as noted above. Extensive widespread superficial venous varicosities as well as scrotal varicosities.
Moderate size hiatal hernia, moderate to large left inguinal hernia and most likely right scrotal hydrocele again noted.
Additional nonurgent findings, as noted above.
- Admit to med/surg
- Consult Vascular
- continue Coumadin
#atrial fibrillation
EKG: NORMAL SINUS RHYTHM
- continue sotalol and Coumadin
#HFpEF
ECHO (09/19/2024): 1. Normal left ventricular size and function, ejection fraction 55-60%.
2. Mildly thickened mitral leaflets with trace mitral regurgitation.
3. Normal aortic valve.
4. Normal right heart, pulmonary artery systolic pressure is 33 mmHg.
5. The study is similar to May 2022.
- daily weights
- I & Os
- continue furosemide
#Parkinson's disease
- continue carbidopa-levodopa
#CAD
- continue atorvastatin
#GERD / hiatal hernia
- continue omeprazole
#hypertension
#ulcerative colitis
#Hx DVT
#Hx CVA
Code status: full code
DVT prophylaxis: Coumadin
[2024-10-17 21:22] VITALS: BP 166/93
[2024-10-17 21:23] VITALS: BMI 41.2
[2024-10-17] MEDS: BETAPACE 120 MG PO (22:09)
[2024-10-17] MEDS: SINEMET 25-100 1.5 TABLET PO (22:20)
[2024-10-17] MEDS: NEURONTIN 200 MG PO (22:20)
[2024-10-17] MEDS: LIPITOR 80 MG PO (22:20)
[2024-10-17] MEDS: PROTONIX 40 MG PO (22:20)
[2024-10-17] MEDS: COUMADIN 3 MG PO (22:27)
[2024-10-17 22:55] VITALS: BMI 41.2
--- NOTE | 2024-10-17 23:00 | PTCARENOTE ---
Patient admitted to unit for eval of LLE edema. Patient is ambulatory (independent at baseline) with standby assistance. Left lower ext is swollen, red and warm to touch. Positive pedal pulses in bilateral lower ext; however, pulse is slightly
weaker in L side compared to R side. Some skin irritation noted under L breast and B/L groin - nystatin powder ordered. Otherwise denies any other complaints or concerns. Will continue to monitor.
[2024-10-17 23:17] VITALS: BP 135/77
[2024-10-18] MEDS: DESENEX/MITRAZOL/ZEASORB 1 APPLIC TOPICAL ×3 (00:14→21:41)
[2024-10-18 03:29] VITALS: BP 123/71
[2024-10-18 07:40] VITALS: BP 160/74
[2024-10-18 08:03] LABS: INR 2.24; PT 24.9 Sec (11.4-14.6)
[2024-10-18 08:06] VITALS: BMI 41.2
--- NOTE | 2024-10-18 08:10 | W.PN.UPDATE ---
Update Note
Progress Note Update
06/26/2022 �8:01 AM - [facility]ila[facility]spino[facility]
IMPRESSION:
Successful IVC filter removal and bilateral lower extremity venous recanalization and stenting.
�
ATTENDING PHYSICIAN AGREEMENT [[id number]]:
I have personally reviewed the images and agree with this report. This procedure was performed under my personal supervision; I was present for the entire procedure.
�
�
NARRATIVE:
Procedure:
1. Complex IVC filter removal
2. Inferior venacavogram and bilateral lower extremity venography.
3. Thrombectomy/IVUS of IVC and bilateral common/external iliac veins.
4. Stent of bilateral common/external iliac and common femoral veins.
5. Angioplasty of right femoral vein.
�
Staff: Oni Munguia
�
Resident: Rocio Mckeon
�
Contrast: 450 mL Isovue iv
�
Fluoroscopy time: 75.0 minutes pulsed at 7.5 pulses per second.
�
Complications: None
�
Medications: General anesthesia. Cefazolin 2 g iv.
�
Indication: History of deep vein thrombosis with placement of Celect IVC filter and chronic venous disease of the bilateral lower extremities (R:[id number]; L:[id number]). Now presenting with extensive thrombus extending from the IVC to the bilateral
common femoral veins. He is now on anticoagulation and does not require a filter.
�
Procedure: Multiple spot images of the filter were performed. Real-time ultrasound guidance was used to puncture the right internal jugular vein and a catheter was placed in the IVC. Cavograms were performed in multiple projections. A 18F sheath was
placed. Using endobronchial forceps, fractured filter leg was removed. The filter was then dissected free of the wall of the IVC using endobronchial forceps in the jaws of life technique. It was removed successfully. Post removal cavogram was
performed.
�
The sheath was then exchanged for an Inari Protrieve sheath positioned in the infrahepatic IVC. A catheter and wire were advanced into the right deep femoral vein and venography to the IVC performed. The catheter and wire were then redirected into
the proximal right femoral vein and venography performed. An Inari Triever 20 and FlowTriever 2 catheter system were inserted and thrombectomy from the right femoral vein to the inferior vena cava was performed, followed by venography.
�
Next, a catheter and wire were advanced into the left popliteal vein and venography to the IVC performed. An Inari ClotTriever was inserted and thrombectomy from the left common femoral vein to the IVC performed, followed by venography. The catheter
was exchanged for IVUS, which was performed of the left femoral, common femoral, external iliac, and common iliac veins to the IVC.
�
Real-time ultrasound guidance was used to access the right popliteal vein and a 7F sheath placed. A wire was advanced to the IVC, which was then snared from the internal jugular vein access for through and through access. IVUS was then performed of
the right femoral, common femoral, external iliac, and common iliac veins to the IVC. The ClotTriever was inserted through the IJ sheath and thrombectomy from the right common femoral vein to the IVC performed. Post thrombectomy venography was
performed.
�
Based on the findings, kissing 14mm x 150mm Abre stents were placed extending from the bilateral external iliac veins into the IVC. Angioplasty of the stents was performed with a 14mm balloon. Next, two additional 14mm x 150mm Abre stents were
placed extending from each external iliac vein into each common femoral vein. The external iliac and proximal/mid common femoral vein segments were angioplastied to 14mm. The distal common femoral vein segments of each stent was angioplastied to
12mm. Post stent venography was performed from the left popliteal vein and from the right popliteal vein sheath. Based on the findings, a 12mm balloon was inserted through the right popliteal sheath and angioplasty of the entire right femoral vein
was performed. Post angioplasty venography was performed. Final IVUS was performed from the bilateral femoral, common femoral, external iliac, and common iliac veins to the IVC. The sheaths and catheters were then removed and hemostasis achieved
with
purse-string sutures.
�
This procedure took more than twice the usual time, an unusually large amount of materials, and required a very high level of technical expertise and skill.
�
Findings:
1. Ultrasound shows anechoic and compressible right internal jugular and right popliteal veins.
2. Cook Celect filter is fractured and tip embedded. There is thrombus in the filter. Filter and fractured leg removed in their entirety. Post removal cavogram shows persistent caval thrombus without extravasation.
3. Initial right lower extremity venography shows extensive occlusive thrombus from the right common femoral vein to the IVC with prominent inguinal and pelvic collaterals. The right femoral vein is patent with multiple flow limiting stenoses. The
right deep femoral vein is widely patent and prior to intervention is the dominant outflow of the right lower extremity.
4. Initial left lower extremity venography shows extensive near occlusive thrombus from the left common femoral vein to the IVC with prominent inguinal and pelvic collaterals. The left femoral and popliteal veins are patent.
5. Post thrombectomy venography and IVUS show near occlusive chronic thrombus in the bilateral common femoral, external iliac, and common iliac veins to the IVC. The right femoral vein shows chronic thrombus resulting in multifocal stenoses. The
left femoral vein is widely patent.
6. Post stent venography and IVUS shows widely patent bilateral common femoral, external iliac, and common iliac veins. The IVC is widely patent. There is absence of opacification of the inguinal pelvic collaterals seen prior intervention.
7. Post angioplasty right popliteal venography shows resolution of right femoral vein stenoses and is now widely patent.
[2024-10-18 08:24] LABS: Hematocrit 26.3 % (39.0-52.0); Hemoglobin 7.3 g/dL (13.0-18.0); Mean Corp Hgb Conc. 27.8 g/dL (33.0-37.0); Mean Corpuscular Volume 72.3 fL (80.0-94.0); Platelet Count 281 10^3/uL (130-400); Red Cell Dist. Width 21.7 % (11.5-14.5)
[2024-10-18] MEDS: SINEMET 25-100 1.5 TABLET PO ×3 (08:43→21:35)
[2024-10-18] MEDS: VITAMIN B-12 1000 MCG PO (08:45)
[2024-10-18] MEDS: BETAPACE 120 MG PO ×2 (08:45→21:40)
[2024-10-18] MEDS: NEURONTIN 200 MG PO ×3 (08:46→21:39)
[2024-10-18] MEDS: LASIX 40 MG PO (08:47)
[2024-10-18] MEDS: COUMADIN 3 MG PO (08:47)
--- NOTE | 2024-10-18 09:35 | CON.VAS ---
Consultation
Consultation Request
Date/Time Consultation Performed: 10/18 0900
Performing Provider: Osorio Avina MD
Reason for Consultation: LLE Swelling
Medical History
-
Chief Complaint: LLE Swelling
History of Present Illness:
Patient presents with one month of swelling in his bilateral lower extremities, which has been particularly pronounced and progressive in his left lower extremity over the previous two weeks. Patient has chronic lower extremity swelling, but the
current LLE swelling is worse than usual. Patient endorses pain in his left lower extremity, which is 1/10 in intensity. Patient also endorses pain when he walks from one end of his house to the other, which is reproducible, 'punch-like' in
character, and 3/10 in intensity. Patient has been mobile at home recently, though he was recently hospitalized for right lower extremity cellulitis and discharged 09/25/24. Patient states he has his INR checked weekly, and his values over the past
month have been both above and below therapeutic range.
Past Medical History
Past Medical History: Arrhythmias, CHF, CVA, GERD, HTN, Hypercholesterolemia and Other (DVT, PE, ulcerative colitis, esophagitis, Parkinson's)
Past Surgical History: Other (IVC filter)
Social History
Tobacco: Former Smoker
Alcohol: Occasional
Drug: None
Family History
Family History: Other (Blood clots in grandmother and cousin)
Allergies / Home Medications
Allergy/AdvReac Type Severity Reaction Status Date / Time
latex Allergy Itching Verified 10/17/24 16:19
pantoprazole (From Protonix) Allergy Anaphylaxis-lip Verified 10/17/24 16:19
swelling
from IV
pantoprazole
peanut Allergy wheezing, Verified 10/17/24 16:19
swelling
pollen extracts Allergy nasal Verified 10/17/24 16:19
congestion
prednisone Allergy numbness/ti Verified 10/17/24 16:19
ngling
Tetanus Vaccines and Toxoid Allergy diarrhea Verified 10/17/24 16:19
�Medication �Instructions �Recorded �Confirmed �Type
gabapentin 100 mg capsule 200 mg PO TID Neurological 03/15/21 10/17/24 History
Condition
atorvastatin 80 mg tablet (Lipitor) 80 mg PO HS High cholesterol 08/15/21 10/17/24 History
carbidopa 25 mg-levodopa 100 mg 1.5 tab PO TID Neurological 08/15/21 10/17/24 History
tablet Condition
diphenhydramine HCl 25 mg capsule 25 mg PO DAILYPRN PRN allergies 08/15/21 10/17/24 History
(Benadryl)
omeprazole 40 mg capsule,delayed 40 mg PO HS Gastrointestinal issue 02/19/22 10/17/24 History
release
sotalol 120 mg tablet 120 mg PO Q12H Arrhythmia 02/19/22 10/17/24 History
warfarin 3 mg tablet 3 mg PO SUMOTUWETHSA 09/16/24 10/17/24 History
warfarin 3 mg tablet 4.5 mg PO FR 09/16/24 10/17/24 History
cyanocobalamin (vitamin B-12) 1,000 mcg PO DAILY #30 tabs 09/24/24 10/17/24 Rx
1,000 mcg tablet (Vitamin B-12)
furosemide 40 mg tablet (Lasix) 40 mg PO DAILY #30 tabs 09/25/24 10/17/24 Rx
Review of Systems
-
Constitutional: Reports Chills; Denies Fever or Fatigue
Vascular: Reports Leg Pain / Claudication; Denies Numbness or Tingling
Physical Exam
Vital Signs
Temp Pulse Resp BP Pulse Ox
97.1 F 64 14 160/74 96
10/18/24 07:40 10/18/24 08:45 10/18/24 07:40 10/18/24 08:45 10/18/24 07:40
Lab Results
10/18/24 07:37
10/17/24 12:06
Troponin I < 0.012 ng/ml 10/17/24 12:06
Dtl-F-Vfqfefuoyeh Pept 286 pg/ml 10/17/24 12:06
Physical Exam
General: No Apparent Distress
HEENT: Normocephalic
Cardiac: Other (Marked nonpitting edema in left lower extremity from foot to above the knee; TTP (3/10 pain) in LLE, particularly around the knee; venous stasis dermatitis from ankles to mid shins bilaterally; pulses difficult to palpate due to body
habitus, swelling; extremities warm with motor and sensory intact)
Skin: Warm and Rash (Venous stasis dermatitis bilateral lower extremities from ankles to mention)
Neuro: Awake and AO x 3
Psych: Calm
Assessment / Plan
-
Assessment: Patient is a 69-year-old male with PMH of DVT and PE on warfarin s/p bilateral iliac and common femoral vein stents and s/p IVC filter placed in and removed in 2022 due to clot who presents with marked left lower extremity
swelling with mild pain (1/10 intensity).
Suspect postthrombotic syndrome vs acute/chronic stent thrombosis
Physical exam findings include LLE w/ marked non-pitting edema with mild TTP around the knee but without erythema
U/S LLE (10/17): No LLE DVT; patent left iliac and common femoral vein stents
CT venogram (10/17): Suboptimal study due to angiographic technique, thus evaluation of stent patency limited
Plan:
Repeat CT venogram due to prior suboptimal study
Compression and elevation of lower extremities to reduce swelling/stasis
Surgical intervention unlikely to benefit patient, pending results of CT venogram
[2024-10-18 11:00] VITALS: BP 109/65
--- NOTE | 2024-10-18 14:12 | W.PN.HOSP.TC ---
Today's Communication/Plan
-
repeat ct, fluid with it
Assessment / Plan
Assessment / Plan
Physical Exam
General: No Apparent Distress, Appears Chronically Ill and Obese
HEENT: NormoCephalic, Moist mucous membranes and Atraumatic
Respiratory: Clear and Non Labored Respirations; No Wheezes, Rales or Rhonchi
Cardiac: S1/S2 and Regular Rhythm; No Murmur, Rub or Gallop
Breast: Deferred by me
GI: Soft, Non Tender, Non Distended and Normal Bowel Sounds; No Organomegaly
Rectal: Deferred by Provider
Genito-urinary: Deferred by me
Musculoskeletal: No Clubbing, No Cyanosis and Other (LLE edema and erythema )
Skin: Warm and IV/Catheter Site; No Rash
Neuro: Awake, AO x 3 and Nonfocal/grossly intact
Hematologic/Lymphatic: No Lymphadenopathy
Psych: Calm
#LLE edema and erythema
-Suspect postthrombotic syndrome vs acute/chronic stent thrombosis
-U/S LLE (10/17): No LLE DVT; patent left iliac and common femoral vein stents
-CT venogram (10/17): Suboptimal study due to angiographic technique, thus evaluation of stent patency limited
-Repeat CT venogram due to prior suboptimal study
-Compression and elevation of lower extremities to reduce swelling/stasis
-Surgical intervention unlikely to benefit patient as per Vascular, pending results of CT venogram
#atrial fibrillation
EKG: NORMAL SINUS RHYTHM
- continue sotalol and Coumadin
#HFpEF
- daily weights
- I & Os
- continue furosemide
#Parkinson's disease
- continue carbidopa-levodopa
#CAD
- continue atorvastatin
#GERD / hiatal hernia
- continue omeprazole
#hypertension
#ulcerative colitis
#Hx DVT
#Hx CVA
Code status: full code
DVT prophylaxis: Coumadin
Total time spent on today's encounter was 51 minutes which included time spent in counseling the patient/family regarding diagnosis and treatment plan as listed above, goals of care, and symptom management. Case was discussed with nursing staff,
specialists, and care coordinators/case management. All labs and imaging personally reviewed by me. Remainder the time spent in detailed review of previous records, lab data, imaging, and other medical provider documentation.
Anticipated Discharge: 24 - 48 hours
Subjective/Interval History
-
Date of Service: October 18, 2024
Suspect postthrombotic syndrome vs acute/chronic stent thrombosis
Objective Data
-
Labs:
Laboratory Results
10/18/24
07:37
WBC 4.9
Hgb 7.3 L
Hct 26.3 L
Plt Count 281
PT 24.9 H
INR 2.24
Vital Signs:
Vital Signs
Temp Pulse Resp BP Pulse Ox
98.4 F 56 19 109/65 99
10/18/24 11:00 10/18/24 11:00 10/18/24 11:00 10/18/24 11:00 10/18/24 11:00
I&O
10/17/24 10/18/24 10/19/24
06:59 06:59 06:59
Intake Total 480 / 480
Output Total 925 / 925
Balance -445 / -445
Review of Systems
-
History Source: Patient
All other systems: Reviewed and negative
Physical Exam
-
Respiratory: Clear to Auscultation
Cardiac: Regular Rhythm and S1/S2
GI: Soft and Nontender
Musculoskeletal: Edema, Right Lower Extrem and Edema, Left Lower Extrem
Neuro: AO x 3
Psych: Calm
Data Reviewed
-
Labs: Labs Reviewed by me
[2024-10-18 15:51] VITALS: BP 124/76
--- NOTE | 2024-10-18 16:06 | CM ---
Patient was admitted under OBS, [place] letter provided to patient, signed and placed on chart, patient lives in a 2 story home, no steps to enter, patient is independent with adl's and uses a walker or cane with ambulation, patient lives with sister,
nephews and niece who assist patient in home, [facility], patient was asking about insurance, patient has insurance but recently patient went to [place] office to apply for previous insurance her got through [facility] and
they told him that he was over income now and didn't qualify, rehabilitation caseworker explained to patient that they are the ones that make that decision, and rehabilitation caseworker cannot offer any other guidance.
[facility]P: [facility]
Pharmacy: [facility] in [place].
Plan; Home with family when stable.
[2024-10-18] MEDS: NSS 500 IV (16:50)
[2024-10-18 19:48] VITALS: BP 117/68
[2024-10-18] MEDS: PROTONIX 40 MG PO (21:39)
[2024-10-18] MEDS: LIPITOR 80 MG PO (21:40)
--- NOTE | 2024-10-18 21:48 | W.PN.UPDATE ---
Update Note
Progress Note Update
RN reported CT results in. Dr. Nelson made aware. CT abd/pelvis results send, Today's lab results and plan from vascular team send, Advised to start heparin drip, hold warfarin, NPO MN, possible Venogram. patient with no new complaints.
[2024-10-18 22:50] LABS: Hematocrit 27.3 % (39.0-52.0); Hemoglobin 7.5 g/dL (13.0-18.0); Mean Corp Hgb Conc. 27.5 g/dL (33.0-37.0); Mean Corpuscular Volume 71.8 fL (80.0-94.0); Platelet Count 278 10^3/uL (130-400); Red Cell Dist. Width 21.5 % (11.5-14.5)
[2024-10-18] MEDS: HEPARIN 25000 UNITS/250 ML IV (22:51)
[2024-10-18 22:58] LABS: APTT 45.3 Sec (23.4-35.0)
[2024-10-18 23:11] VITALS: BP 114/60
[2024-10-19 04:17] VITALS: BP 118/71
[2024-10-19] MEDS: TYLENOL 650 MG PO ×2 (05:40→11:59)
[2024-10-19 06:01] LABS: PT 28.8 Sec (11.4-14.6)
[2024-10-19 06:21] LABS: Hematocrit 27.4 % (39.0-52.0); Hemoglobin 7.5 g/dL (13.0-18.0); Mean Corp Hgb Conc. 27.4 g/dL (33.0-37.0); Mean Corpuscular Volume 71.5 fL (80.0-94.0); Platelet Count 257 10^3/uL (130-400); Red Cell Dist. Width 21.4 % (11.5-14.5)
[2024-10-19 06:22] LABS: ALT (SGPT) < 10 U/L (0-50); AST (SGOT) 23 U/L (17-59); Albumin 3.9 g/dl (3.5-5.0); Alkaline Phosphatase 71 U/L (38-126); Blood Urea Nitrogen 17 mg/dl (9-20); Calcium 9.1 mg/dl (8.4-10.2); Chloride 106 mmol/L (98-107); Estimated Creatinine Clearance 91 ml/min; Glucose 89 mg/dl (70-99); Sodium 138 mmol/L (135-145); Total Protein 7.6 g/dl (6.3-8.2); eGFR > 60.00
[2024-10-19 06:26] LABS: APTT > 200 Sec (23.4-35.0)
[2024-10-19 06:27] LABS: INR 2.72
[2024-10-19 06:34] LABS: Carbon Dioxide 23 mmol/L (22-30); Potassium 4.4 mmol/L (3.5-5.1)
[2024-10-19 07:20] VITALS: BP 133/68
[2024-10-19] MEDS: VITAMIN B-12 1000 MCG PO (08:27)
[2024-10-19] MEDS: BETAPACE 120 MG PO ×2 (08:27→20:40)
[2024-10-19] MEDS: NEURONTIN 200 MG PO ×3 (08:27→20:40)
[2024-10-19] MEDS: SINEMET 25-100 1.5 TABLET PO ×3 (08:27→20:40)
[2024-10-19] MEDS: DESENEX/MITRAZOL/ZEASORB 1 APPLIC TOPICAL ×2 (08:29→20:42)
[2024-10-19] MEDS: LASIX 40 MG PO (08:37)
[2024-10-19 11:30] VITALS: BP 140/71
[2024-10-19] MEDS: HEPARIN 25000 UNITS/250 ML IV (13:49)
--- NOTE | 2024-10-19 14:03 | W.PN.HOSP.TC ---
Today's Communication/Plan
-
hep ggt
planning for venogram - anticipate tomorrow
Assessment / Plan
Assessment / Plan
Physical Exam
General: No Apparent Distress, Appears Chronically Ill and Obese
HEENT: NormoCephalic, Moist mucous membranes and Atraumatic
Respiratory: Clear and Non Labored Respirations; No Wheezes, Rales or Rhonchi
Cardiac: S1/S2 and Regular Rhythm; No Murmur, Rub or Gallop
Breast: Deferred by me
GI: Soft, Non Tender, Non Distended and Normal Bowel Sounds; No Organomegaly
Rectal: Deferred by Provider
Genito-urinary: Deferred by me
Musculoskeletal: No Clubbing, No Cyanosis and Other (LLE edema and erythema )
Skin: Warm and IV/Catheter Site; No Rash
Neuro: Awake, AO x 3 and Nonfocal/grossly intact
Hematologic/Lymphatic: No Lymphadenopathy
Psych: Calm
#LLE edema and erythema
-Suspect postthrombotic syndrome vs acute/chronic stent thrombosis
-U/S LLE (10/17): No LLE DVT; patent left iliac and common femoral vein stents
-CT venogram (10/18): Some thrombus seen in the left femoral venous system caudal to left-sided stent
-Repeat venogram - anticipate tomorrow; bilateral iliofemoral venous stents with findings suggesting the possibility of stent occlusion
-Likely add on for venogram tomorrow
-Hep ggt
-Compression and elevation of lower extremities to reduce swelling/stasis
-Surgical intervention unlikely to benefit patient as per Vascular, pending results of CT venogram
#atrial fibrillation
EKG: NORMAL SINUS RHYTHM
- continue sotalol and Coumadin
#HFpEF
- daily weights
- I & Os
- continue furosemide
#Parkinson's disease
- continue carbidopa-levodopa
#CAD
- continue atorvastatin
#GERD / hiatal hernia
- continue omeprazole
#hypertension
#ulcerative colitis
#Hx DVT
#Hx CVA
Code status: full code
DVT prophylaxis: Coumadin
Total time spent on today's encounter was 53 minutes which included time spent in counseling the patient/family regarding diagnosis and treatment plan as listed above, goals of care, and symptom management. Case was discussed with nursing staff,
specialists, and care coordinators/case management. All labs and imaging personally reviewed by me. Remainder the time spent in detailed review of previous records, lab data, imaging, and other medical provider documentation.
Anticipated Discharge: 24 - 48 hours
Subjective/Interval History
-
Date of Service: October 19, 2024
venogram with high suspicion of filter occlusion
Objective Data
-
Labs:
Laboratory Results
10/19/24 10/19/24 10/19/24
05:25 05:26 14:30
WBC 5.3
Hgb 7.5 L
Hct 27.4 L
Plt Count 257
PT 28.8 H
INR 2.72
APTT > 200 H* Pending
Sodium 138
Potassium 4.4
Chloride 106
Carbon Dioxide 23
BUN 17
Creatinine 0.9
Glucose 89
Calcium 9.1
Total Bilirubin 1.3
AST 23
ALT < 10
Alkaline Phosphatase 71
Vital Signs:
Vital Signs
Temp Pulse Resp BP Pulse Ox
97.9 F 59 16 140/71 96
10/19/24 11:30 10/19/24 11:30 10/19/24 11:30 10/19/24 11:30 10/19/24 11:30
I&O
10/18/24 10/19/24 10/20/24
06:59 06:59 06:59
Intake Total 480 / 480 1140 / 1140
Output Total 925 / 925 2455 / 2455
Balance -445 / -445 -1315 / -1315
Review of Systems
-
History Source: Patient
All other systems: Reviewed and negative
Physical Exam
-
General: Well Developed
Respiratory: Clear to Auscultation
Cardiac: Regular Rhythm and S1/S2
GI: Soft and Nontender
Musculoskeletal: Edema, Right Lower Extrem and Edema, Left Lower Extrem
Neuro: AO x 3
Psych: Calm
Data Reviewed
-
CT Scan: Report Reviewed by me
Labs: Labs Reviewed by me
--- NOTE | 2024-10-19 15:05 | W.PN.UPDATE ---
Update Note
Progress Note Update
I reviewed CT scan that he completed yesterday. Demonstrates what appears to be a left iliac vein stent occlusion with some thrombus extending beyond the stent towards the groin. Hard to say definitively based on the timing of contrast as noted by
the radiologist. However that is what it appears like. He has now with subacute/chronic symptoms (2 to 4 weeks). He notes when I talk to him today that has been actually a month. Therefore I discussed with him that the options are: #1 just
continued anticoagulation and compression therapy (wrapped with Gerry bandages or compression stockings). I discussed with him that this would likely alleviate the swelling over time but would be a slow process. In addition he did be more prone to
developing recurrent episodes of swelling with chronic thrombus throughout the venous system. However it is the least invasive and carries a less risk. #2 attempted catheter directed intervention. Discussed that the catheter directed thrombolysis
is likely contraindicated here. Based on his significantly decreased hemoglobin, significant bleeding risk (possible GI bleeding risk), I think that subjecting him to thrombolysis would be significant risk. Therefore discussed with him that could
do single session mechanical thrombectomy with aspiration thrombectomy device. Discussed the limitations of this and that we may not be able to extract the entirety of the thrombus. In addition discussed that there is some risk of fragmenting of
thrombus, could result in PE. He understands everything. He wishes to proceed with an attempt at aspiration/mechanical thrombectomy. Will plan ascending venogram and possible catheter-based thrombectomy tomorrow.
[2024-10-19 15:08] LABS: APTT > 200 Sec (23.4-35.0)
[2024-10-19 15:20] VITALS: BP 129/72
[2024-10-19 19:19] VITALS: BP 113/59
[2024-10-19] MEDS: LIPITOR 80 MG PO (20:41)
[2024-10-19] MEDS: PROTONIX 40 MG PO (20:41)
[2024-10-19 21:07] LABS: Glucose - Point of Care 105 mg/dl (70-99)
[2024-10-19] MEDS: TYLENOL 1000 MG PO (21:15)
[2024-10-19 23:12] VITALS: BP 101/63
[2024-10-20] VITALS (15 sets, daily range): BP systolic 88–143; BP diastolic 49–76; BMI 40.5
[2024-10-20 00:36] LABS: APTT 94.0 Sec (23.4-35.0)
[2024-10-20 07:17] LABS: Hematocrit 29.9 % (39.0-52.0); Hemoglobin 8.2 g/dL (13.0-18.0); Mean Corp Hgb Conc. 27.4 g/dL (33.0-37.0); Mean Corpuscular Volume 72.2 fL (80.0-94.0); Platelet Count 321 10^3/uL (130-400); Red Cell Dist. Width 21.5 % (11.5-14.5)
[2024-10-20 07:20] LABS: INR 2.65; PT 28.7 Sec (11.4-14.6)
[2024-10-20 07:22] LABS: APTT 78.3 Sec (23.4-35.0)
[2024-10-20 07:35] LABS: ALT (SGPT) < 10 U/L (0-50); AST (SGOT) 15 U/L (17-59); Albumin 3.9 g/dl (3.5-5.0); Alkaline Phosphatase 70 U/L (38-126); Blood Urea Nitrogen 17 mg/dl (9-20); Calcium 8.9 mg/dl (8.4-10.2); Carbon Dioxide 27 mmol/L (22-30); Chloride 103 mmol/L (98-107); Estimated Creatinine Clearance 81 ml/min; Glucose 83 mg/dl (70-99); Potassium 4.3 mmol/L (3.5-5.1); Sodium 136 mmol/L (135-145); Total Protein 7.7 g/dl (6.3-8.2); eGFR > 60.00
[2024-10-20] MEDS: LASIX 40 MG PO (08:11)
[2024-10-20] MEDS: BETAPACE 120 MG PO ×2 (08:11→19:49)
[2024-10-20] MEDS: SINEMET 25-100 1.5 TABLET PO ×3 (08:11→19:49)
[2024-10-20] MEDS: NEURONTIN 200 MG PO ×3 (08:11→19:49)
[2024-10-20] MEDS: VITAMIN B-12 1000 MCG PO (08:11)
[2024-10-20] MEDS: DESENEX/MITRAZOL/ZEASORB 1 APPLIC TOPICAL ×2 (08:12→19:48)
--- NOTE | 2024-10-20 10:01 | CM ---
Patient seen at bedside
plan ascending venogram and possible catheter-based thrombectomy today
PT to eval
PLAN: Home, CM to watch for needs when stable
--- NOTE | 2024-10-20 12:35 | W.PN.HOSP.TC ---
Today's Communication/Plan
-
venogram
probable aspiration/mechanical thrombectomy tomorrow
Assessment / Plan
Assessment / Plan
Physical Exam
General: No Apparent Distress, Appears Chronically Ill and Obese
HEENT: NormoCephalic, Moist mucous membranes and Atraumatic
Respiratory: Clear and Non Labored Respirations; No Wheezes, Rales or Rhonchi
Cardiac: S1/S2 and Regular Rhythm; No Murmur, Rub or Gallop
Breast: Deferred by me
GI: Soft, Non Tender, Non Distended and Normal Bowel Sounds; No Organomegaly
Rectal: Deferred by Provider
Genito-urinary: Deferred by me
Musculoskeletal: No Clubbing, No Cyanosis and Other (LLE edema and erythema )
Skin: Warm and IV/Catheter Site; No Rash
Neuro: Awake, AO x 3 and Nonfocal/grossly intact
Hematologic/Lymphatic: No Lymphadenopathy
Psych: Calm
#LLE edema and erythema
-Suspect postthrombotic syndrome vs acute/chronic stent thrombosis
-U/S LLE (10/17): No LLE DVT; patent left iliac and common femoral vein stents
-CT venogram (10/18): Some thrombus seen in the left femoral venous system caudal to left-sided stent
-Repeat venogram - bilateral iliofemoral venous stents with findings suggesting the possibility of stent occlusion
- venogram today
-possible aspiration/mechanical thrombectomy tomorrow
-Hep ggt
-Compression and elevation of lower extremities to reduce swelling/stasis
-Surgical intervention unlikely to benefit patient as per Vascular, pending results of CT venogram
#atrial fibrillation
EKG: NORMAL SINUS RHYTHM
- continue sotalol and Coumadin
#HFpEF
- daily weights
- I & Os
- continue furosemide
#Parkinson's disease
- continue carbidopa-levodopa
#CAD
- continue atorvastatin
#GERD / hiatal hernia
- continue omeprazole
#hypertension
#ulcerative colitis
#Hx DVT
#Hx CVA
Code status: full code
DVT prophylaxis: Coumadin
Total time spent on today's encounter was 53 minutes which included time spent in counseling the patient/family regarding diagnosis and treatment plan as listed above, goals of care, and symptom management. Case was discussed with nursing staff,
specialists, and care coordinators/case management. All labs and imaging personally reviewed by me. Remainder the time spent in detailed review of previous records, lab data, imaging, and other medical provider documentation.
Anticipated Discharge: Today
Subjective/Interval History
-
Date of Service: October 20, 2024
No acute events overnight
Objective Data
-
Labs:
Laboratory Results
10/20/24 10/20/24 10/20/24
00:15 06:54 06:55
WBC 4.7 L
Hgb 8.2 L
Hct 29.9 L
Plt Count 321 D
PT 28.7 H
INR 2.65
APTT 94.0 H 78.3 H Cancelled
Sodium 136
Potassium 4.3
Chloride 103
Carbon Dioxide 27
BUN 17
Creatinine 1.0
Glucose 83
Calcium 8.9
Total Bilirubin 1.2
AST 15 L
ALT < 10
Alkaline Phosphatase 70
Vital Signs:
Vital Signs
Temp Pulse Resp BP Pulse Ox
98.3 F 56 16 125/76 96
10/20/24 10:19 10/20/24 10:30 10/20/24 10:30 10/20/24 10:19 10/20/24 10:30
I&O
10/19/24 10/20/24 10/21/24
06:59 06:59 06:59
Intake Total 1140 / 1140 480 / 480
Output Total 2455 / 2455 600 / 600 550 / 550
Balance -1315 / -1315 -120 / -120 -550 / -550
Review of Systems
-
History Source: Patient
All other systems: Reviewed and negative
Data Reviewed
-
CT Scan: Report Reviewed by me
Labs: Labs Reviewed by me
[2024-10-20 13:16] LABS: ACT-LR - POC 221 Seconds (116-155)
--- NOTE | 2024-10-20 13:19 | W.SUR.POST ---
Surgical Immediate Post Op
Note
Pre Op Diagnosis: DVT
Post Op Diagnosis: same
Procedure Performed: left popliteal venous access, mechanical thrombectomy with penumbra, balloon angioplasty iliac vein stent
Primary Surgeon: Ronal
Anesthesia: LMA
Estimated Blood Loss: 300cc
Fluids: see anesthesia flow sheet
Drains/Shunts: none
Specimens/Cultures: none
Doppler/Duplex/Angio (Y/N): Y
Complications: none
Operative Findings: successful clot retreival
--- NOTE | 2024-10-20 13:57 | OR.RPT ---
Operative Report
Operative Report
PROCEDURE DATE: 10/20/2024
Preoperative diagnosis:
1. History of DVT/PE with history of bilateral double barrel iliac vein stents.
2. 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
Postoperative diagnosis: Same
Procedure:
1. Duplex assisted cannulation of left popliteal vein.
2. Ascending left lower extremity venogram and central venogram.
3. Penumbra mechanical thrombectomy of left common femoral vein and iliac vein stent with Penumbra Flash 16 catheter.
4. Balloon angioplasty of left iliac vein stents with 12 mm angioplasty balloon.
Surgeon: Ronal
Inside Sales Manager: None
Complications: None
Anesthesia: Local, sedation
Fluoroscopy:
12.4 min
504 mGy
104.05 gy.cm2
Indications for procedure:
Subacute thrombosis left iliac vein stents and left common femoral vein. Discussed risks of attempted mechanical thrombectomy. Patient not a candidate for catheter directed thrombolysis, in addition likely acute or subacute on chronic thrombus.
Patient with significant symptoms of leg swelling and discomfort. Risk/benefits/alternatives of attempted mechanical thrombectomy discussed. He understood and wished to proceed.
Description of procedure:
Patient was identified, brought to the operating room. Placed on the table in the PRONE position. All pressure points were appropriately padded. After the adequate administration of anesthesia, the patient was prepped and draped in the standard
surgical fashion. A standard preoperative timeout was undertaken and everybody was in agreement with the plan.
The left Popliteal vein was accessed under direct duplex ultrasound guidance with a micropuncture needle and micropuncture sheath was advanced. We then advanced a 6 Albanian sheath over a 0.035 inch wire. Ascending left lower extremity venogram was
performed. This demonstrated patent popliteal and femoral vein. The confluence of the veins appeared patent (confluence of profunda vein). However there was an occlusive or near occlusive clot located at the edge of the stent in the proximal
common femoral vein. I do not see any filling into the iliac vein stent as well. The patient was given 6000's of intravenous heparin. ACT's were checked throughout the case.
I now used a floppy angled hydrophilic wire and a glide catheter to cannulate into the stent and then advanced the catheter. Venogram demonstrated occlusion of the stent. I therefore then was able to use a floppy wire and gain wire access into the
inferior vena cava superior to the stent. Catheter was advanced. Central venogram demonstrated patent inferior vena cava with no evidence of thrombosis in the IVC.
At this point I exchanged for a 0.035 inch Storq wire. I then used an 11 Albanian sheath to dilate the subcutaneous tract (exchanged the 6 Albanian sheath for an 11 Albanian sheath). I then advanced the 17 Albanian Penumbra Element sheath. Next, we used
a Penumbra Flash 16 catheter which was advanced up to the vicinity of the clot. We then turned on the aspiration and ran the device through the common femoral vein and up the iliac vein stent. Significant thrombus was retrieved. Once completed, I
performed a standing venogram again. This demonstrated some residual thrombus likely chronic in the medial aspect of the stent. We then ran the penumbra catheter again directing it towards that medial thrombus. Once we completed this we had a
reasonable flow lumen. Therefore I then used a 12 mm angioplasty balloon and angioplastied the entirety of the iliac vein stent back into the common femoral vein. Completion venogram now demonstrated slowed flow actually through the stent
concerning for repeated thrombus. I advanced a glide catheter up and noted that there was an additional thrombus now that was stuck in the stent near the confluence with the contralateral iliac vein stent. Therefore we then ran the penumbra
catheter 1 more time in that vicinity and retrieved significant thrombus. Once we completed this I performed completion venogram and now there is an excellent channel of flow running through with brisk flow through the iliac veins. At this point I
was very satisfied. The wires were withdrawn. Some protamine was given for partial reversal of heparinization (not complete) to allow safe sheath pulling. A pursestring stitch was placed around the sheath entry site with a 2-0 nylon suture. This
was then tied down as the sheath was withdrawn. Manual pressure was also applied to the sheath entry site. Hemostasis was fully achieved. The patient was then transferred back to the stretcher onto the supine position. He was extubated on the
stretcher. The left lower extremity was wrapped with compressive Gerry bandage. Patient tolerated procedure well. He was transported to recovery room in stable condition.
[2024-10-20 14:05] LABS: ACT-LR - POC > 397 Seconds (116-155)
[2024-10-20 14:05] LABS: ACT-LR - POC > 397 Seconds (116-155)
[2024-10-20 14:28] LABS: Hematocrit 27.1 % (39.0-52.0); Hemoglobin 7.4 g/dL (13.0-18.0); Mean Corp Hgb Conc. 27.3 g/dL (33.0-37.0); Mean Corpuscular Volume 72.5 fL (80.0-94.0); Platelet Count 254 10^3/uL (130-400); Red Cell Dist. Width 21.3 % (11.5-14.5)
[2024-10-20 14:51] LABS: Blood Urea Nitrogen 17 mg/dl (9-20); Calcium 8.4 mg/dl (8.4-10.2); Carbon Dioxide 25 mmol/L (22-30); Chloride 104 mmol/L (98-107); Estimated Creatinine Clearance 81 ml/min; Glucose 90 mg/dl (70-99); Potassium 4.1 mmol/L (3.5-5.1); Sodium 135 mmol/L (135-145); eGFR > 60.00
--- NOTE | 2024-10-20 15:40 | TRANSFER ---
Patient arrived from PACU, heparin infusing at 10 units, 1 unit PRBC infusing to gravity. Site check performed on arrival. Pulses palpable, cap refill <2. Patient denies increase in pain, sensations intact.
[2024-10-20] MEDS: NSS 1000 IV (16:56)
[2024-10-20] MEDS: HEPARIN 25000 UNITS/250 ML IV (18:38)
[2024-10-20] MEDS: LIPITOR 80 MG PO (19:49)
[2024-10-20] MEDS: PROTONIX 40 MG PO (19:50)
[2024-10-20 19:58] LABS: APTT 109.4 Sec (23.4-35.0)
[2024-10-21] VITALS (8 sets, daily range): BP systolic 109–139; BP diastolic 58–74; PULSE 58–62; O2SAT 98; BMI 40.8
[2024-10-21 03:02] LABS: APTT 114.0 Sec (23.4-35.0)
[2024-10-21] MEDS: SINEMET 25-100 1.5 TABLET PO ×3 (08:35→22:05)
[2024-10-21] MEDS: NEURONTIN 200 MG PO ×3 (08:36→22:05)
[2024-10-21] MEDS: BETAPACE 120 MG PO ×2 (08:37→20:02)
[2024-10-21] MEDS: LASIX 40 MG PO (08:38)
[2024-10-21] MEDS: VITAMIN B-12 1000 MCG PO (08:38)
[2024-10-21] MEDS: DESENEX/MITRAZOL/ZEASORB 1 APPLIC TOPICAL ×2 (08:39→20:10)
[2024-10-21 09:39] LABS: Hematocrit 32.0 % (39.0-52.0); Hemoglobin 9.1 g/dL (13.0-18.0); Mean Corp Hgb Conc. 28.4 g/dL (33.0-37.0); Mean Corpuscular Volume 73.9 fL (80.0-94.0); Platelet Count 195 10^3/uL (130-400); Red Cell Dist. Width 22.3 % (11.5-14.5)
[2024-10-21 09:48] LABS: APTT 62.3 Sec (23.4-35.0)
[2024-10-21 09:50] LABS: ALT (SGPT) < 10 U/L (0-50); AST (SGOT) 17 U/L (17-59); Albumin 4.1 g/dl (3.5-5.0); Alkaline Phosphatase 62 U/L (38-126); Blood Urea Nitrogen 15 mg/dl (9-20); Calcium 8.8 mg/dl (8.4-10.2); Carbon Dioxide 23 mmol/L (22-30); Chloride 104 mmol/L (98-107); Estimated Creatinine Clearance 81 ml/min; Glucose 110 mg/dl (70-99); Potassium 3.9 mmol/L (3.5-5.1); Sodium 137 mmol/L (135-145); Total Protein 8.0 g/dl (6.3-8.2); eGFR > 60.00
--- NOTE | 2024-10-21 13:44 | W.PN.HOSP.TC ---
Today's Communication/Plan
-
hep ggt
await vascular recs
pt/ot
Assessment / Plan
Assessment / Plan
Physical Exam
General: No Apparent Distress, Appears Chronically Ill and Obese
HEENT: NormoCephalic, Moist mucous membranes and Atraumatic
Respiratory: Clear and Non Labored Respirations; No Wheezes, Rales or Rhonchi
Cardiac: S1/S2 and Regular Rhythm; No Murmur, Rub or Gallop
Breast: Deferred by me
GI: Soft, Non Tender, Non Distended and Normal Bowel Sounds; No Organomegaly
Rectal: Deferred by Provider
Genito-urinary: Deferred by me
Musculoskeletal: No Clubbing, No Cyanosis and Other (LLE edema and erythema )
Skin: Warm and IV/Catheter Site; No Rash
Neuro: Awake, AO x 3 and Nonfocal/grossly intact
Hematologic/Lymphatic: No Lymphadenopathy
Psych: Calm
#LLE edema and erythema
-Suspect postthrombotic syndrome vs acute/chronic stent thrombosis
-U/S LLE (10/17): No LLE DVT; patent left iliac and common femoral vein stents
-CT venogram (10/18): Some thrombus seen in the left femoral venous system caudal to left-sided stent
-Repeat venogram - bilateral iliofemoral venous stents with findings suggesting the possibility of stent occlusion
-Successful aspiration/thrombectomy 10/20
-Hep ggt
-Compression and elevation of lower extremities to reduce swelling/stasis
-Surgical intervention unlikely to benefit patient as per Vascular, pending results of CT venogram
#atrial fibrillation
EKG: NORMAL SINUS RHYTHM
- continue sotalol and Coumadin
#HFpEF
- daily weights
- I & Os
- continue furosemide
#Parkinson's disease
- continue carbidopa-levodopa
#CAD
- continue atorvastatin
#GERD / hiatal hernia
- continue omeprazole
#hypertension
#ulcerative colitis
#Hx DVT
#Hx CVA
Code status: full code
DVT prophylaxis: Coumadin
Anticipated Discharge: Within 24 hours
Subjective/Interval History
-
Date of Service: October 21, 2024
Successful thrombectomy
Objective Data
-
Labs:
Laboratory Results
10/21/24 10/21/24 10/21/24
02:28 06:00 09:27
WBC 6.7
Hgb 9.1 L D
Hct 32.0 L
Plt Count 195 D
APTT 114.0 H Cancelled 62.3 H
Sodium 137
Potassium 3.9
Chloride 104
Carbon Dioxide 23
BUN 15
Creatinine 1.0
Glucose 110 H
Calcium 8.8
Total Bilirubin 1.2
AST 17
ALT < 10
Alkaline Phosphatase 62
10/21/24
16:30
WBC
Hgb
Hct
Plt Count
APTT Pending
Sodium
Potassium
Chloride
Carbon Dioxide
BUN
Creatinine
Glucose
Calcium
Total Bilirubin
AST
ALT
Alkaline Phosphatase
Vital Signs:
Vital Signs
Temp Pulse Resp BP Pulse Ox
97.7 F 57 18 109/63 99
10/21/24 11:03 10/21/24 11:03 10/21/24 11:03 10/21/24 11:03 10/21/24 11:03
I&O
10/20/24 10/21/24 10/22/24
06:59 06:59 06:59
Intake Total 480 / 480 1720 / 1720
Output Total 600 / 600 2600 / 2600
Balance -120 / -120 -880 / -880
Review of Systems
-
History Source: Patient
All other systems: Reviewed and negative
Data Reviewed
-
CT Scan: Report Reviewed by me
Labs: Labs Reviewed by me
--- NOTE | 2024-10-21 14:14 | W.PN.VS ---
Today's Communication / Plan
-
Discussed with Dr. Diez
Assessment/Plan
-
POD 1 Duplex assisted cannulation of left popliteal vein.
Ascending left lower extremity venogram and central venogram.
Penumbra mechanical thrombectomy of left common femoral vein and iliac vein stent with Penumbra Flash 16 catheter.
Balloon angioplasty of left iliac vein stents with 12 mm angioplasty balloon.
Plan:
Okay to restart Coumadin from vascular standpoint
I will left follow-up in our office to discharge instructions
Subjective Data
-
Date of Service: October 21, 2024
Pt seen at bedside this afternoon. Pt offers no complaints at this time. No events overnight. Gerry wrap intact
Objective Data
-
Vital Signs
Temp Pulse Resp BP Pulse Ox
97.7 F 57 18 109/63 99
10/21/24 11:03 10/21/24 11:03 10/21/24 11:03 10/21/24 11:03 10/21/24 11:03
Intake and Output
10/20/24 10/21/24 10/22/24
06:59 06:59 06:59
Intake Total 480 / 480 1720 / 1720
Output Total 600 / 600 2600 / 2600
Balance -120 / -120 -880 / -880
Intake:
Oral fluids 480 / 480 720 / 720
IV fluids (Total) 1000 / 1000
Output:
Urine, Voided 600 / 600 2600 / 2600
Other:
Number of approximated MODERATE 1
amounts of urine
Lab Results
10/21/24 09:27
10/21/24 09:27
Calcium 8.8 mg/dl (8.4-10.2) 10/21/24 09:27
Total Bilirubin 1.2 mg/dl (0.2-1.3) 10/21/24 09:27
AST 17 U/L (17-59) 10/21/24:
ALT < 10 U/L (0-50) 10/21/24:
Alkaline Phosphatase 62 U/L (38-126) 10/21/24 09:
Total Protein 8.0 g/dl (6.3-8.2) 10/21/24:
Albumin 4.1 g/dl (3.5-5.0) 10/21/24 09:
Physical Exam
-
AAOx3
No tachypnea
No tachycardia
Abd soft
LLE gerry wrap intact- removed at bedside, less edematous then yesterday
foot warm, pulse palpable
--- NOTE | 2024-10-21 15:25 | CM ---
Chart reviewed and physical therapy are recommending home health, patient has declined visiting nurses at discharge, physician made aware.
Plan; Home no needs when stable, patient declined visiting nurses.
[2024-10-21 18:11] LABS: APTT 51.0 Sec (23.4-35.0)
[2024-10-21] MEDS: HEPARIN 25000 UNITS/250 ML IV (21:44)
[2024-10-21] MEDS: LIPITOR 80 MG PO (22:05)
[2024-10-21] MEDS: PROTONIX 40 MG PO (22:05)
[2024-10-22] VITALS (8 sets, daily range): BP systolic 113–159; BP diastolic 58–93; BMI 41.0
[2024-10-22 03:00] LABS: APTT 188.2 Sec (23.4-35.0)
[2024-10-22] MEDS: BETAPACE 120 MG PO ×2 (07:45→19:28)
[2024-10-22] MEDS: VITAMIN B-12 1000 MCG PO (07:45)
[2024-10-22] MEDS: LASIX 40 MG PO (07:45)
[2024-10-22] MEDS: NEURONTIN 200 MG PO ×3 (07:45→21:45)
[2024-10-22] MEDS: SINEMET 25-100 1.5 TABLET PO ×3 (07:45→21:45)
[2024-10-22] MEDS: DESENEX/MITRAZOL/ZEASORB 1 APPLIC TOPICAL ×2 (07:50→19:28)
[2024-10-22] MEDS: COUMADIN 3 MG PO (08:18)
[2024-10-22 11:04] LABS: Hematocrit 28.4 % (39.0-52.0); Hemoglobin 8.0 g/dL (13.0-18.0); Mean Corp Hgb Conc. 28.2 g/dL (33.0-37.0); Mean Corpuscular Volume 73.6 fL (80.0-94.0); Platelet Count 239 10^3/uL (130-400); Red Cell Dist. Width 22.2 % (11.5-14.5)
[2024-10-22 11:08] LABS: APTT 80.4 Sec (23.4-35.0)
[2024-10-22 11:24] LABS: ALT (SGPT) < 10 U/L (0-50); AST (SGOT) 13 U/L (17-59); Albumin 3.6 g/dl (3.5-5.0); Alkaline Phosphatase 60 U/L (38-126); Blood Urea Nitrogen 13 mg/dl (9-20); Calcium 8.6 mg/dl (8.4-10.2); Carbon Dioxide 26 mmol/L (22-30); Chloride 104 mmol/L (98-107); Estimated Creatinine Clearance 91 ml/min; Glucose 102 mg/dl (70-99); Potassium 4.1 mmol/L (3.5-5.1); Sodium 135 mmol/L (135-145); Total Protein 7.0 g/dl (6.3-8.2); eGFR > 60.00
--- NOTE | 2024-10-22 13:08 | W.PN.HOSP.TC ---
Today's Communication/Plan
-
Heparin to Coumadin bridging
Assessment / Plan
Assessment / Plan
Physical Exam
General: No Apparent Distress, Appears Chronically Ill and Obese
HEENT: NormoCephalic, Moist mucous membranes and Atraumatic
Respiratory: Clear and Non Labored Respirations; No Wheezes, Rales or Rhonchi
Cardiac: S1/S2 and Regular Rhythm; No Murmur, Rub or Gallop
Breast: Deferred by me
GI: Soft, Non Tender, Non Distended and Normal Bowel Sounds; No Organomegaly
Rectal: Deferred by Provider
Genito-urinary: Deferred by me
Musculoskeletal: No Clubbing, No Cyanosis and Other (LLE edema and erythema )
Skin: Warm and IV/Catheter Site; No Rash
Neuro: Awake, AO x 3 and Nonfocal/grossly intact
Hematologic/Lymphatic: No Lymphadenopathy
Psych: Calm
#LLE edema and erythema
#Stent occlusion
-Suspect postthrombotic syndrome vs acute/chronic stent thrombosis
-U/S LLE (10/17): No LLE DVT; patent left iliac and common femoral vein stents
-CT venogram (10/18): Some thrombus seen in the left femoral venous system caudal to left-sided stent
-Repeat venogram - bilateral iliofemoral venous stents with findings suggesting the possibility of stent occlusion
-Successful aspiration/thrombectomy 10/20
-Hep ggt�bridged to Coumadin with clear evidence of thrombus with Coumadin
-Compression and elevation of lower extremities to reduce swelling/stasis
#atrial fibrillation
EKG: NORMAL SINUS RHYTHM
- continue sotalol and Coumadin, bridging
#HFpEF
- daily weights
- I & Os
- continue furosemide
#Parkinson's disease
- continue carbidopa-levodopa
#CAD
- continue atorvastatin
#GERD / hiatal hernia
- continue omeprazole
#hypertension
#ulcerative colitis
#Hx DVT
#Hx CVA
Code status: full code
DVT prophylaxis: Coumadin
Anticipated Discharge: 24 - 48 hours
Subjective/Interval History
-
Date of Service: October 22, 2024
No acute events
Objective Data
-
Labs:
Laboratory Results
10/22/24 10/22/24 10/22/24
01:35 02:04 10:16
WBC 5.7
Hgb 8.0 L
Hct 28.4 L
Plt Count 239 D
APTT Cancelled 188.2 H* 80.4 H
Sodium 135
Potassium 4.1
Chloride 104
Carbon Dioxide 26
BUN 13
Creatinine 0.9
Glucose 102 H
Calcium 8.6
Total Bilirubin 0.9
AST 13 L
ALT < 10
Alkaline Phosphatase 60
Vital Signs:
Vital Signs
Temp Pulse Resp BP Pulse Ox
98 F 54 16 113/64 98
10/22/24 11:00 10/22/24 11:00 10/22/24 11:00 10/22/24 11:00 10/22/24 11:00
I&O
10/21/24 10/22/24 10/23/24
06:59 06:59 06:59
Intake Total 1720 / 1720 1105 / 1105
Output Total 2600 / 2600
Balance -880 / -880 1105 / 1105
Review of Systems
-
History Source: Patient
All other systems: Reviewed and negative
Physical Exam
-
General: Well Developed
Respiratory: Clear to Auscultation
Cardiac: Regular Rhythm and S1/S2
GI: Soft and Nontender
Musculoskeletal: Edema, Right Lower Extrem and Edema, Left Lower Extrem
Neuro: AO x 3
Psych: Calm
[2024-10-22 15:04] LABS: INR 2.04; PT 23.5 Sec (11.4-14.6)
[2024-10-22] MEDS: HEPARIN 25000 UNITS/250 ML IV (18:29)
[2024-10-22 18:42] LABS: APTT 44.1 Sec (23.4-35.0)
[2024-10-22] MEDS: LIPITOR 80 MG PO (21:45)
[2024-10-22] MEDS: PROTONIX 40 MG PO (21:45)
[2024-10-23 02:29] LABS: APTT 194.9 Sec (23.4-35.0)
[2024-10-23 03:06] VITALS: BP 130/69
[2024-10-23 06:00] VITALS: BMI 40.8
[2024-10-23 07:00] VITALS: BP 146/78
[2024-10-23] MEDS: SINEMET 25-100 1.5 TABLET PO ×3 (07:38→21:45)
[2024-10-23] MEDS: BETAPACE 120 MG PO ×2 (07:39→19:40)
[2024-10-23] MEDS: LASIX 40 MG PO (07:39)
[2024-10-23] MEDS: COUMADIN 3 MG PO (07:39)
[2024-10-23] MEDS: VITAMIN B-12 1000 MCG PO (07:39)
[2024-10-23] MEDS: NEURONTIN 200 MG PO ×3 (07:40→21:45)
[2024-10-23] MEDS: DESENEX/MITRAZOL/ZEASORB 1 APPLIC TOPICAL ×2 (07:40→19:41)
[2024-10-23 10:07] LABS: Hematocrit 29.8 % (39.0-52.0); Hemoglobin 8.5 g/dL (13.0-18.0); Mean Corp Hgb Conc. 28.5 g/dL (33.0-37.0); Mean Corpuscular Volume 74.9 fL (80.0-94.0); Platelet Count 242 10^3/uL (130-400); Red Cell Dist. Width 22.2 % (11.5-14.5)
[2024-10-23 10:09] LABS: INR 1.74; PT 20.6 Sec (11.4-14.6)
[2024-10-23 10:10] LABS: APTT 92.7 Sec (23.4-35.0)
[2024-10-23 10:16] LABS: ALT (SGPT) < 10 U/L (0-50); AST (SGOT) 16 U/L (17-59); Albumin 3.9 g/dl (3.5-5.0); Alkaline Phosphatase 61 U/L (38-126); Blood Urea Nitrogen 14 mg/dl (9-20); Calcium 9.1 mg/dl (8.4-10.2); Carbon Dioxide 25 mmol/L (22-30); Chloride 104 mmol/L (98-107); Estimated Creatinine Clearance 90 ml/min; Glucose 147 mg/dl (70-99); Potassium 4.1 mmol/L (3.5-5.1); Sodium 137 mmol/L (135-145); Total Protein 7.7 g/dl (6.3-8.2); eGFR > 60.00
[2024-10-23 11:15] VITALS: BP 96/56
--- NOTE | 2024-10-23 15:15 | W.PN.HOSP.TC ---
Today's Communication/Plan
-
Heparin to Coumadin bridging
Assessment / Plan
Assessment / Plan
Physical Exam
General: No Apparent Distress, Appears Chronically Ill and Obese
HEENT: NormoCephalic, Moist mucous membranes and Atraumatic
Respiratory: Clear and Non Labored Respirations; No Wheezes, Rales or Rhonchi
Cardiac: S1/S2 and Regular Rhythm; No Murmur, Rub or Gallop
Breast: Deferred by me
GI: Soft, Non Tender, Non Distended and Normal Bowel Sounds; No Organomegaly
Rectal: Deferred by Provider
Genito-urinary: Deferred by me
Musculoskeletal: No Clubbing, No Cyanosis and Other (LLE edema and erythema )
Skin: Warm and IV/Catheter Site; No Rash
Neuro: Awake, AO x 3 and Nonfocal/grossly intact
Hematologic/Lymphatic: No Lymphadenopathy
Psych: Calm
#LLE edema and erythema
#Stent occlusion
-Suspect postthrombotic syndrome vs acute/chronic stent thrombosis
-U/S LLE (10/17): No LLE DVT; patent left iliac and common femoral vein stents
-CT venogram (10/18): Some thrombus seen in the left femoral venous system caudal to left-sided stent
-Repeat venogram - bilateral iliofemoral venous stents with findings suggesting the possibility of stent occlusion
-Successful aspiration/thrombectomy 10/20
-Hep ggt�bridged to Coumadin with clear evidence of thrombus with Coumadin; INR <2 today;
-Compression and elevation of lower extremities to reduce swelling/stasis
#atrial fibrillation
EKG: NORMAL SINUS RHYTHM
- continue sotalol and Coumadin, bridging
#HFpEF
- daily weights
- I & Os
- continue furosemide
#Parkinson's disease
- continue carbidopa-levodopa
#Lightheaded/dizzy
-attributes it to his Parkinsons
-cont to monitor closely
#CAD
- continue atorvastatin
#GERD / hiatal hernia
- continue omeprazole
#hypertension
#ulcerative colitis
#Hx DVT
#Hx CVA
Code status: full code
DVT prophylaxis: Coumadin
Anticipated Discharge: 24 - 48 hours
Subjective/Interval History
-
Date of Service: October 23, 2024
He felt dizzy, lightheaded today
Objective Data
-
Labs:
Laboratory Results
10/23/24 10/23/24
09:41 15:40
WBC 5.4
Hgb 8.5 L
Hct 29.8 L
Plt Count 242
PT 20.6 H
INR 1.74
APTT 92.7 H Pending
Sodium 137
Potassium 4.1
Chloride 104
Carbon Dioxide 25
BUN 14
Creatinine 0.9
Glucose 147 H
Calcium 9.1
Total Bilirubin 0.9
AST 16 L
ALT < 10
Alkaline Phosphatase 61
Vital Signs:
Vital Signs
Temp Pulse Resp BP Pulse Ox
97.8 F 55 18 96/56 98
10/23/24 11:15 10/23/24 11:15 10/23/24 11:15 10/23/24 11:15 10/23/24 11:15
I&O
10/22/24 10/23/24 10/24/24
06:59 06:59 06:59
Intake Total 1105 / 1105 720 / 720
Output Total 2300 / 2300
Balance 1105 / 1105 -1580 / -1580
Review of Systems
-
History Source: Patient
All other systems: Not reviewed unless documented
Data Reviewed
-
CT Scan: Report Reviewed by me
Labs: Labs Reviewed by me
[2024-10-23] MEDS: HEPARIN 25000 UNITS/250 ML IV (15:46)
[2024-10-23 16:26] VITALS: BP 128/78
[2024-10-23 16:35] LABS: APTT 49.2 Sec (23.4-35.0)
[2024-10-23 19:46] VITALS: BP 131/69
[2024-10-23] MEDS: PROTONIX 40 MG PO (21:47)
[2024-10-23] MEDS: LIPITOR 80 MG PO (21:47)
[2024-10-23 23:32] VITALS: BP 116/59
[2024-10-24] VITALS (7 sets, daily range): BP systolic 115–139; BP diastolic 59–76; PULSE 58; O2SAT 98; BMI 40.3
[2024-10-24 00:19] LABS: APTT 108.2 Sec (23.4-35.0)
[2024-10-24 06:47] LABS: Hematocrit 27.2 % (39.0-52.0); Hemoglobin 7.8 g/dL (13.0-18.0); Mean Corp Hgb Conc. 28.7 g/dL (33.0-37.0); Mean Corpuscular Volume 74.1 fL (80.0-94.0); Platelet Count 209 10^3/uL (130-400); Red Cell Dist. Width 22.2 % (11.5-14.5)
[2024-10-24 06:53] LABS: APTT 105.6 Sec (23.4-35.0)
[2024-10-24 07:32] LABS: ALT (SGPT) < 10 U/L (0-50); AST (SGOT) 20 U/L (17-59); Albumin 3.5 g/dl (3.5-5.0); Alkaline Phosphatase 57 U/L (38-126); Blood Urea Nitrogen 16 mg/dl (9-20); Calcium 8.8 mg/dl (8.4-10.2); Carbon Dioxide 26 mmol/L (22-30); Chloride 105 mmol/L (98-107); Estimated Creatinine Clearance 90 ml/min; Glucose 88 mg/dl (70-99); Potassium 4.1 mmol/L (3.5-5.1); Sodium 136 mmol/L (135-145); Total Protein 7.0 g/dl (6.3-8.2); eGFR > 60.00
--- NOTE | 2024-10-24 07:53 | W.PN.HOSP.TC ---
Today's Communication/Plan
-
cont hep Coumadin bridge
Assessment / Plan
Assessment / Plan
Physical Exam
General: No Apparent Distress, Appears comfortable at this time, Obese
HEENT: NormoCephalic, Moist mucous membranes and Atraumatic
Respiratory: Clear and Non Labored Respirations; No Wheezes, Rales or Rhonchi
Cardiac: S1/S2 and Regular Rhythm; No Murmur, Rub or Gallop
GI: Soft, Non Tender, Non Distended and Normal Bowel Sounds; No Organomegaly
Genito-urinary: Scrotal edema noted
Musculoskeletal: No Clubbing, No Cyanosis, LLE GRICEL compression bandaging in place
Neuro: AOx3 conversant coherent
Psych: Calm
69M afib Eliquis CHF CVA HTN HLD Cerebral Palsy Parkinson here for LLE swelling.
#LLE edema and erythema
#Stent occlusion
-Suspect postthrombotic syndrome vs acute/chronic stent thrombosis
-U/S LLE (10/17): No LLE DVT; patent left iliac and common femoral vein stents
-CT venogram (10/18): Some thrombus seen in the left femoral venous system caudal to left-sided stent
-Repeat venogram - bilateral iliofemoral venous stents with findings suggesting the possibility of stent occlusion
Vascular intervention 10/20
Duplex assisted cannulation of left popliteal vein.
Ascending left lower extremity venogram and central venogram.
Penumbra mechanical thrombectomy of left common femoral vein and iliac vein stent with Penumbra Flash 16 catheter.
Balloon angioplasty of left iliac vein stents with 12 mm angioplasty balloon
-Hep ggt�bridged to Coumadin with clear evidence of thrombus with Coumadin; goal INR 2-3
-Compression and elevation of lower extremities to reduce swelling/stasis
#atrial fibrillation
EKG: NORMAL SINUS RHYTHM
- continue sotalol and Coumadin, bridging
#HFpEF
- daily weights
- I & Os
- continue furosemide
#Parkinson's disease
- continue carbidopa-levodopa
#Lightheaded/dizzy
-attributes it to his Parkinson
-cont to monitor closely
#CAD
- continue atorvastatin
#GERD / hiatal hernia
- continue omeprazole
#Scrotal Edema
Urology eval appreciated
Check Testicular US
#hypertension
#ulcerative colitis
#Hx DVT
#Hx CVA
PT/OT eval appreciated Home Health
Code status: full code
DVT prophylaxis: hep gtt Coumadin
I spent a total of 45 minutes with the patient or on the floor. More than 50% of this time involved counseling and coordination of care.
Anticipated Discharge: 24 - 48 hours
Subjective/Interval History
-
Date of Service: October 24, 2024
Reporting scrotal edema and persistent LLE swelling
Objective Data
-
Labs:
Laboratory Results
10/24/24 10/24/24
00:01 06:31
WBC 6.1
Hgb 7.8 L
Hct 27.2 L
Plt Count 209
APTT 108.2 H 105.6 H
Sodium 136
Potassium 4.1
Chloride 105
Carbon Dioxide 26
BUN 16
Creatinine 0.9
Glucose 88
Calcium 8.8
Total Bilirubin 0.9
AST 20
ALT < 10
Alkaline Phosphatase 57
Vital Signs:
Vital Signs
Temp Pulse Resp BP Pulse Ox
98.1 F 61 18 136/75 99
10/24/24 07:15 10/24/24 07:15 10/24/24 07:15 10/24/24 07:15 10/24/24 07:15
I&O
10/23/24 10/24/24 10/25/24
06:59 06:59 06:59
Intake Total 720 / 720 1200 / 1200
Output Total 2300 / 2300 2350 / 2350
Balance -1580 / -1580 -1150 / -1150
[2024-10-24] MEDS: SINEMET 25-100 1.5 TABLET PO ×3 (08:38→21:10)
[2024-10-24] MEDS: BETAPACE 120 MG PO ×2 (08:39→21:09)
[2024-10-24] MEDS: VITAMIN B-12 1000 MCG PO (08:39)
[2024-10-24] MEDS: LASIX 40 MG PO (08:39)
[2024-10-24] MEDS: NEURONTIN 200 MG PO ×3 (08:40→21:10)
[2024-10-24] MEDS: COUMADIN 3 MG PO (08:43)
[2024-10-24] MEDS: DESENEX/MITRAZOL/ZEASORB 1 APPLIC TOPICAL ×2 (08:43→21:12)
[2024-10-24 09:55] LABS: INR 1.76; PT 20.7 Sec (11.4-14.6)
--- NOTE | 2024-10-24 10:07 | CM ---
Patient seen at bedside on . Patient stated that he did not have any further needs at this time and he plans on returning home with no needs. Therapy recommending home VN but patient has declined VN. Patient stated his family will provide
transportation home. CM will continue to follow for discharge planning needs.
Plan; home with no needs watch for VN if patient accepts and therapy continues to recommend.
[2024-10-24] MEDS: HEPARIN 25000 UNITS/250 ML IV (10:50)
--- NOTE | 2024-10-24 18:09 | W.PN.URO.CBU ---
Today's Communication / Plan
-
elevate scrotum whn in bed if large enough try jock strap when ambulatory
Assessment / Plan
-
gu manifestation of systemic disease ie dependent vascular edema and stasis suggest elevation on pillow and / or lambs wool
Diagnosis
-
Date of Service: October 24, 2024
-
Patient Diagnosis:scrotal painless edema in pt with h/o thrombus of pelvis and bilateral lower extremity edema post op thrombectomy
Post Op Day:
Subjective
-
swollen sct=rotum amd legs no injury no pain
Objective
-
Vital Signs
Temp Pulse Resp BP Pulse Ox
97.9 F 63 16 128/76 99
10/24/24 15:10 10/24/24 15:10 10/24/24 15:10 10/24/24 15:10 10/24/24 15:10
Intake and Output
10/23/24 10/24/24 10/25/24
06:59 06:59 06:59
Intake Total 720 / 720 1200 / 1200 960 / 960
Output Total 2300 / 2300 2350 / 2350 1275 / 1275
Balance -1580 / -1580 -1150 / -1150 -315 / -315
Intake:
Oral fluids 720 / 720 1200 / 1200 960 / 960
IV fluids (Total) 0 / 0
IV piggybacks 0 / 0
Output:
Urine, Voided 2300 / 2300 2350 / 2350 1275 / 1275
Laboratory Results
10/24/24 06:31
10/24/24 06:31
Review of Systems
-
: No Symptoms
Musculoskeletal: Edema
Physical Exam
-
General - well developed, well nourished, no acute distress
Chest - clear bilaterally
Abdomen - soft, non-tender, positive bowel sounds, no CVAT, no incisional pain or distention
Genitalia - thoird space fluid no pain no hydroecels non tender
Rectal - normal
Skin - warm & dry with no rash
Neuro - AOx3, no motor deficits
Extremities - no clubbing, no cyanosis, bilateral left over rt pitting edema
Incision - clean, dry
Dressing - clean, dry, intact
Care Review
Data Reviewed
Discussed with: Hospitalist and Nursing
CT Scan: Image Pers Reviewed
Ultrasound: Image Pers Reviewed
[2024-10-24] MEDS: LIPITOR 80 MG PO (21:10)
[2024-10-24] MEDS: PROTONIX 40 MG PO (21:10)
[2024-10-25 03:00] VITALS: BP 106/54
[2024-10-25 03:14] VITALS: BMI 40.4
[2024-10-25] MEDS: HEPARIN 25000 UNITS/250 ML IV ×2 (04:46→22:40)
[2024-10-25] MEDS: VITAMIN B-12 1000 MCG PO (07:23)
[2024-10-25] MEDS: LASIX 40 MG PO (07:23)
[2024-10-25] MEDS: NEURONTIN 200 MG PO ×3 (07:23→20:56)
[2024-10-25] MEDS: SINEMET 25-100 1.5 TABLET PO ×3 (07:23→20:57)
[2024-10-25] MEDS: BETAPACE 120 MG PO ×2 (07:24→20:59)
[2024-10-25] MEDS: DESENEX/MITRAZOL/ZEASORB 1 APPLIC TOPICAL ×2 (07:25→21:03)
[2024-10-25] MEDS: COUMADIN 3 MG PO (07:27)
[2024-10-25 07:56] LABS: Hematocrit 31.5 % (39.0-52.0); Hemoglobin 8.9 g/dL (13.0-18.0); Mean Corp Hgb Conc. 28.3 g/dL (33.0-37.0); Mean Corpuscular Volume 73.8 fL (80.0-94.0); Platelet Count 236 10^3/uL (130-400); Red Cell Dist. Width 22.3 % (11.5-14.5)
[2024-10-25 08:00] VITALS: BP 144/85
[2024-10-25 08:01] LABS: ALT (SGPT) < 10 U/L (0-50); AST (SGOT) 17 U/L (17-59); Albumin 4.1 g/dl (3.5-5.0); Alkaline Phosphatase 66 U/L (38-126); Blood Urea Nitrogen 15 mg/dl (9-20); Calcium 9.1 mg/dl (8.4-10.2); Carbon Dioxide 27 mmol/L (22-30); Chloride 103 mmol/L (98-107); Estimated Creatinine Clearance 90 ml/min; Glucose 86 mg/dl (70-99); Potassium 4.2 mmol/L (3.5-5.1); Sodium 138 mmol/L (135-145); Total Protein 7.8 g/dl (6.3-8.2); eGFR > 60.00
[2024-10-25 08:02] LABS: APTT 77.0 Sec (23.4-35.0)
--- NOTE | 2024-10-25 10:46 | W.PN.URO.CBU ---
Today's Communication / Plan
-
no gu intervetin
Assessment / Plan
-
gu manifestation of systemic disease ie dependent vascular edema and stasis suggest elevation on pillow and / or lambs wool
Diagnosis
-
Date of Service: October 25, 2024
-
Patient Diagnosis:
Post Op Day:
Patient Diagnosis:scrotal painless edema in pt with h/o thrombus of pelvis and bilateral lower extremity edema post op thrombectomy
Post Op Day:
Subjective
-
no schanges
Objective
-
Vital Signs
Temp Pulse Resp BP Pulse Ox
97.7 F 65 20 144/85 97
10/25/24 03:00 10/25/24 08:00 10/25/24 08:00 10/25/24 08:00 10/25/24 08:00
Intake and Output
10/24/24 10/25/24 10/26/24
06:59 06:59 06:59
Intake Total 1200 / 1200 960 / 960
Output Total 2350 / 2350 2074
Balance -1150 / -1150 -1115 / -1115
Intake:
Oral fluids 1200 / 1200 960 / 960
IV fluids (Total) 0 / 0
IV piggybacks 0 / 0
Output:
Urine, Voided 0 / 2350 2074
Laboratory Results
10/25/24 06:39
10/25/24 06:39
Review of Systems
-
: Other
Physical Exam
-
General - well developed, well nourished, no acute distress
Chest - clear bilaterally
Abdomen - soft, non-tender, positive bowel sounds, no CVAT, no incisional pain or distention
Genitalia - dependent edema scrotum
Rectal - normal
Skin - warm & dry with no rash
Neuro - AOx3, no motor deficits
Extremities - no clubbing, no cyanosis, no edema
Incision - clean, dry
Dressing - clean, dry, intact
--- NOTE | 2024-10-25 11:09 | W.PN.HOSP.TC ---
Today's Communication/Plan
-
cont hep coumadin bridge goal INR 2-3
PT/OT
discharge planning
Assessment / Plan
Assessment / Plan
Physical Exam
General: No Apparent Distress, Appears comfortable at this time, Obese
HEENT: NormoCephalic, Moist mucous membranes and Atraumatic
Respiratory: Clear and Non Labored Respirations; No Wheezes, Rales or Rhonchi
Cardiac: S1/S2 and Regular Rhythm; No Murmur, Rub or Gallop
GI: Soft, Non Tender, Non Distended and Normal Bowel Sounds; No Organomegaly
Genito-urinary: Scrotal edema noted
Musculoskeletal: No Clubbing, No Cyanosis, LLE GRICEL compression bandaging in place
Neuro: AOx3 conversant coherent
Psych: Calm
69M afib Eliquis CHF CVA HTN HLD Cerebral Palsy Parkinson here for LLE swelling.
#LLE edema and erythema
#Stent occlusion
-Suspect postthrombotic syndrome vs acute/chronic stent thrombosis
-U/S LLE (10/17): No LLE DVT; patent left iliac and common femoral vein stents
-CT venogram (10/18): Some thrombus seen in the left femoral venous system caudal to left-sided stent
-Repeat venogram - bilateral iliofemoral venous stents with findings suggesting the possibility of stent occlusion
Vascular intervention 10/20
Duplex assisted cannulation of left popliteal vein.
Ascending left lower extremity venogram and central venogram.
Penumbra mechanical thrombectomy of left common femoral vein and iliac vein stent with Penumbra Flash 16 catheter.
Balloon angioplasty of left iliac vein stents with 12 mm angioplasty balloon
-Hep ggt�bridged to Coumadin with clear evidence of thrombus with Coumadin; goal INR 2-3
-Compression and elevation of lower extremities to reduce swelling/stasis
#atrial fibrillation
EKG: NORMAL SINUS RHYTHM
- continue sotalol and Coumadin, bridging
#HFpEF
- daily weights
- I & Os
- continue furosemide
#Parkinson's disease
- continue carbidopa-levodopa
#Lightheaded/dizzy
-attributes it to his Parkinson
-cont to monitor closely
#CAD
- continue atorvastatin
#GERD / hiatal hernia
- continue omeprazole
#Scrotal Edema
Urology eval appreciated no acute intervention recommended, supportive care elevation on pillow and/or lambs wool
Testicular US results noted
#hypertension
#ulcerative colitis
#Hx DVT
#Hx CVA
PT/OT eval appreciated Home Health (patient however declines)
Code status: full code
DVT prophylaxis: hep gtt Coumadin
I spent a total of 38 minutes with the patient or on the floor. More than 50% of this time involved counseling and coordination of care.
Anticipated Discharge: Within 24 hours
Subjective/Interval History
-
Date of Service: October 25, 2024
No acute distress, sitting up comfortably in chair. Notes some improvement LLE swelling.
Objective Data
-
Labs:
Laboratory Results
10/25/24
06:39
WBC 6.7
Hgb 8.9 L
Hct 31.5 L
Plt Count 236
APTT 77.0 H
Sodium 138
Potassium 4.2
Chloride 103
Carbon Dioxide 27
BUN 15
Creatinine 0.9
Glucose 86
Calcium 9.1
Total Bilirubin 1.2
AST 17
ALT < 10
Alkaline Phosphatase 66
Vital Signs:
Vital Signs
Temp Pulse Resp BP Pulse Ox
97.7 F 65 20 144/85 97
10/25/24 03:00 10/25/24 08:00 10/25/24 08:00 10/25/24 08:00 10/25/24 08:00
I&O
10/24/24 10/25/24 10/26/24
06:59 06:59 06:59
Intake Total 1200 / 1200 960 / 960
Output Total 0 / 2350 2074
Balance -1150 / -1150 -1115 / -1115
[2024-10-25 11:23] VITALS: BP 125/71
[2024-10-25 12:03] LABS: INR 1.70; PT 20.2 Sec (11.4-14.6)
--- NOTE | 2024-10-25 13:01 | CM ---
Patient to return to home no needs when stable, patient is declined visiting nurses, physician made aware.
Plan; Home no needs when stable.
[2024-10-25 14:48] VITALS: BP 145/82
[2024-10-25 19:00] VITALS: BP 124/70
[2024-10-25] MEDS: PROTONIX 40 MG PO (20:58)
[2024-10-25] MEDS: LIPITOR 80 MG PO (20:58)
[2024-10-25 23:00] VITALS: BP 117/71
[2024-10-26 03:00] VITALS: BP 132/77
--- NOTE | 2024-10-26 03:16 | DOWNTIME ---
There was a [employer] Downtime on 10/26/2024 from 0100 to 10/26/2024 at 0215. Downtime documentation of patient's care, including medication administrations, has been reconciled in the electronic record per guidelines. Refer to the
patient's paper chart under the miscellaneous tab to see printed paper medication records and downtime forms.
[2024-10-26 03:33] VITALS: BMI 40.6
[2024-10-26] MEDS: SINEMET 25-100 1.5 TABLET PO ×3 (07:27→21:25)
[2024-10-26] MEDS: VITAMIN B-12 1000 MCG PO (07:27)
[2024-10-26] MEDS: BETAPACE 120 MG PO ×2 (07:28→19:44)
[2024-10-26] MEDS: NEURONTIN 200 MG PO ×3 (07:28→21:24)
[2024-10-26] MEDS: COUMADIN 3 MG PO (07:28)
--- NOTE | 2024-10-26 07:28 | W.PN.HOSP.TC ---
Today's Communication/Plan
-
cont hep coumadin bridge
Assessment / Plan
Assessment / Plan
Physical Exam
General: No Apparent Distress, Appears comfortable at this time, Obese
HEENT: NormoCephalic, Moist mucous membranes and Atraumatic
Respiratory: Clear and Non Labored Respirations; No Wheezes, Rales or Rhonchi
Cardiac: S1/S2 and Regular Rhythm; No Murmur, Rub or Gallop
GI: Soft, Non Tender, Non Distended and Normal Bowel Sounds; No Organomegaly
Genito-urinary: Scrotal edema noted
Musculoskeletal: No Clubbing, No Cyanosis, LLE GRICLE compression bandaging in place
Neuro: AOx3 conversant coherent
Psych: Calm
69M afib Eliquis CHF CVA HTN HLD Cerebral Palsy Parkinson here for LLE swelling.
#LLE edema and erythema
#Stent occlusion
-Suspect postthrombotic syndrome vs acute/chronic stent thrombosis
-U/S LLE (10/17): No LLE DVT; patent left iliac and common femoral vein stents
-CT venogram (10/18): Some thrombus seen in the left femoral venous system caudal to left-sided stent
-Repeat venogram - bilateral iliofemoral venous stents with findings suggesting the possibility of stent occlusion
Vascular intervention 10/20
Duplex assisted cannulation of left popliteal vein.
Ascending left lower extremity venogram and central venogram.
Penumbra mechanical thrombectomy of left common femoral vein and iliac vein stent with Penumbra Flash 16 catheter.
Balloon angioplasty of left iliac vein stents with 12 mm angioplasty balloon
-Hep ggt�bridged to Coumadin with clear evidence of thrombus with Coumadin; goal INR 2-3
-Compression and elevation of lower extremities to reduce swelling/stasis
#atrial fibrillation
EKG: NORMAL SINUS RHYTHM
- continue sotalol and Coumadin, bridging
#HFpEF
- daily weights
- I & Os
- continue furosemide
#Parkinson's disease
- continue carbidopa-levodopa
#Lightheaded/dizzy
-attributes it to his Parkinson
-cont to monitor closely
#CAD
- continue atorvastatin
#GERD / hiatal hernia
- continue omeprazole
#Scrotal Edema
Urology eval appreciated no acute intervention recommended, supportive care elevation on pillow and/or lambs wool
Testicular US results noted
#hypertension
#ulcerative colitis
#Hx DVT
#Hx CVA
PT/OT eval appreciated Home Health (patient however declines)
Code status: full code
DVT prophylaxis: hep gtt Coumadin
I spent a total of 36 minutes with the patient or on the floor. More than 50% of this time involved counseling and coordination of care.
Anticipated Discharge: Within 24 hours
Subjective/Interval History
-
Date of Service: October 26, 2024
No acute distress, sitting up comfortably in chair.
Objective Data
-
Labs:
Laboratory Results
10/26/24
06:00
WBC Pending
Hgb Pending
Hct Pending
Plt Count Pending
PT Pending
INR Pending
APTT Pending
Sodium Pending
Potassium Pending
Chloride Pending
Carbon Dioxide Pending
BUN Pending
Creatinine Pending
Glucose Pending
Calcium Pending
Total Bilirubin Pending
AST Pending
ALT Pending
Alkaline Phosphatase Pending
Vital Signs:
Vital Signs
Temp Pulse Resp BP Pulse Ox
97.5 F 63 18 132/77 96
10/26/24 03:00 10/26/24 03:00 10/26/24 03:00 10/26/24 03:00 10/26/24 03:00
I&O
10/25/24 10/26/24 10/27/24
06:59 06:59 06:59
Intake Total 960 / 960 840 / 840
Output Total 2074 189 / 189
Balance -1115 / -1115 -1050 / -1050
[2024-10-26] MEDS: LASIX 40 MG PO (07:29)
[2024-10-26] MEDS: DESENEX/MITRAZOL/ZEASORB 1 APPLIC TOPICAL ×2 (07:31→19:44)
[2024-10-26 07:49] VITALS: BP 154/83
[2024-10-26 08:34] LABS: Hematocrit 29.8 % (39.0-52.0); Hemoglobin 8.4 g/dL (13.0-18.0); Mean Corp Hgb Conc. 28.2 g/dL (33.0-37.0); Mean Corpuscular Volume 72.9 fL (80.0-94.0); Platelet Count 242 10^3/uL (130-400); Red Cell Dist. Width 22.1 % (11.5-14.5)
[2024-10-26 08:36] LABS: INR 1.90; PT 22.3 Sec (11.4-14.6)
[2024-10-26 08:38] LABS: APTT 113.3 Sec (23.4-35.0)
[2024-10-26 09:52] LABS: ALT (SGPT) < 10 U/L (0-50); AST (SGOT) 15 U/L (17-59); Albumin 3.9 g/dl (3.5-5.0); Alkaline Phosphatase 62 U/L (38-126); Blood Urea Nitrogen 16 mg/dl (9-20); Calcium 9.2 mg/dl (8.4-10.2); Carbon Dioxide 26 mmol/L (22-30); Chloride 104 mmol/L (98-107); Estimated Creatinine Clearance 90 ml/min; Glucose 91 mg/dl (70-99); Potassium 4.2 mmol/L (3.5-5.1); Sodium 136 mmol/L (135-145); Total Protein 7.6 g/dl (6.3-8.2); eGFR > 60.00
--- NOTE | 2024-10-26 11:06 | CM ---
Home no needs, patient declined visiting nurses.
Plan; Home no needs.
[2024-10-26 11:17] VITALS: BP 120/64
--- NOTE | 2024-10-26 14:27 | W.PN.URO.CBU ---
Today's Communication / Plan
-
no gu changes
Assessment / Plan
-
gu manifestation of systemic disease ie dependent vascular edema and stasis suggest elevation on pillow and / or lambs wool
Diagnosis
-
Date of Service: October 26, 2024
-
Patient Diagnosis:
Post Op Day:
Patient Diagnosis:
Post Op Day:
Patient Diagnosis:scrotal painless edema in pt with h/o thrombus of pelvis and bilateral lower extremity edema post op thrombectomy
Post Op Day:
Subjective
-
no changes
Objective
-
Vital Signs
Temp Pulse Resp BP Pulse Ox
98.2 F 55 20 120/64 97
10/26/24 11:17 10/26/24 11:17 10/26/24 11:17 10/26/24 11:17 10/26/24 11:17
Intake and Output
10/25/24 10/26/24 10/27/24
06:59 06:59 06:59
Intake Total 960 / 960 840 / 840
Output Total 2074 1890 / 1890 300 / 300
Balance -1115 / -1115 -1050 / -1050 -300 / -300
Intake:
Oral fluids 960 / 960 840 / 840
Output:
Urine, Voided 2074 1890 / 1890 300 / 300
Laboratory Results
10/26/24 08:11
10/26/24 08:11
Review of Systems
-
: Other (scrotal swelling)
Physical Exam
-
General - well developed, well nourished, no acute distress
Chest - clear bilaterally
Abdomen - soft, non-tender, positive bowel sounds, no CVAT, no incisional pain or distention
Genitalia - normal
Rectal - normal
Skin - warm & dry with no rash
Neuro - AOx3, no motor deficits
Extremities - no clubbing, no cyanosis, no edema
Incision - clean, dry
Dressing - clean, dry, intact
[2024-10-26 15:25] LABS: APTT 95.8 Sec (23.4-35.0)
[2024-10-26 15:44] VITALS: BP 112/74
[2024-10-26] MEDS: HEPARIN 25000 UNITS/250 ML IV (19:01)
[2024-10-26 19:31] VITALS: BP 136/76
[2024-10-26 21:22] LABS: APTT 75.3 Sec (23.4-35.0)
[2024-10-26] MEDS: PROTONIX 40 MG PO (21:25)
[2024-10-26] MEDS: LIPITOR 80 MG PO (21:25)
[2024-10-26 23:45] VITALS: BP 125/64
[2024-10-27] VITALS (8 sets, daily range): BP systolic 110–150; BP diastolic 59–83; PULSE 60–66; O2SAT 99; BMI 40.3
--- NOTE | 2024-10-27 07:14 | W.PN.HOSP.TC ---
Today's Communication/Plan
-
cont hep Coumadin bridge
discussed bridging with Lovenox however patient declines, endorses living with grandchildren and concern about having needles in house
Assessment / Plan
Assessment / Plan
Physical Exam
General: No Apparent Distress, Appears comfortable at this time, Obese
HEENT: NormoCephalic, Moist mucous membranes and Atraumatic
Respiratory: Clear and Non Labored Respirations; No Wheezes, Rales or Rhonchi
Cardiac: S1/S2 and Regular Rhythm; No Murmur, Rub or Gallop
GI: Soft, Non Tender, Non Distended and Normal Bowel Sounds; No Organomegaly
Genito-urinary: Scrotal edema noted
Musculoskeletal: No Clubbing, No Cyanosis, LLE GRICEL compression bandaging in place
Neuro: AOx3 conversant coherent
Psych: Calm
69M afib Eliquis CHF CVA HTN HLD Cerebral Palsy Parkinson here for LLE swelling.
#LLE edema and erythema
#Stent occlusion
-Suspect postthrombotic syndrome vs acute/chronic stent thrombosis
-U/S LLE (10/17): No LLE DVT; patent left iliac and common femoral vein stents
-CT venogram (10/18): Some thrombus seen in the left femoral venous system caudal to left-sided stent
-Repeat venogram - bilateral iliofemoral venous stents with findings suggesting the possibility of stent occlusion
Vascular intervention 10/20
Duplex assisted cannulation of left popliteal vein.
Ascending left lower extremity venogram and central venogram.
Penumbra mechanical thrombectomy of left common femoral vein and iliac vein stent with Penumbra Flash 16 catheter.
Balloon angioplasty of left iliac vein stents with 12 mm angioplasty balloon
-Hep ggt�bridged to Coumadin with clear evidence of thrombus with Coumadin; goal INR 2-3
-discussed bridging with Lovenox however patient declines, endorses living with grandchildren and concern about having needles in house,
-Compression and elevation of lower extremities to reduce swelling/stasis
#atrial fibrillation
EKG: NORMAL SINUS RHYTHM
- continue sotalol and Coumadin, bridging
#HFpEF
- daily weights
- I & Os
- continue furosemide
#Parkinson's disease
- continue carbidopa-levodopa
#Lightheaded/dizzy
-attributes it to his Parkinson
-cont to monitor closely
#CAD
- continue atorvastatin
#GERD / hiatal hernia
- continue omeprazole
#Scrotal Edema
Urology eval appreciated no acute intervention recommended, supportive care elevation on pillow and/or lambs wool
Testicular US results noted
#hypertension
#ulcerative colitis
#Hx DVT
#Hx CVA
PT/OT eval appreciated Home Health (patient however declines)
Code status: full code
DVT prophylaxis: hep gtt Coumadin
I spent a total of 36 minutes with the patient or on the floor. More than 50% of this time involved counseling and coordination of care.
Anticipated Discharge: Within 24 hours
Subjective/Interval History
-
Date of Service: October 27, 2024
no acute distress sitting up comfortably in chair. Lower ext swelling improved.
Objective Data
-
Labs:
Laboratory Results
10/26/24 10/27/24
21:04 06:00
WBC Pending
Hgb Pending
Hct Pending
Plt Count Pending
PT Pending
INR Pending
APTT 75.3 H Pending
Vital Signs:
Vital Signs
Temp Pulse Resp BP Pulse Ox
97.8 F 61 20 128/62 96
10/27/24 03:11 10/27/24 03:11 10/27/24 03:11 10/27/24 03:11 10/27/24 03:11
I&O
10/26/24 10/27/24 10/28/24
06:59 06:59 06:59
Intake Total 840 / 840 720 / 720
Output Total 1890 / 1890 2225 / 2225
Balance -1050 / -1050 -1505 / -1505
[2024-10-27] MEDS: SINEMET 25-100 1.5 TABLET PO ×3 (08:02→21:43)
[2024-10-27] MEDS: VITAMIN B-12 1000 MCG PO (08:02)
[2024-10-27] MEDS: BETAPACE 120 MG PO ×2 (08:02→19:13)
[2024-10-27] MEDS: NEURONTIN 200 MG PO ×3 (08:02→21:45)
[2024-10-27] MEDS: COUMADIN 3 MG PO (08:03)
[2024-10-27] MEDS: LASIX 40 MG PO (08:03)
[2024-10-27] MEDS: DESENEX/MITRAZOL/ZEASORB 1 APPLIC TOPICAL ×2 (08:07→19:13)
[2024-10-27 09:09] LABS: INR 1.80; PT 21.4 Sec (11.4-14.6)
[2024-10-27 09:10] LABS: Hematocrit 28.9 % (39.0-52.0); Hemoglobin 8.2 g/dL (13.0-18.0); Mean Corp Hgb Conc. 28.4 g/dL (33.0-37.0); Mean Corpuscular Volume 73.7 fL (80.0-94.0); Platelet Count 251 10^3/uL (130-400); Red Cell Dist. Width 22.1 % (11.5-14.5)
[2024-10-27 09:11] LABS: APTT 60.8 Sec (23.4-35.0)
--- NOTE | 2024-10-27 12:34 | CM ---
Home with family when stable, no needs.
Plan; Home no needs.
[2024-10-27] MEDS: HEPARIN 25000 UNITS/250 ML IV (13:21)
[2024-10-27 16:33] LABS: APTT 116.8 Sec (23.4-35.0)
[2024-10-27] MEDS: LIPITOR 80 MG PO (21:44)
[2024-10-27] MEDS: PROTONIX 40 MG PO (21:44)
[2024-10-28] VITALS (7 sets, daily range): BP systolic 100–141; BP diastolic 55–78; PULSE 64; O2SAT 98; BMI 40.3
[2024-10-28 00:33] LABS: APTT 80.6 Sec (23.4-35.0)
[2024-10-28 07:31] LABS: INR 1.85; PT 21.8 Sec (11.4-14.6)
[2024-10-28] MEDS: HEPARIN 25000 UNITS/250 ML IV (07:32)
[2024-10-28 07:33] LABS: APTT 92.2 Sec (23.4-35.0); Hematocrit 27.3 % (39.0-52.0); Hemoglobin 7.6 g/dL (13.0-18.0); Mean Corp Hgb Conc. 27.8 g/dL (33.0-37.0); Mean Corpuscular Volume 73.0 fL (80.0-94.0); Platelet Count 240 10^3/uL (130-400); Red Cell Dist. Width 21.9 % (11.5-14.5)
[2024-10-28] MEDS: NEURONTIN 200 MG PO ×3 (07:36→21:41)
[2024-10-28] MEDS: SINEMET 25-100 1.5 TABLET PO ×3 (07:36→21:41)
[2024-10-28] MEDS: VITAMIN B-12 1000 MCG PO (07:37)
[2024-10-28] MEDS: COUMADIN 4.5 MG PO (07:38)
[2024-10-28] MEDS: BETAPACE 120 MG PO ×2 (07:41→20:09)
[2024-10-28] MEDS: LASIX 40 MG PO (07:41)
[2024-10-28] MEDS: DESENEX/MITRAZOL/ZEASORB 1 APPLIC TOPICAL ×2 (07:43→20:10)
--- NOTE | 2024-10-28 08:34 | W.PN.HOSP.TC ---
Today's Communication/Plan
-
heparin Coumadin bridge
Iron supplementation
Assessment / Plan
Assessment / Plan
Physical Exam
General: No Apparent Distress, Appears comfortable at this time, pallor Obese
HEENT: NormoCephalic, Moist mucous membranes and Atraumatic
Respiratory: Clear and Non Labored Respirations; No Wheezes, Rales or Rhonchi
Cardiac: S1/S2 and Regular Rhythm; No Murmur, Rub or Gallop
GI: Soft, Non Tender, Non Distended and Normal Bowel Sounds; No Organomegaly
Genito-urinary: Scrotal edema noted
Musculoskeletal: No Clubbing, No Cyanosis, LLE GRICEL compression bandaging in place
Neuro: AOx3 conversant coherent
Psych: Calm
69M afib Eliquis CHF CVA HTN HLD Cerebral Palsy Parkinson here for LLE swelling.
#LLE edema and erythema
#Stent occlusion
-Suspect postthrombotic syndrome vs acute/chronic stent thrombosis
-U/S LLE (10/17): No LLE DVT; patent left iliac and common femoral vein stents
-CT venogram (10/18): Some thrombus seen in the left femoral venous system caudal to left-sided stent
-Repeat venogram - bilateral iliofemoral venous stents with findings suggesting the possibility of stent occlusion
Vascular intervention 10/20
Duplex assisted cannulation of left popliteal vein.
Ascending left lower extremity venogram and central venogram.
Penumbra mechanical thrombectomy of left common femoral vein and iliac vein stent with Penumbra Flash 16 catheter.
Balloon angioplasty of left iliac vein stents with 12 mm angioplasty balloon
-Hep ggt�bridged to Coumadin with clear evidence of thrombus with Coumadin; goal INR 2-3
-discussed bridging with Lovenox however patient declines, endorses living with grandchildren and concern about having needles in house,
-Compression and elevation of lower extremities to reduce swelling/stasis
Iron Deficiency Anemia
-IV iron supplementation
#atrial fibrillation
EKG: NORMAL SINUS RHYTHM
- continue sotalol and Coumadin, bridging
#HFpEF
- daily weights
- I & Os
- continue furosemide
#Parkinson's disease
- continue carbidopa-levodopa
#Lightheaded/dizzy
-attributes it to his Parkinson
-cont to monitor closely
#CAD
- continue atorvastatin
#GERD / hiatal hernia
- continue omeprazole
#Scrotal Edema
Urology eval appreciated no acute intervention recommended, supportive care elevation on pillow and/or lambs wool
Testicular US results noted
#hypertension
#ulcerative colitis
#Hx DVT
#Hx CVA
PT/OT eval appreciated Home Health (patient however declines)
Code status: full code
DVT prophylaxis: hep gtt Coumadin
I spent a total of 36 minutes with the patient or on the floor. More than 50% of this time involved counseling and coordination of care.
Anticipated Discharge: Within 24 hours
Subjective/Interval History
-
Date of Service: October 28, 2024
No acute distress, appears comfortable. Lower ext edema persists. Denies new acute issues.
Objective Data
-
Labs:
Laboratory Results
10/27/24 10/28/24
23:43 06:38
WBC 5.9
Hgb 7.6 L
Hct 27.3 L
Plt Count 240
PT 21.8 H
INR 1.85
APTT 80.6 H 92.2 H
Vital Signs:
Vital Signs
Temp Pulse Resp BP Pulse Ox
98.5 F 60 20 141/68 94
10/28/24 07:20 10/28/24 07:41 10/28/24 07:20 10/28/24 07:41 10/28/24 07:20
I&O
10/27/24 10/28/24 10/29/24
06:59 06:59 06:59
Intake Total 720 / 720 480 / 480
Output Total 2225 / 2225 1625 / 1625
Balance -1505 / -1505 -1145 / -1145
--- NOTE | 2024-10-28 12:25 | CM ---
Home at discharge, patient has declined visiting nurses at discharge.
Plan; Home with family supports, patient has declined visiting nurse services.
[2024-10-28 12:26] LABS: Iron 31 ug/dl (49-181)
[2024-10-28 12:37] LABS: Total Iron Binding Capacity 387 ug/dl (261-462)
[2024-10-28 16:59] LABS: Ferritin 18.9 ng/ml (17.9-464.0)
[2024-10-28 17:30] LABS: Folate 7.2 ng/ml (2.76-20)
[2024-10-28] MEDS: LIPITOR 80 MG PO (20:10)
[2024-10-28] MEDS: PROTONIX 40 MG PO (20:10)
[2024-10-29] MEDS: HEPARIN 25000 UNITS/250 ML IV ×2 (00:49→18:02)
[2024-10-29 03:02] VITALS: BP 121/55
[2024-10-29 03:10] VITALS: BP 102/48
[2024-10-29 06:00] VITALS: BMI 40.1
[2024-10-29 07:20] VITALS: BP 146/74
--- NOTE | 2024-10-29 07:41 | W.PN.HOSP.TC ---
Today's Communication/Plan
-
Coumadin on hold, once baby aspirin 81 mg
Brain MRI, prn ativan for MRI study
cont hep gtt
monitor INR
IV Iron infusion
monitor H&H
Assessment / Plan
Assessment / Plan
Physical Exam
General: No Apparent Distress, Appears comfortable at this time, pallor Obese
HEENT: NormoCephalic, Moist mucous membranes and Atraumatic
Respiratory: Clear and Non Labored Respirations; No Wheezes, Rales or Rhonchi
Cardiac: S1/S2 and Regular Rhythm; No Murmur, Rub or Gallop
GI: Soft, Non Tender, Non Distended and Normal Bowel Sounds; No Organomegaly
Genito-urinary: Scrotal edema noted
Musculoskeletal: No Clubbing, No Cyanosis, LLE GRICEL compression bandaging in place
Neuro: AOx3 conversant coherent
Psych: Calm
69M afib Coumadin [correction to prior documentation- patient has hx failed anticoagulation with Eliquis and Xarelto] CHF CVA HTN HLD Cerebral Palsy Parkinson here for LLE swelling.
#LLE edema and erythema
#Stent occlusion
-Suspect postthrombotic syndrome vs acute/chronic stent thrombosis
-U/S LLE (10/17): No LLE DVT; patent left iliac and common femoral vein stents
-CT venogram (10/18): Some thrombus seen in the left femoral venous system caudal to left-sided stent
-Repeat venogram - bilateral iliofemoral venous stents with findings suggesting the possibility of stent occlusion
Vascular intervention 10/20
Duplex assisted cannulation of left popliteal vein.
Ascending left lower extremity venogram and central venogram.
Penumbra mechanical thrombectomy of left common femoral vein and iliac vein stent with Penumbra Flash 16 catheter.
Balloon angioplasty of left iliac vein stents with 12 mm angioplasty balloon
-Hep ggt�bridged to Coumadin; goal INR 2-3, 10/29 INR close to goal 1.96 however Coumadin on hold as below, as per neurology, d/t concerns possible new onset stroke
-discussed bridging with Lovenox however patient declines, endorses living with grandchildren and concern about having needles in house,
-Compression and elevation of lower extremities to reduce swelling/stasis
10/29 New onset numbness RLE, tongue, and left side of face
-not a candidate for TPA given therapeutic AC, also low NIH score 2 (sensation loss and possible slurring of speech)
-CT head noted no acute abn's
-symptoms since improved, though RLE numbness persists, question if possible 2/2 iron deficiency
-neuro eval appreciated Brain MRI ordered, Coumadin on hold pending MRI imaging, baby ASA 81 mg given instead once
Iron Deficiency Anemia
-IV iron supplementation
#atrial fibrillation
EKG: NORMAL SINUS RHYTHM
- continue sotalol and Coumadin, bridging
#HFpEF
- daily weights
- I & Os
- continue furosemide
#Parkinson's disease
- continue carbidopa-levodopa
#Lightheaded/dizzy
-attributes it to his Parkinson
-cont to monitor closely
#CAD
- continue atorvastatin
#GERD / hiatal hernia
- continue omeprazole
#Scrotal Edema
Urology eval appreciated no acute intervention recommended, supportive care elevation on pillow and/or lambs wool
Testicular US results noted
#hypertension
#ulcerative colitis
#Hx DVT
#Hx CVA
PT/OT eval appreciated Home Health (patient however declines)
Code status: full code
DVT prophylaxis: hep gtt (Coumadin on hold as above)
discussed with patient and patient's niece primary contact Deanna
I spent a total of 43 minutes with the patient or on the floor. More than 50% of this time involved counseling and coordination of care.
Anticipated Discharge: 24 - 48 hours
Subjective/Interval History
-
Date of Service: October 29, 2024
New onset RLE, tongue, and left facial numbness. CT obtained showed no acute abn's. Symptoms since improved though RLE numbness persists.
Objective Data
-
Labs:
Laboratory Results
10/29/24
06:59
WBC Pending
Hgb Pending
Hct Pending
Plt Count Pending
PT Pending
INR Pending
APTT Pending
Vital Signs:
Vital Signs
Temp Pulse Resp BP Pulse Ox
97.9 F 62 18 121/55 96
10/29/24 03:02 10/29/24 03:02 10/29/24 03:02 10/29/24 03:02 10/29/24 03:02
I&O
10/28/24 10/29/24 10/30/24
06:59 06:59 06:59
Intake Total 480 / 480 1260 / 1260
Output Total 1625 / 1625 1969 / 1969
Balance -1145 / -1145 -710 / -710
[2024-10-29] MEDS: SINEMET 25-100 1.5 TABLET PO ×3 (07:53→21:20)
[2024-10-29] MEDS: NEURONTIN 200 MG PO ×3 (07:53→21:21)
[2024-10-29] MEDS: BETAPACE 120 MG PO ×2 (07:54→19:55)
[2024-10-29] MEDS: VITAMIN B-12 1000 MCG PO (07:55)
[2024-10-29] MEDS: DESENEX/MITRAZOL/ZEASORB 1 APPLIC TOPICAL ×2 (07:55→19:56)
[2024-10-29] MEDS: LASIX 40 MG PO (07:55)
[2024-10-29 08:02] LABS: INR 1.96; PT 22.5 Sec (11.4-14.6)
[2024-10-29 08:04] LABS: APTT 87.3 Sec (23.4-35.0)
[2024-10-29 08:29] LABS: Hematocrit 26.2 % (39.0-52.0); Hemoglobin 7.3 g/dL (13.0-18.0); Mean Corp Hgb Conc. 27.9 g/dL (33.0-37.0); Mean Corpuscular Volume 73.0 fL (80.0-94.0); Platelet Count 235 10^3/uL (130-400); Red Cell Dist. Width 21.8 % (11.5-14.5)
[2024-10-29 11:10] VITALS: BP 113/60
--- NOTE | 2024-10-29 11:18 | CON.NEURO ---
Consultation
Order
Date of Consultation: 10/29/24
Requesting Provider: Yuki Bey MD
Reason for Consult: Sensory deficits
Neurology Consultation Note.
HPI: This is a 69-year-old LH man who presented to [facility] on 10/17/2024 with leg edema. The patient underwent thrombectomy/IVUS of IVC and bilateral common/external iliac veins and stenting of bilateral common/external iliac and common
femoral veins.
The patient reports numbness on the left side of the face and the tip of the tongue with associated dysarthria noted by his sister during their phone conversation around 9:30 am
Mr. Rojas states that he has baseline right arm and leg stiffness and impaired sensation since .
Brain MRI wo marco(04/18/2021) done for new onset of lip and tongue numbness and left upper extremity numbness showed no evidence of acute infarct.
VS: 113/60, heart rate 54, afebrile
EKG(10/17/2024) NSR
PDMP: No Rx medications
Labs: INR�196, hemoglobin�7.3, normal sodium, creatinine, glucose
CT head wo contrast-moderate area of encephalomalacia in the left temporoparietal region(congenital?), moderate generalized atrophy
According to EMR the patient has been on Sinemet since at least 2020.
PMH: L MCA stroke(2014), vascular parkinsonism, PA A-Fib, DVT/PE, C4-5 and C5-6 central spinal stenosis, UC on Humira, hiatal hernia, DVT, BMI 40, Post herpetic neuralgia
PSH: IVC filter(removed), septoplasty, foot surgery
SH: Lives with sister, niece and their family. 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 Former smoker does not excessive alcohol use
FH:father-CAD, DM; mother-stroke
All: Prednisone, tetanus vaccine, pantoprazole, latex
ROS:General: Positive for swelling in legs.
HEENT: Positive for throat issues, numbness in tongue tip, slurred speech.
Musculoskeletal: Positive for numbness in right side of body, including right arm and leg. Recent numbness on left side as well.
Neurological: Positive for difficulty with balance when walking.
General: Well developed. In no acute distress.
Cardio: Regular rate and rhythm without murmur. Extremities are without cyanosis or edema.
Neuro:
Mental Status: Alert, oriented to person, place, and date. Normal attention and recall. Good fund of knowledge. Follows complex requests across the midline. Comprehension, naming, and repetition intact.
Cranial Nerves: Pupils are equally round and reactive to light. EOMs full. Visual helton full to confrontation. No ptosis. No nystagmus. V1-V3 intact to light touch and pinprick bilaterally, symmetric. Face symmetric. Normal hearing AU. The
palate elevated well. SCMs and traps 5/5. Tongue midline. Mild lingual dysarthria, mild lisp
Motor: Reduced fine finger movements on the left. Increased motor tone in the right arm and leg. No pronator drift. Strength 5/5 throughout in upper extremities, lower extremities�antigravity.
Reflexes: Limited exam due to body habitus
Sensory: Reduced vibration at the right arm knee and ankle
Coordination: No dysmetria or tremor.
Gait: deferred
Assessment and Plan:
I. Acute lacunar syndrome. Not a candidate for IV TNK due to timing of symptoms onset.
II. Chronic left MCA territory infarct, likely congenital
III. Paroxysmal A-fib
IV. Diffuse atrophy.
V. C4-5 and C5-6 central spinal stenosis
- Continue Telemetry monitoring
- Aspiration precautions
- Brain MRI without marco
- Please hold Coumadin and continue aspirin 81 mg once a day until brain MRI is completed
- Please obtain medical records from patient's neurologist
- Will contact patient's facility obtain collateral history from patient's sister.
I personally reviewed all radiology and labs along with past medical records pertinent to current medical problems. Total time spent in patient care is 55 minutes.
Thank you for allowing us to participate in the care of this patient. We will continue to follow. Please do not hesitate to contact us with any questions or concerns.
Subjective/Objective
Subjective Data
Date of Service: October 29, 2024
Objective Data
Vital Signs
Temp Pulse Resp BP Pulse Ox
36.6 C 63 12 146/74 95
10/29/24 07:20 10/29/24 07:20 10/29/24 07:20 10/29/24 07:20 10/29/24 07:20
Lab Results
10/29/24 06:59
10/26/24 08:11
PT 22.5 Sec (11.4-14.6) H 10/29/24 06:59
INR 1.96 10/29/24 06:59
APTT 87.3 Sec (23.4-35.0) H 10/29/24 06:59
Sodium 136 mmol/L (135-145) 10/26/24 08:11
Potassium 4.2 mmol/L (3.5-5.1) 10/26/24 08:11
BUN 16 mg/dl (9-20) 10/26/24 08:11
Glucose 91 mg/dl (70-99) 10/26/24 08:11
Calcium 9.2 mg/dl (8.4-10.2) 10/26/24 08:11
Lrf-A-Xhptuawxagu Pept 286 pg/ml 10/17/24 12:06
Vitamin B12 Cancelled 10/28/24 12:02
Patient Allergies
latex Allergy (Verified 10/17/24 16:19)
Itching
pantoprazole (From Protonix) Allergy (Verified 10/17/24 16:19)
Anaphylaxis-lip swelling from IV pantoprazole
peanut Allergy (Verified 10/17/24 16:19)
wheezing, swelling
pollen extracts Allergy (Verified 10/17/24 16:19)
nasal congestion
prednisone Allergy (Verified 10/17/24 16:19)
numbness/tingling
Tetanus Vaccines and Toxoid Allergy (Verified 10/17/24 16:19)
diarrhea
Medications
-
Active Medications
Generic Name Dose Route Start Last Admin
Trade Name Freq PRN Reason Stop Dose Admin
Acetaminophen 650 mg 10/17/24 21:14 10/19/24 11:59
Acetaminophen 325 Mg Tablet PO 11/14/24 21:13 650 mg
Q4HPRN PRN Administration
mild pain/BRENNAN/temp> 100.4F
Atorvastatin Calcium 80 mg 10/17/24 22:00 10/28/24 20:10
Atorvastatin (Lipitor) 80 Mg Tablet PO 11/14/24 21:59 80 mg
HS ABNER Administration
Carbidopa/Levodopa 1.5 tablet 10/17/24 22:00 10/29/24 07:53
Carbidopa (25 Mg)/Levodopa (100 Mg) Regular Release Tablet PO 11/14/24 21:59 1.5 tablet
TID ABNER Administration
Cyanocobalamin 1,000 mcg 10/18/24 08:00 10/29/24 07:55
Cyanocobalamin (Vitamin B-12) 500 Mcg Tablet PO 11/15/24 07:59 1,000 mcg
DAILY ABNER Administration
Furosemide 40 mg 10/18/24 08:00 10/29/24 07:55
Furosemide 40 Mg Tablet PO 11/15/24 07:59 40 mg
DAILY ABNER Administration
Gabapentin 200 mg 10/17/24 22:00 10/29/24 07:53
Gabapentin 100 Mg Capsule PO 11/14/24 21:59 200 mg
TID ABNER Administration
Heparin Sodium 25,000 units in 250 mls @ 0 mls/hr 10/23/24 17:00 10/29/24 00:49
Heparin 58058 Units/250 Ml IV 250 mls
PER PROTOCOL ABNER Administration
Protocol
Per Protocol
Ferric Sodium Gluconate 110 mls @ 110 mls/hr 10/29/24 14:00
Complex 125 mg/ Sodium IV 11/02/24 14:59
Chloride DAILY@1400 ABNER
Miconazole Nitrate 0 applic 10/17/24 23:00 10/29/24 07:55
Miconazole Powder Bottle TOPICAL 11/14/24 22:59 1 applic
BID ABNER Administration
Pantoprazole Sodium 40 mg 10/17/24 22:00 10/28/24 20:10
Pantoprazole 40 Mg Delayed Release Tablet PO 11/14/24 21:59 40 mg
HS ABNER Administration
Sodium Chloride 0 flush 10/19/24 22:00
Sodium Chloride 0.9% (Flush) Syringe IV 11/16/24 21:59
PER PROTOCOL ABNER
Sotalol HCl 120 mg 10/17/24 21:30 10/29/24 07:54
Sotalol 120 Mg Tablet PO 11/14/24 21:29 120 mg
Q12 ABNER Administration
Warfarin Sodium 4.5 mg 10/28/24 08:00 10/28/24 07:38
Warfarin 3 Mg Tablet PO 11/02/24 07:59 4.5 mg
FR@0800 ABNER Administration
Warfarin Sodium 3 mg 10/29/24 18:00
Warfarin 3 Mg Tablet PO 11/03/24 17:59
SuMoTuWeThSa@1800 ABNER
Home Medications
�Medication �Instructions �Recorded
gabapentin 100 mg capsule 200 mg PO TID Neurological 03/15/21
Condition
atorvastatin 80 mg tablet (Lipitor) 80 mg PO HS High cholesterol 08/15/21
carbidopa 25 mg-levodopa 100 mg 1.5 tab PO TID Neurological 08/15/21
tablet Condition
diphenhydramine HCl 25 mg capsule 25 mg PO DAILYPRN PRN allergies 08/15/21
(Benadryl)
omeprazole 40 mg capsule,delayed 40 mg PO HS Gastrointestinal issue 02/19/22
release
sotalol 120 mg tablet 120 mg PO Q12H Arrhythmia 02/19/22
warfarin 3 mg tablet 3 mg PO SUMOTUWETHSA Blood Clot 09/16/24
Prevention/Tx
warfarin 3 mg tablet 4.5 mg PO FR Blood Clot 09/16/24
Prevention/Tx
cyanocobalamin (vitamin B-12) 1,000 mcg PO DAILY #30 tabs 09/24/24
1,000 mcg tablet (Vitamin B-12)
furosemide 40 mg tablet (Lasix) 40 mg PO DAILY #30 tabs 09/25/24
Vital Signs and Labs
-
Vital Signs and Labs:
Vital Signs
Temp Pulse Resp BP Pulse Ox
36.6 C 63 12 146/74 95
10/29/24 07:20 10/29/24 07:20 10/29/24 07:20 10/29/24 07:20 10/29/24 07:20
Lab Results
10/29/24 06:59
10/26/24 08:11
PT 22.5 Sec (11.4-14.6) H 10/29/24 06:59
INR 1.96 10/29/24 06:59
APTT 87.3 Sec (23.4-35.0) H 10/29/24 06:59
Sodium 136 mmol/L (135-145) 10/26/24 08:11
Potassium 4.2 mmol/L (3.5-5.1) 10/26/24 08:11
BUN 16 mg/dl (9-20) 10/26/24 08:11
Glucose 91 mg/dl (70-99) 10/26/24 08:11
Calcium 9.2 mg/dl (8.4-10.2) 10/26/24 08:11
Lsx-D-Hxdoldmzxip Pept 286 pg/ml 10/17/24 12:06
Vitamin B12 Cancelled 10/28/24 12:02
Medications
-
Medications:
Generic Name Dose Route Start Last Admin
Trade Name Freq PRN Reason Stop Dose Admin
Acetaminophen 650 mg 10/17/24 21:14 10/19/24 11:59
Acetaminophen 325 Mg Tablet PO 11/14/24 21:13 650 mg
Q4HPRN PRN Administration
mild pain/BRENNAN/temp> 100.4F
Atorvastatin Calcium 80 mg 10/17/24 22:00 10/28/24 20:10
Atorvastatin (Lipitor) 80 Mg Tablet PO 11/14/24 21:59 80 mg
HS ABNER Administration
Carbidopa/Levodopa 1.5 tablet 10/17/24 22:00 10/29/24 07:53
Carbidopa (25 Mg)/Levodopa (100 Mg) Regular Release Tablet PO 11/14/24 21:59 1.5 tablet
TID ABNER Administration
Cyanocobalamin 1,000 mcg 10/18/24 08:00 10/29/24 07:55
Cyanocobalamin (Vitamin B-12) 500 Mcg Tablet PO 11/15/24 07:59 1,000 mcg
DAILY ABNER Administration
Furosemide 40 mg 10/18/24 08:00 10/29/24 07:55
Furosemide 40 Mg Tablet PO 11/15/24 07:59 40 mg
DAILY ABNER Administration
Gabapentin 200 mg 10/17/24 22:00 10/29/24 07:53
Gabapentin 100 Mg Capsule PO 11/14/24 21:59 200 mg
TID ABENR Administration
Heparin Sodium 25,000 units in 250 mls @ 0 mls/hr 10/23/24 17:00 10/29/24 00:49
Heparin 75586 Units/250 Ml IV 250 mls
PER PROTOCOL ABNER Administration
Protocol
Per Protocol
Ferric Sodium Gluconate 110 mls @ 110 mls/hr 10/29/24 14:00
Complex 125 mg/ Sodium IV 11/02/24 14:59
Chloride DAILY@1400 ABNER
Miconazole Nitrate 0 applic 10/17/24 23:00 10/29/24 07:55
Miconazole Powder Bottle TOPICAL 11/14/24 22:59 1 applic
BID ABNER Administration
Pantoprazole Sodium 40 mg 10/17/24 22:00 10/28/24 20:10
Pantoprazole 40 Mg Delayed Release Tablet PO 11/14/24 21:59 40 mg
HS ABNER Administration
Sodium Chloride 0 flush 10/19/24 22:00
Sodium Chloride 0.9% (Flush) Syringe IV 11/16/24 21:59
PER PROTOCOL ABNER
Sotalol HCl 120 mg 10/17/24 21:30 10/29/24 07:54
Sotalol 120 Mg Tablet PO 11/14/24 21:29 120 mg
Q12 ABNER Administration
Warfarin Sodium 4.5 mg 10/28/24 08:00 10/28/24 07:38
Warfarin 3 Mg Tablet PO 11/02/24 07:59 4.5 mg
FR@0800 ABNER Administration
Warfarin Sodium 3 mg 10/29/24 18:00
Warfarin 3 Mg Tablet PO 11/03/24 17:59
SuMoTuWeThSa@1800 ABNER
Home Medications
-
Home Medications
gabapentin 100 mg capsule 200 mg PO TID Neurological Condition 03/15/21
atorvastatin 80 mg tablet (Lipitor) 80 mg PO HS High cholesterol 08/15/21
carbidopa 25 mg-levodopa 100 mg tablet 1.5 tab PO TID Neurological Condition 08/15/21
diphenhydramine HCl 25 mg capsule (Benadryl) 25 mg PO DAILYPRN PRN allergies 08/15/21
omeprazole 40 mg capsule,delayed release 40 mg PO HS Gastrointestinal issue 02/19/22
sotalol 120 mg tablet 120 mg PO Q12H Arrhythmia 02/19/22
warfarin 3 mg tablet 3 mg PO SUMOTUWETHSA Blood Clot Prevention/Tx 09/16/24
warfarin 3 mg tablet 4.5 mg PO FR Blood Clot Prevention/Tx 09/16/24
cyanocobalamin (vitamin B-12) 1,000 mcg tablet (Vitamin B-12) 1,000 mcg PO DAILY #30 tabs 09/24/24
furosemide 40 mg tablet (Lasix) 40 mg PO DAILY #30 tabs 09/25/24
[2024-10-29] MEDS: FERRLECIT 110 MG IV (14:02)
[2024-10-29] MEDS: LOW STRENGTH ASPIRIN 81 MG PO (17:10)
[2024-10-29 20:32] VITALS: BP 127/73
[2024-10-29] MEDS: LIPITOR 80 MG PO (21:21)
[2024-10-29] MEDS: PROTONIX 40 MG PO (21:21)
[2024-10-29 23:05] VITALS: BP 130/64
[2024-10-30 03:28] VITALS: BP 120/63
[2024-10-30 06:00] VITALS: BMI 39.6
[2024-10-30 06:39] LABS: INR 1.92; PT 22.2 Sec (11.4-14.6)
[2024-10-30 06:49] LABS: APTT 166.2 Sec (23.4-35.0)
[2024-10-30 06:52] LABS: Hematocrit 28.8 % (39.0-52.0); Hemoglobin 8.2 g/dL (13.0-18.0); Mean Corp Hgb Conc. 28.5 g/dL (33.0-37.0); Mean Corpuscular Volume 74.4 fL (80.0-94.0); Platelet Count 256 10^3/uL (130-400); Red Cell Dist. Width 21.6 % (11.5-14.5)
[2024-10-30 07:00] VITALS: BP 155/74
--- NOTE | 2024-10-30 07:53 | W.PN.HOSP.TC ---
Today's Communication/Plan
-
cont hep coumadin bridge
IV Iron infusion
Assessment / Plan
Assessment / Plan
Physical Exam
General: No Apparent Distress, Appears comfortable at this time, pallor Obese
HEENT: NormoCephalic, Moist mucous membranes and Atraumatic
Respiratory: Clear and Non Labored Respirations; No Wheezes, Rales or Rhonchi
Cardiac: S1/S2 and Regular Rhythm; No Murmur, Rub or Gallop
GI: Soft, Non Tender, Non Distended and Normal Bowel Sounds; No Organomegaly
Genito-urinary: Scrotal edema noted
Musculoskeletal: No Clubbing, No Cyanosis, LLE GRICEL compression bandaging in place
Neuro: AOx3 conversant coherent
Psych: Calm
69M afib Coumadin [correction to prior documentation- patient has hx failed anticoagulation with Eliquis and Xarelto] CHF CVA HTN HLD Cerebral Palsy Parkinson here for LLE swelling.
#LLE edema and erythema
#Stent occlusion
-Suspect postthrombotic syndrome vs acute/chronic stent thrombosis
-U/S LLE (10/17): No LLE DVT; patent left iliac and common femoral vein stents
-CT venogram (10/18): Some thrombus seen in the left femoral venous system caudal to left-sided stent
-Repeat venogram - bilateral iliofemoral venous stents with findings suggesting the possibility of stent occlusion
Vascular intervention 10/20
Duplex assisted cannulation of left popliteal vein.
Ascending left lower extremity venogram and central venogram.
Penumbra mechanical thrombectomy of left common femoral vein and iliac vein stent with Penumbra Flash 16 catheter.
Balloon angioplasty of left iliac vein stents with 12 mm angioplasty balloon
-Hep ggt�bridged to Coumadin; goal INR 2-3, 10/29 INR close to goal 1.96 however Coumadin on hold as below, as per neurology, d/t concerns possible new onset stroke
-discussed bridging with Lovenox however patient declines, endorses living with grandchildren and concern about having needles in house,
-Compression and elevation of lower extremities to reduce swelling/stasis
10/29 New onset numbness RLE, tongue, and left side of face
-not a candidate for TPA given therapeutic AC, also low NIH score 2 (sensation loss and possible slurring of speech)
-CT head noted no acute abn's
-symptoms since improved, though RLE numbness persists, suspect symptoms possibly related to iron deficiency
-coumadin held an asa 81 mg given instead 10/29 as per Neuro
-10/30 Brain MRI appreciated no acute abn's, Coumadin resumed
-neuro eval appreciated Outpatient nerve conduction study/EMG of bilateral upper extremities recommended
Iron Deficiency Anemia
-IV iron supplementation
-outpt follow up with Hematology recommended (follows at [place] but also given referral for here in order to ease travel requirements and promote compliance)
#atrial fibrillation
EKG: NORMAL SINUS RHYTHM
- continue sotalol and Coumadin, bridging
#HFpEF
- daily weights
- I & Os
- continue furosemide
#Parkinson's disease
- continue carbidopa-levodopa
#Lightheaded/dizzy
-attributes it to his Parkinson
-cont to monitor closely
#CAD
- continue atorvastatin
#GERD / hiatal hernia
- continue omeprazole
#Scrotal Edema
Urology eval appreciated no acute intervention recommended, supportive care elevation on pillow and/or lambs wool
Testicular US results noted
#hypertension
#ulcerative colitis
#Hx DVT
#Hx CVA
PT/OT eval appreciated Home Health (patient however declines- outpt scripts to be provided on discharge)
Code status: full code
DVT prophylaxis: hep gtt Coumadin
discussed with patient and patient's niece primary contact Deanna
I spent a total of 42 minutes with the patient or on the floor. More than 50% of this time involved counseling and coordination of care.
Anticipated Discharge: 24 - 48 hours
Subjective/Interval History
-
Date of Service: October 30, 2024
No acute distress, sitting up comfortably in chair. Reports improvement in numbness, though still persists right thigh.
Objective Data
-
Labs:
Laboratory Results
10/30/24
06:05
WBC 5.9
Hgb 8.2 L
Hct 28.8 L
Plt Count 256
PT 22.2 H
INR 1.92
APTT 166.2 H*
Vital Signs:
Vital Signs
Temp Pulse Resp BP Pulse Ox
97.5 F 55 14 120/63 96
10/30/24 03:28 10/30/24 03:28 10/30/24 03:28 10/30/24 03:28 10/30/24 03:28
I&O
10/29/24 10/30/24 10/31/24
06:59 06:59 06:59
Intake Total 1260 / 1260 660 / 660
Output Total 1969 / 1969 1250 / 1250
Balance -710 / -710 -590 / -590
[2024-10-30] MEDS: NEURONTIN 200 MG PO ×3 (08:39→21:22)
[2024-10-30] MEDS: BETAPACE 120 MG PO ×2 (08:39→20:06)
[2024-10-30] MEDS: SINEMET 25-100 1.5 TABLET PO ×3 (08:39→21:21)
[2024-10-30] MEDS: ATIVAN 0.5 MG PO (08:40)
[2024-10-30] MEDS: DESENEX/MITRAZOL/ZEASORB 1 APPLIC TOPICAL ×2 (08:40→20:10)
[2024-10-30] MEDS: VITAMIN B-12 1000 MCG PO (08:40)
--- NOTE | 2024-10-30 09:19 | W.PN.NEURO.1 ---
Today's Communication / Plan
-
.
Subjective/Objective
Subjective Data
Date of Service: October 30, 2024
Neurology follow-up note
HPI: Mr. Rojas reports overall improvement since yesterday, with the left side 'pretty much back to normal' except for some lingering tingling in II-V digits of the left hand. The numbness on the right side has decreased compared to yesterday,
though it persists to a lesser degree. The patient's left leg is reported as 'good today,' while the right leg is 'just not as numb as it was yesterday.'
He mentions that he wouldn't have noticed any slurring if his sister hadn't pointed it out. The patient denies any neck pain.
PMH: L MCA stroke(2014), vascular parkinsonism, PA A-Fib, DVT/PE, C4-5 and C5-6 central spinal stenosis, UC on Humira, hiatal hernia, DVT, BMI 40, Post herpetic neuralgia
PSH: IVC filter(removed), septoplasty, foot surgery
SH: Lives with sister, niece and their family. 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 Former smoker does not excessive alcohol use
FH:father-CAD, DM; mother-stroke
All: Prednisone, tetanus vaccine, pantoprazole, latex
ROS:General: Positive for swelling in legs.
HEENT: Positive for throat issues, numbness in tongue tip, slurred speech.
Musculoskeletal: Positive for numbness in right side of body, including right arm and leg. Recent numbness on left side as well.
Neurological: Positive for difficulty with balance when walking.
General: Well developed. In no acute distress.
Cardio: Regular rate and rhythm without murmur. Extremities are without cyanosis or edema.
Neuro:
Mental Status: Alert, oriented to person, place, month, date was incorrect but close (20s). Difficulties with serial sevens. No aphasia or hemineglect.
Cranial Nerves: Pupils are equally round and reactive to light. EOMs full. Visual helton full to confrontation. No ptosis. No nystagmus. V1-V3 intact to light touch and pinprick bilaterally, symmetric. Face symmetric. Normal hearing AU. The
palate elevated well. SCMs and traps 5/5. Tongue midline. Mild lingual dysarthria, mild lisp
Motor: Reduced fine finger movements on the R. Increased motor tone in the right arm and leg. No pronator drift. All limbs antigravity symmetrically purposefully.
Coordination: No dysmetria or tremor.
Gait: deferred
Assessment and Plan:
I. Acute lacunar syndrome.
II. History of left MCA stroke
III. Paroxysmal A-fib
IV. Diffuse cerebral atrophy. Mild encephalopathy.
V. C4-5 and C5-6 central spinal stenosis
- Continue Telemetry monitoring
- Aspiration precautions
- Brain MRI without marco
- Continue Aspirin 81 mg QD
- Outpatient nerve conduction study/EMG of bilateral upper extremities
-Will follow
I personally reviewed all radiology and labs along with past medical records pertinent to current medical problems. Total time spent in patient care is 35 minutes.
Objective Data
Vital Signs
Temp Pulse Resp BP Pulse Ox
36.6 C 59 16 155/74 98
10/30/24 07:00 10/30/24 07:00 10/30/24 07:00 10/30/24 07:00 10/30/24 07:00
Lab Results
10/30/24 06:05
10/26/24 08:11
PT 22.2 Sec (11.4-14.6) H 10/30/24 06:05
INR 1.92 10/30/24 06:05
APTT 166.2 Sec (23.4-35.0) H* 10/30/24 06:05
Sodium 136 mmol/L (135-145) 10/26/24 08:11
Potassium 4.2 mmol/L (3.5-5.1) 10/26/24 08:11
BUN 16 mg/dl (9-20) 10/26/24 08:11
Glucose 91 mg/dl (70-99) 10/26/24 08:11
Calcium 9.2 mg/dl (8.4-10.2) 10/26/24 08:11
Pnr-O-Vabqutbucow Pept 286 pg/ml 10/17/24 12:06
Vitamin B12 Cancelled 10/28/24 12:02
Patient Allergies
latex Allergy (Verified 10/17/24 16:19)
Itching
pantoprazole (From Protonix) Allergy (Verified 10/17/24 16:19)
Anaphylaxis-lip swelling from IV pantoprazole
peanut Allergy (Verified 10/17/24 16:19)
wheezing, swelling
pollen extracts Allergy (Verified 10/17/24 16:19)
nasal congestion
prednisone Allergy (Verified 10/17/24 16:19)
numbness/tingling
Tetanus Vaccines and Toxoid Allergy (Verified 10/17/24 16:19)
diarrhea
Vital Signs and Labs
-
Vital Signs and Labs:
Vital Signs
Temp Pulse Resp BP Pulse Ox
36.6 C 59 16 155/74 98
10/30/24 07:00 10/30/24 07:00 10/30/24 07:00 10/30/24 07:00 10/30/24 07:00
Lab Results
10/30/24 06:05
10/26/24 08:11
PT 22.2 Sec (11.4-14.6) H 10/30/24 06:05
INR 1.92 10/30/24 06:05
APTT 166.2 Sec (23.4-35.0) H* 10/30/24 06:05
Sodium 136 mmol/L (135-145) 10/26/24 08:11
Potassium 4.2 mmol/L (3.5-5.1) 10/26/24 08:11
BUN 16 mg/dl (9-20) 10/26/24 08:11
Glucose 91 mg/dl (70-99) 10/26/24 08:11
Calcium 9.2 mg/dl (8.4-10.2) 10/26/24 08:11
Ohe-U-Iyfvvhhsuix Pept 286 pg/ml 10/17/24 12:06
Vitamin B12 Cancelled 10/28/24 12:02
Medications
-
Medications:
Generic Name Dose Route Start Last Admin
Trade Name Freq PRN Reason Stop Dose Admin
Acetaminophen 650 mg 10/17/24 21:14 10/19/24 11:59
Acetaminophen 325 Mg Tablet PO 11/14/24 21:13 650 mg
Q4HPRN PRN Administration
mild pain/BRENNAN/temp> 100.4F
Atorvastatin Calcium 80 mg 10/17/24 22:00 10/29/24 21:21
Atorvastatin (Lipitor) 80 Mg Tablet PO 11/14/24 21:59 80 mg
HS ABNER Administration
Carbidopa/Levodopa 1.5 tablet 10/17/24 22:00 10/30/24 08:39
Carbidopa (25 Mg)/Levodopa (100 Mg) Regular Release Tablet PO 11/14/24 21:59 1.5 tablet
TID ABNER Administration
Cyanocobalamin 1,000 mcg 10/18/24 08:00 10/30/24 08:40
Cyanocobalamin (Vitamin B-12) 500 Mcg Tablet PO 11/15/24 07:59 1,000 mcg
DAILY ABNER Administration
Furosemide 40 mg 10/18/24 08:00 10/29/24 07:55
Furosemide 40 Mg Tablet PO 11/15/24 07:59 40 mg
DAILY ABNER Administration
Gabapentin 200 mg 10/17/24 22:00 10/30/24 08:39
Gabapentin 100 Mg Capsule PO 11/14/24 21:59 200 mg
TID ABNER Administration
Heparin Sodium 25,000 units in 250 mls @ 0 mls/hr 10/23/24 17:00 10/29/24 18:02
Heparin 13859 Units/250 Ml IV 250 mls
PER PROTOCOL ABNER Administration
Protocol
Per Protocol
Ferric Sodium Gluconate 110 mls @ 110 mls/hr 10/29/24 14:00 10/29/24 14:02
Complex 125 mg/ Sodium IV 11/02/24 14:59 110 mls
Chloride DAILY@1400 ABNER Administration
Lorazepam 0.5 mg 10/29/24 17:17 10/30/24 08:40
Lorazepam 0.5 Mg Tablet PO 11/26/24 17:16 0.5 mg
ONCE PRN Administration
MRI
Miconazole Nitrate 0 applic 10/17/24 23:00 10/30/24 08:40
Miconazole Powder Bottle TOPICAL 11/14/24 22:59 1 applic
BID ABNER Administration
Pantoprazole Sodium 40 mg 10/17/24 22:00 10/29/24 21:21
Pantoprazole 40 Mg Delayed Release Tablet PO 11/14/24 21:59 40 mg
HS ABNER Administration
Sodium Chloride 0 flush 10/19/24 22:00
Sodium Chloride 0.9% (Flush) Syringe IV 11/16/24 21:59
PER PROTOCOL ABNER
Sotalol HCl 120 mg 10/17/24 21:30 10/30/24 08:39
Sotalol 120 Mg Tablet PO 11/14/24 21:29 120 mg
Q12 ABNER Administration
Warfarin Sodium 4.5 mg 10/28/24 08:00 10/28/24 07:38
Warfarin 3 Mg Tablet PO 11/02/24 07:59 4.5 mg
On Hold: 10/29/24 15:52 FR@0800 ABNER Administration
Warfarin Sodium 3 mg 10/29/24 18:00
Warfarin 3 Mg Tablet PO 11/03/24 17:59
On Hold: 10/29/24 18:00 SuMoTuWeThSa@1800 ABNER
Home Medications
-
Home Medications
gabapentin 100 mg capsule 200 mg PO TID Neurological Condition 03/15/21
atorvastatin 80 mg tablet (Lipitor) 80 mg PO HS High cholesterol 08/15/21
carbidopa 25 mg-levodopa 100 mg tablet 1.5 tab PO TID Neurological Condition 08/15/21
diphenhydramine HCl 25 mg capsule (Benadryl) 25 mg PO DAILYPRN PRN allergies 08/15/21
omeprazole 40 mg capsule,delayed release 40 mg PO HS Gastrointestinal issue 02/19/22
sotalol 120 mg tablet 120 mg PO Q12H Arrhythmia 02/19/22
warfarin 3 mg tablet 3 mg PO SUMOTUWETHSA Blood Clot Prevention/Tx 09/16/24
warfarin 3 mg tablet 4.5 mg PO FR Blood Clot Prevention/Tx 09/16/24
cyanocobalamin (vitamin B-12) 1,000 mcg tablet (Vitamin B-12) 1,000 mcg PO DAILY #30 tabs 09/24/24
furosemide 40 mg tablet (Lasix) 40 mg PO DAILY #30 tabs 09/25/24
[2024-10-30] MEDS: LASIX 40 MG PO (10:33)
[2024-10-30 11:10] VITALS: BP 108/60
[2024-10-30 15:10] VITALS: BP 114/67
[2024-10-30] MEDS: FERRLECIT 110 MG IV (15:13)
[2024-10-30] MEDS: HEPARIN 25000 UNITS/250 ML IV (15:14)
[2024-10-30 15:34] LABS: APTT 53.8 Sec (23.4-35.0)
[2024-10-30] MEDS: COUMADIN 3 MG PO (17:36)
[2024-10-30 19:00] VITALS: BP 127/70
[2024-10-30] MEDS: PROTONIX 40 MG PO (21:20)
[2024-10-30] MEDS: LIPITOR 80 MG PO (21:21)
[2024-10-30 23:00] VITALS: BP 126/68
[2024-10-30 23:13] LABS: APTT 181.1 Sec (23.4-35.0)
[2024-10-31 03:00] VITALS: BP 122/67
[2024-10-31 05:02] VITALS: BMI 39.3
[2024-10-31 06:51] LABS: INR 1.75; PT 20.6 Sec (11.4-14.6)
[2024-10-31 06:54] LABS: APTT 128.7 Sec (23.4-35.0)
[2024-10-31 06:55] LABS: Hematocrit 29.2 % (39.0-52.0); Hemoglobin 8.2 g/dL (13.0-18.0); Mean Corp Hgb Conc. 28.1 g/dL (33.0-37.0); Mean Corpuscular Volume 73.7 fL (80.0-94.0); Platelet Count 288 10^3/uL (130-400); Red Cell Dist. Width 22.4 % (11.5-14.5)
[2024-10-31 07:28] VITALS: BP 125/64
[2024-10-31] MEDS: VITAMIN B-12 1000 MCG PO (07:58)
[2024-10-31] MEDS: NEURONTIN 200 MG PO ×3 (07:59→22:33)
[2024-10-31] MEDS: SINEMET 25-100 1.5 TABLET PO ×3 (07:59→22:33)
[2024-10-31] MEDS: BETAPACE 120 MG PO ×2 (07:59→20:02)
[2024-10-31] MEDS: LASIX 40 MG PO (08:00)
[2024-10-31] MEDS: DESENEX/MITRAZOL/ZEASORB 1 APPLIC TOPICAL ×2 (08:00→20:03)
--- NOTE | 2024-10-31 08:38 | W.PN.NEURO.1 ---
Today's Communication / Plan
-
.
Subjective/Objective
Subjective Data
Date of Service: October 31, 2024
Neurology follow-up note
HPI: Mr. Rojas reports no complaints. He had uneventful night. The patient confirms that he is sensory deficits lasted over 24 hours.
Brain MRI without marco�no evidence of acute infarcts.
PMH: L MCA stroke(2015), vascular parkinsonism, PA A-Fib, DVT/PE, C4-5 and C5-6 central spinal stenosis, UC on Humira, hiatal hernia, DVT, BMI 40, Post herpetic neuralgia
PSH: IVC filter(removed), septoplasty, foot surgery
SH: Lives with sister, niece and their family. 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 Former smoker does not excessive alcohol use
FH:father-CAD, DM; mother-stroke
All: Prednisone, tetanus vaccine, pantoprazole, latex
ROS:General: Positive for swelling in legs.
HEENT: Positive for throat issues, numbness in tongue tip, slurred speech.
Musculoskeletal: Positive for numbness in right side of body, including right arm and leg. Recent numbness on left side as well.
Neurological: Positive for difficulty with balance when walking.
General: Well developed. In no acute distress.
Cardio: Regular rate and rhythm without murmur. Extremities are without cyanosis or edema.
Neuro:
Mental Status: Alert, oriented to person, place, month, date was incorrect but close (20s). Difficulties with serial sevens. No aphasia or hemineglect.
Cranial Nerves: Pupils are equally round and reactive to light. EOMs full. Visual helton full to confrontation. No ptosis. No nystagmus. V1-V3 intact to light touch and pinprick bilaterally, symmetric. Face symmetric. Normal hearing AU. The
palate elevated well. SCMs and traps 5/5. Tongue midline. Mild lingual dysarthria, mild lisp
Motor: Reduced fine finger movements on the R. Increased motor tone in the right arm and leg. No pronator drift. All limbs antigravity symmetrically purposefully.
Coordination: No dysmetria or tremor.
Gait: deferred
Assessment and Plan:
I. Recrudescence of pre-existing symptoms. Ongoing mild lingual dysarthria with no evidence of acute infarct.
II. History of left MCA stroke
III. Paroxysmal A-fib
IV. Diffuse cerebral atrophy. Mild encephalopathy.
V. C4-5 and C5-6 central spinal stenosis
- Continue Telemetry monitoring
- Aspiration precautions
- Continue Aspirin 81 mg QD
- Outpatient nerve conduction study/EMG of bilateral upper extremities
- Please recall neurology services any questions or concerns.
I personally reviewed all radiology and labs along with past medical records pertinent to current medical problems. Total time spent in patient care is 35 minutes.
Objective Data
Vital Signs
Temp Pulse Resp BP Pulse Ox
36.6 C 55 16 125/64 96
10/31/24 07:28 10/31/24 07:28 10/31/24 07:28 10/31/24 07:28 10/31/24 07:28
Lab Results
10/31/24 06:28
10/26/24 08:11
PT 20.6 Sec (11.4-14.6) H 10/31/24 06:28
INR 1.75 10/31/24 06:28
APTT 128.7 Sec (23.4-35.0) H 10/31/24 06:28
Sodium 136 mmol/L (135-145) 10/26/24 08:11
Potassium 4.2 mmol/L (3.5-5.1) 10/26/24 08:11
BUN 16 mg/dl (9-20) 10/26/24 08:11
Glucose 91 mg/dl (70-99) 10/26/24 08:11
Calcium 9.2 mg/dl (8.4-10.2) 10/26/24 08:11
Bfe-A-Sklbvozfyyl Pept 286 pg/ml 09/08/25 12:06
Vitamin B12 Cancelled 10/28/24 12:02
Patient Allergies
latex Allergy (Verified 10/17/24 16:19)
Itching
pantoprazole (From Protonix) Allergy (Verified 10/17/24 16:19)
Anaphylaxis-lip swelling from IV pantoprazole
peanut Allergy (Verified 10/17/24 16:19)
wheezing, swelling
pollen extracts Allergy (Verified 10/17/24 16:19)
nasal congestion
prednisone Allergy (Verified 10/17/24 16:19)
numbness/tingling
Tetanus Vaccines and Toxoid Allergy (Verified 10/17/24 16:19)
diarrhea
Vital Signs and Labs
-
Vital Signs and Labs:
Vital Signs
Temp Pulse Resp BP Pulse Ox
36.6 C 55 16 125/64 96
10/31/24 07:28 10/31/24 07:28 10/31/24 07:28 10/31/24 07:28 10/31/24 07:28
Lab Results
10/31/24 06:28
10/26/24 08:11
PT 20.6 Sec (11.4-14.6) H 10/31/24 06:28
INR 1.75 10/31/24 06:28
APTT 128.7 Sec (23.4-35.0) H 10/31/24 06:28
Sodium 136 mmol/L (135-145) 10/26/24 08:11
Potassium 4.2 mmol/L (3.5-5.1) 10/26/24 08:11
BUN 16 mg/dl (9-20) 10/26/24 08:11
Glucose 91 mg/dl (70-99) 10/26/24 08:11
Calcium 9.2 mg/dl (8.4-10.2) 10/26/24 08:11
Hyw-B-Blqhcurfkqw Pept 286 pg/ml 10/17/24 12:06
Vitamin B12 Cancelled 10/28/24 12:02
Medications
-
Medications:
Generic Name Dose Route Start Last Admin
Trade Name Freq PRN Reason Stop Dose Admin
Acetaminophen 650 mg 10/17/24 21:14 10/19/24 11:59
Acetaminophen 325 Mg Tablet PO 11/14/24 21:13 650 mg
Q4HPRN PRN Administration
mild pain/BRENNAN/temp> 100.4F
Atorvastatin Calcium 80 mg 10/17/24 22:00 10/30/24 21:21
Atorvastatin (Lipitor) 80 Mg Tablet PO 11/14/24 21:59 80 mg
HS ABNER Administration
Carbidopa/Levodopa 1.5 tablet 10/17/24 22:00 10/31/24 07:59
Carbidopa (25 Mg)/Levodopa (100 Mg) Regular Release Tablet PO 11/14/24 21:59 1.5 tablet
TID ABNER Administration
Cyanocobalamin 1,000 mcg 10/18/24 08:00 10/31/24 07:58
Cyanocobalamin (Vitamin B-12) 500 Mcg Tablet PO 11/15/24 07:59 1,000 mcg
DAILY ABNER Administration
Furosemide 40 mg 10/18/24 08:00 10/31/24 08:00
Furosemide 40 Mg Tablet PO 11/15/24 07:59 40 mg
DAILY ABNER Administration
Gabapentin 200 mg 10/17/24 22:00 10/31/24 07:59
Gabapentin 100 Mg Capsule PO 11/14/24 21:59 200 mg
TID ABNER Administration
Heparin Sodium 25,000 units in 250 mls @ 0 mls/hr 10/23/24 17:00 10/30/24 15:14
Heparin 75253 Units/250 Ml IV 250 mls
PER PROTOCOL ABNER Administration
Protocol
Per Protocol
Ferric Sodium Gluconate 110 mls @ 110 mls/hr 10/29/24 14:00 10/30/24 15:13
Complex 125 mg/ Sodium IV 11/02/24 14:59 110 mls
Chloride DAILY@1400 ABNER Administration
Lorazepam 0.5 mg 10/29/24 17:17 10/30/24 08:40
Lorazepam 0.5 Mg Tablet PO 11/26/24 17:16 0.5 mg
ONCE PRN Administration
MRI
Miconazole Nitrate 0 applic 10/17/24 23:00 10/31/24 08:00
Miconazole Powder Bottle TOPICAL 11/14/24 22:59 1 applic
BID ABNER Administration
Pantoprazole Sodium 40 mg 10/17/24 22:00 10/30/24 21:20
Pantoprazole 40 Mg Delayed Release Tablet PO 11/14/24 21:59 40 mg
HS ABNER Administration
Sodium Chloride 0 flush 10/19/24 22:00
Sodium Chloride 0.9% (Flush) Syringe IV 11/16/24 21:59
PER PROTOCOL ABNER
Sotalol HCl 120 mg 10/17/24 21:30 10/31/24 07:59
Sotalol 120 Mg Tablet PO 11/14/24 21:29 120 mg
Q12 ABNER Administration
Warfarin Sodium 4.5 mg 10/28/24 08:00 10/28/24 07:38
Warfarin 3 Mg Tablet PO 11/02/24 07:59 4.5 mg
FR@0800 ABNER Administration
Warfarin Sodium 3 mg 10/29/24 18:00 10/30/24 17:36
Warfarin 3 Mg Tablet PO 11/03/24 17:59 3 mg
SuMoTuWeThSa@1800 ABNER Administration
Home Medications
-
Home Medications
gabapentin 100 mg capsule 200 mg PO TID Neurological Condition 03/15/21
atorvastatin 80 mg tablet (Lipitor) 80 mg PO HS High cholesterol 08/15/21
carbidopa 25 mg-levodopa 100 mg tablet 1.5 tab PO TID Neurological Condition 08/15/21
diphenhydramine HCl 25 mg capsule (Benadryl) 25 mg PO DAILYPRN PRN allergies 08/15/21
omeprazole 40 mg capsule,delayed release 40 mg PO HS Gastrointestinal issue 02/19/22
sotalol 120 mg tablet 120 mg PO Q12H Arrhythmia 02/19/22
warfarin 3 mg tablet 3 mg PO SUMOTUWETHSA Blood Clot Prevention/Tx 09/16/24
warfarin 3 mg tablet 4.5 mg PO FR Blood Clot Prevention/Tx 09/16/24
cyanocobalamin (vitamin B-12) 1,000 mcg tablet (Vitamin B-12) 1,000 mcg PO DAILY #30 tabs 09/24/24
furosemide 40 mg tablet (Lasix) 40 mg PO DAILY #30 tabs 09/25/24
--- NOTE | 2024-10-31 10:29 | CM ---
Chart reviewed and patient is currently ambulating 130 feet supervision plan is to home no needs when stable. patient has declined visiting nurses, patient has family supports in home to assist with physician appointments after discharge.
Plan; Home no needs when stable, patient has declined visiting nurses.
[2024-10-31 11:35] VITALS: BP 122/75
[2024-10-31 13:27] LABS: APTT 55.6 Sec (23.4-35.0)
[2024-10-31] MEDS: HEPARIN 25000 UNITS/250 ML IV (13:40)
[2024-10-31] MEDS: FERRLECIT 110 MG IV (13:41)
--- NOTE | 2024-10-31 15:02 | W.PN.HOSP.TC ---
Today's Communication/Plan
-
extra dose of coumadin tonight
monitor inr; continue bridging
Assessment / Plan
Assessment / Plan
Physical Exam
General: No Apparent Distress, Appears comfortable at this time, pallor Obese
HEENT: NormoCephalic, Moist mucous membranes and Atraumatic
Respiratory: Clear and Non Labored Respirations; No Wheezes, Rales or Rhonchi
Cardiac: S1/S2 and Regular Rhythm; No Murmur, Rub or Gallop
GI: Soft, Non Tender, Non Distended and Normal Bowel Sounds; No Organomegaly
Genito-urinary: Scrotal edema noted
Musculoskeletal: No Clubbing, No Cyanosis, LLE GRICEL compression bandaging in place
Neuro: AOx3 conversant coherent
Psych: Calm
69M afib Coumadin [correction to prior documentation- patient has hx failed anticoagulation with Eliquis and Xarelto] CHF CVA HTN HLD Cerebral Palsy Parkinson here for LLE swelling.
#LLE edema and erythema
#Stent occlusion
-Suspect postthrombotic syndrome vs acute/chronic stent thrombosis
-U/S LLE (10/17): No LLE DVT; patent left iliac and common femoral vein stents
-CT venogram (10/18): Some thrombus seen in the left femoral venous system caudal to left-sided stent
-Repeat venogram - bilateral iliofemoral venous stents with findings suggesting the possibility of stent occlusion
Vascular intervention 10/20
Duplex assisted cannulation of left popliteal vein.
Ascending left lower extremity venogram and central venogram.
Penumbra mechanical thrombectomy of left common femoral vein and iliac vein stent with Penumbra Flash 16 catheter.
Balloon angioplasty of left iliac vein stents with 12 mm angioplasty balloon
-Hep ggt�bridged to Coumadin; goal INR 2-3, Resume bridging; provide increase dose of coumadin
-discussed bridging with Lovenox however patient declines, endorses living with grandchildren and concern about having needles in house,
-Compression and elevation of lower extremities to reduce swelling/stasis
10/29 New onset numbness RLE, tongue, and left side of face
-not a candidate for TPA given therapeutic AC, also low NIH score 2 (sensation loss and possible slurring of speech)
-CT head noted no acute abn's
-symptoms since improved, though RLE numbness persists, suspect symptoms possibly related to iron deficiency
-10/30 Brain MRI appreciated no acute abn's, Coumadin resumed
-neuro eval appreciated Outpatient nerve conduction study/EMG of bilateral upper extremities recommended
Iron Deficiency Anemia
-IV iron supplementation
-outpt follow up with Hematology recommended (follows at [place] but also given referral for here in order to ease travel requirements and promote compliance)
#atrial fibrillation
EKG: NORMAL SINUS RHYTHM
- continue sotalol and Coumadin, bridging
#HFpEF
- daily weights
- I & Os
- continue furosemide
#Parkinson's disease
- continue carbidopa-levodopa
#Lightheaded/dizzy
-attributes it to his Parkinson
-cont to monitor closely
#CAD
- continue atorvastatin
#GERD / hiatal hernia
- continue omeprazole
#Scrotal Edema
Urology eval appreciated no acute intervention recommended, supportive care elevation on pillow and/or lambs wool
Testicular US results noted
#hypertension
#ulcerative colitis
#Hx DVT
#Hx CVA
PT/OT eval appreciated Home Health (patient however declines- outpt scripts to be provided on discharge)
Code status: full code
DVT prophylaxis: hep gtt Coumadin
Anticipated Discharge: 24 - 48 hours
Subjective/Interval History
-
Date of Service: October 31, 2024
no acute events
Objective Data
-
Labs:
Laboratory Results
10/31/24 10/31/24
06:28 12:37
WBC 6.9
Hgb 8.2 L
Hct 29.2 L
Plt Count 288
PT 20.6 H
INR 1.75
APTT 128.7 H 55.6 H
Vital Signs:
Vital Signs
Temp Pulse Resp BP Pulse Ox
98.6 F 57 17 122/75 98
10/31/24 11:35 10/31/24 11:35 10/31/24 11:35 10/31/24 11:35 10/31/24 11:35
I&O
10/30/24 10/31/24 11/01/24
06:59 06:59 06:59
Intake Total 660 / 660 561 / 561
Output Total 1250 / 1250 2725 / 2725
Balance -590 / -590 -2164 / -2164
Review of Systems
-
History Source: Patient
All other systems: Not reviewed unless documented
Physical Exam
-
General: Well Developed
Respiratory: Clear to Auscultation
Cardiac: Regular Rhythm and S1/S2
GI: Soft and Nontender
Musculoskeletal: Edema, Right Lower Extrem and Edema, Left Lower Extrem
Neuro: AO x 3
Psych: Calm
Data Reviewed
-
CT Scan: Report Reviewed by me
Labs: Labs Reviewed by me
[2024-10-31 15:27] VITALS: BP 116/65
[2024-10-31] MEDS: COUMADIN 3 MG PO (17:07)
[2024-10-31] MEDS: COUMADIN 1 MG PO (17:07)
[2024-10-31 19:36] VITALS: BP 115/69
[2024-10-31 22:22] VITALS: BP 104/54
[2024-10-31] MEDS: LIPITOR 80 MG PO (22:33)
[2024-10-31] MEDS: PROTONIX 40 MG PO (22:33)
[2024-10-31 22:47] LABS: APTT 108.7 Sec (23.4-35.0)
[2024-11-01 03:41] VITALS: BP 125/61
[2024-11-01 05:49] LABS: INR 1.80; PT 21.1 Sec (11.4-14.6)
[2024-11-01 05:51] LABS: APTT 93.2 Sec (23.4-35.0)
[2024-11-01 06:00] VITALS: BMI 39.3
[2024-11-01 06:01] LABS: ALT (SGPT) < 10 U/L (0-50); AST (SGOT) 15 U/L (17-59); Albumin 4.1 g/dl (3.5-5.0); Alkaline Phosphatase 67 U/L (38-126); Blood Urea Nitrogen 22 mg/dl (9-20); Calcium 9.4 mg/dl (8.4-10.2); Carbon Dioxide 25 mmol/L (22-30); Chloride 105 mmol/L (98-107); Estimated Creatinine Clearance 89 ml/min; Glucose 96 mg/dl (70-99); Potassium 4.5 mmol/L (3.5-5.1); Sodium 138 mmol/L (135-145); Total Protein 8.1 g/dl (6.3-8.2); eGFR > 60.00
[2024-11-01] MEDS: HEPARIN 25000 UNITS/250 ML IV (07:40)
[2024-11-01 07:58] VITALS: BP 131/74
[2024-11-01] MEDS: DESENEX/MITRAZOL/ZEASORB 1 APPLIC TOPICAL ×2 (08:51→20:52)
[2024-11-01] MEDS: SINEMET 25-100 1.5 TABLET PO ×3 (08:52→21:00)
[2024-11-01] MEDS: NEURONTIN 200 MG PO ×3 (08:52→21:00)
[2024-11-01] MEDS: VITAMIN B-12 1000 MCG PO (08:53)
[2024-11-01] MEDS: BETAPACE 120 MG PO ×2 (08:53→20:51)
[2024-11-01] MEDS: LASIX 40 MG PO (08:54)
[2024-11-01 10:55] LABS: Hematocrit 30.7 % (39.0-52.0); Hemoglobin 8.2 g/dL (13.0-18.0); Mean Corp Hgb Conc. 26.7 g/dL (33.0-37.0); Mean Corpuscular Volume 76.2 fL (80.0-94.0); Red Cell Dist. Width 23.3 % (11.5-14.5)
[2024-11-01 11:27] VITALS: BP 116/66
[2024-11-01] MEDS: FERRLECIT 110 MG IV (13:28)
--- NOTE | 2024-11-01 13:50 | CM ---
Patient to return to home when stable, patient has declined visiting nurse services after discharge, patient has family supports in home.
Plan; Home no needs.
--- NOTE | 2024-11-01 14:43 | W.PN.HOSP.TC ---
Today's Communication/Plan
-
hep coumadin bridging
Assessment / Plan
Assessment / Plan
Physical Exam
General: No Apparent Distress, Appears comfortable at this time, pallor Obese
HEENT: NormoCephalic, Moist mucous membranes and Atraumatic
Respiratory: Clear and Non Labored Respirations; No Wheezes, Rales or Rhonchi
Cardiac: S1/S2 and Regular Rhythm; No Murmur, Rub or Gallop
GI: Soft, Non Tender, Non Distended and Normal Bowel Sounds; No Organomegaly
Genito-urinary: Scrotal edema noted
Musculoskeletal: No Clubbing, No Cyanosis, LLE GRICEL compression bandaging in place
Neuro: AOx3 conversant coherent
Psych: Calm
69M afib Coumadin [correction to prior documentation- patient has hx failed anticoagulation with Eliquis and Xarelto] CHF CVA HTN HLD Cerebral Palsy Parkinson here for LLE swelling.
#LLE edema and erythema
#Stent occlusion
-Suspect postthrombotic syndrome vs acute/chronic stent thrombosis
-U/S LLE (10/17): No LLE DVT; patent left iliac and common femoral vein stents
-CT venogram (10/18): Some thrombus seen in the left femoral venous system caudal to left-sided stent
-Repeat venogram - bilateral iliofemoral venous stents with findings suggesting the possibility of stent occlusion
Vascular intervention 10/20
Duplex assisted cannulation of left popliteal vein.
Ascending left lower extremity venogram and central venogram.
Penumbra mechanical thrombectomy of left common femoral vein and iliac vein stent with Penumbra Flash 16 catheter.
Balloon angioplasty of left iliac vein stents with 12 mm angioplasty balloon
-Hep ggt�bridged to Coumadin; goal INR 2-3, Resume bridging; provide increase dose of coumadin
-discussed bridging with Lovenox however patient declines, endorses living with grandchildren and concern about having needles in house,
-Compression and elevation of lower extremities to reduce swelling/stasis
10/29 New onset numbness RLE, tongue, and left side of face
-not a candidate for TPA given therapeutic AC, also low NIH score 2 (sensation loss and possible slurring of speech)
-CT head noted no acute abn's
-symptoms since improved, though RLE numbness persists, suspect symptoms possibly related to iron deficiency
-10/30 Brain MRI appreciated no acute abn's, Coumadin resumed
-neuro eval appreciated Outpatient nerve conduction study/EMG of bilateral upper extremities recommended
-cont asa 81mg
Iron Deficiency Anemia
-IV iron supplementation
-outpt follow up with Hematology recommended (follows at [facility] but also given referral for here in order to ease travel requirements and promote compliance)
#atrial fibrillation
EKG: NORMAL SINUS RHYTHM
- continue sotalol and Coumadin, bridging
#HFpEF
- daily weights
- I & Os
- continue furosemide
#Parkinson's disease
- continue carbidopa-levodopa
#Lightheaded/dizzy
-attributes it to his Parkinson
-cont to monitor closely
-resolved
#CAD
- continue atorvastatin
#GERD / hiatal hernia
- continue omeprazole
#Scrotal Edema
Urology eval appreciated no acute intervention recommended, supportive care elevation on pillow and/or lambs wool
Testicular US results noted
#hypertension
#ulcerative colitis
#Hx DVT
#Hx CVA
PT/OT eval appreciated Home Health (patient however declines- outpt scripts to be provided on discharge)
Code status: full code
DVT prophylaxis: hep gtt Coumadin
Anticipated Discharge: 24 - 48 hours
Subjective/Interval History
-
Date of Service: November 01, 2024
no acute events
Objective Data
-
Labs:
Laboratory Results
11/01/24
05:30
WBC 7.6
Hgb 8.2 L
Hct 30.7 L
Plt Count
PT 21.1 H
INR 1.80
APTT 93.2 H
Sodium 138
Potassium 4.5
Chloride 105
Carbon Dioxide 25
BUN 22 H
Creatinine 0.9
Glucose 96
Calcium 9.4
Total Bilirubin 1.0
AST 15 L
ALT < 10
Alkaline Phosphatase 67
Vital Signs:
Vital Signs
Temp Pulse Resp BP Pulse Ox
98.3 F 56 14 116/66 97
11/01/24 11:27 11/01/24 11:27 11/01/24 11:27 11/01/24 11:27 11/01/24 11:27
I&O
10/31/24 11/01/24 11/02/24
06:59 06:59 06:59
Intake Total 561 / 561 1230 / 1230
Output Total 2725 / 2725 1999
Balance -2164 / -2164 -770 / -770
Review of Systems
-
History Source: Patient
All other systems: Not reviewed unless documented
Physical Exam
-
General: Well Developed
Respiratory: Clear to Auscultation
Cardiac: Regular Rhythm and S1/S2
GI: Soft and Nontender
Musculoskeletal: Edema, Right Lower Extrem and Edema, Left Lower Extrem
Neuro: AO x 3
Psych: Calm
Data Reviewed
-
CT Scan: Report Reviewed by me
Labs: Labs Reviewed by me
[2024-11-01 15:15] VITALS: BP 131/71
[2024-11-01] MEDS: COUMADIN 3 MG PO (17:39)
[2024-11-01] MEDS: COUMADIN 1 MG PO (17:40)
[2024-11-01 19:53] VITALS: BP 119/63
[2024-11-01] MEDS: PROTONIX 40 MG PO (21:00)
[2024-11-01] MEDS: LIPITOR 80 MG PO (21:00)
[2024-11-01 23:36] VITALS: BP 136/65
[2024-11-02] VITALS (7 sets, daily range): BP systolic 106–144; BP diastolic 61–73; PULSE 53; O2SAT 99; BMI 39.0
[2024-11-02] MEDS: HEPARIN 25000 UNITS/250 ML IV ×2 (03:51→21:40)
[2024-11-02] MEDS: SINEMET 25-100 1.5 TABLET PO ×3 (07:56→21:45)
[2024-11-02] MEDS: DESENEX/MITRAZOL/ZEASORB 1 APPLIC TOPICAL (07:56)
[2024-11-02] MEDS: BETAPACE 120 MG PO ×2 (07:57→20:27)
[2024-11-02] MEDS: NEURONTIN 200 MG PO ×3 (07:58→21:44)
[2024-11-02] MEDS: LASIX 40 MG PO (07:59)
[2024-11-02] MEDS: VITAMIN B-12 1000 MCG PO (07:59)
[2024-11-02 08:30] LABS: Hematocrit 34.1 % (39.0-52.0); Hemoglobin 9.6 g/dL (13.0-18.0); Mean Corp Hgb Conc. 28.2 g/dL (33.0-37.0); Mean Corpuscular Volume 76.1 fL (80.0-94.0); Red Cell Dist. Width 24.0 % (11.5-14.5)
[2024-11-02 08:46] LABS: INR 1.89; PT 22.2 Sec (11.4-14.6)
[2024-11-02 08:48] LABS: APTT 109.4 Sec (23.4-35.0)
[2024-11-02 08:59] LABS: ALT (SGPT) < 10 U/L (0-50); AST (SGOT) 17 U/L (17-59); Albumin 4.4 g/dl (3.5-5.0); Alkaline Phosphatase 70 U/L (38-126); Blood Urea Nitrogen 17 mg/dl (9-20); Calcium 9.6 mg/dl (8.4-10.2); Carbon Dioxide 25 mmol/L (22-30); Chloride 105 mmol/L (98-107); Estimated Creatinine Clearance 88 ml/min; Glucose 82 mg/dl (70-99); Potassium 4.5 mmol/L (3.5-5.1); Sodium 138 mmol/L (135-145); Total Protein 8.2 g/dl (6.3-8.2); eGFR > 60.00
[2024-11-02 10:21] LABS: Platelet Count 284 10^3/uL (130-400)
[2024-11-02] MEDS: FERRLECIT 110 MG IV (13:41)
--- NOTE | 2024-11-02 13:43 | CM ---
Patient seen at bedside
on Heparin gtt
PT rec VN
patient declines VN
PLAN: Home, when stable, declines VN
--- NOTE | 2024-11-02 14:19 | W.PN.HOSP.TC ---
Today's Communication/Plan
-
hopeful INR goes to therapeutic range tomorrow
Assessment / Plan
Assessment / Plan
Physical Exam
General: No Apparent Distress, Appears comfortable at this time, pallor Obese
HEENT: NormoCephalic, Moist mucous membranes and Atraumatic
Respiratory: Clear and Non Labored Respirations; No Wheezes, Rales or Rhonchi
Cardiac: S1/S2 and Regular Rhythm; No Murmur, Rub or Gallop
GI: Soft, Non Tender, Non Distended and Normal Bowel Sounds; No Organomegaly
Genito-urinary: Scrotal edema noted
Musculoskeletal: No Clubbing, No Cyanosis, LLE RGICEL compression bandaging in place
Neuro: AOx3 conversant coherent
Psych: Calm
69M afib Coumadin [correction to prior documentation- patient has hx failed anticoagulation with Eliquis and Xarelto] CHF CVA HTN HLD Cerebral Palsy Parkinson here for LLE swelling.
#LLE edema and erythema
#Stent occlusion
-Suspect postthrombotic syndrome vs acute/chronic stent thrombosis
-U/S LLE (10/17): No LLE DVT; patent left iliac and common femoral vein stents
-CT venogram (10/18): Some thrombus seen in the left femoral venous system caudal to left-sided stent
-Repeat venogram - bilateral iliofemoral venous stents with findings suggesting the possibility of stent occlusion
Vascular intervention 10/20
Duplex assisted cannulation of left popliteal vein.
Ascending left lower extremity venogram and central venogram.
Penumbra mechanical thrombectomy of left common femoral vein and iliac vein stent with Penumbra Flash 16 catheter.
Balloon angioplasty of left iliac vein stents with 12 mm angioplasty balloon
-Hep ggt�bridged to Coumadin; goal INR 2-3, Resume bridging; provide increase dose of coumadin
-discussed bridging with Lovenox however patient declines, endorses living with grandchildren and concern about having needles in house,
-Compression and elevation of lower extremities to reduce swelling/stasis
10/29 New onset numbness RLE, tongue, and left side of face
-not a candidate for TPA given therapeutic AC, also low NIH score 2 (sensation loss and possible slurring of speech)
-CT head noted no acute abn's
-symptoms since improved, though RLE numbness persists, suspect symptoms possibly related to iron deficiency
-10/30 Brain MRI appreciated no acute abn's, Coumadin resumed
-neuro eval appreciated Outpatient nerve conduction study/EMG of bilateral upper extremities recommended
-cont asa 81mg
Iron Deficiency Anemia
-IV iron supplementation
-outpt follow up with Hematology recommended (follows at [facility] but also given referral for here in order to ease travel requirements and promote compliance)
#atrial fibrillation
EKG: NORMAL SINUS RHYTHM
- continue sotalol and Coumadin, bridging
#HFpEF
- daily weights
- I & Os
- continue furosemide
#Parkinson's disease
- continue carbidopa-levodopa
#Lightheaded/dizzy
-attributes it to his Parkinson
-cont to monitor closely
-resolved
#CAD
- continue atorvastatin
#GERD / hiatal hernia
- continue omeprazole
#Scrotal Edema
Urology eval appreciated no acute intervention recommended, supportive care elevation on pillow and/or lambs wool
Testicular US results noted
#hypertension
#ulcerative colitis
#Hx DVT
#Hx CVA
PT/OT eval appreciated Home Health (patient however declines- outpt scripts to be provided on discharge)
Code status: full code
DVT prophylaxis: hep gtt Coumadin
Anticipated Discharge: 24 - 48 hours
Subjective/Interval History
-
Date of Service: November 02, 2024
No acute events overnight
Objective Data
-
Labs:
Laboratory Results
11/02/24
07:54
WBC 7.5
Hgb 9.6 L
Hct 34.1 L
Plt Count 284
PT 22.2 H
INR 1.89
APTT 109.4 H
Sodium 138
Potassium 4.5
Chloride 105
Carbon Dioxide 25
BUN 17
Creatinine 0.9
Glucose 82
Calcium 9.6
Total Bilirubin 1.1
AST 17
ALT < 10
Alkaline Phosphatase 70
Vital Signs:
Vital Signs
Temp Pulse Resp BP Pulse Ox
97.7 F 58 18 132/68 96
11/02/24 12:06 11/02/24 12:06 11/02/24 08:01 11/02/24 12:06 11/02/24 12:06
I&O
11/01/24 11/02/24 11/03/24
06:59 06:59 06:59
Intake Total 1230 / 1230 396 / 396
Output Total 1999 / 1999 2300 / 2300
Balance -770 / -770 -1904 / -1904
Review of Systems
-
History Source: Patient
All other systems: Not reviewed unless documented
Physical Exam
-
General: Well Developed
Respiratory: Clear to Auscultation
Cardiac: Regular Rhythm and S1/S2
GI: Soft and Nontender
Musculoskeletal: Edema, Right Lower Extrem and Edema, Left Lower Extrem
Neuro: AO x 3
Psych: Calm
Data Reviewed
-
CT Scan: Report Reviewed by me
Labs: Labs Reviewed by me
[2024-11-02] MEDS: COUMADIN 3 MG PO (17:23)
[2024-11-02] MEDS: DESENEX/MITRAZOL/ZEASORB TOPICAL ×2 (20:28→20:30)
[2024-11-02] MEDS: LIPITOR 80 MG PO (21:44)
[2024-11-02] MEDS: PROTONIX 40 MG PO (21:44)
[2024-11-03] VITALS (9 sets, daily range): BP systolic 120–138; BP diastolic 69–94; PULSE 58–81; O2SAT 97; BMI 39.0
[2024-11-03] MEDS: SINEMET 25-100 1.5 TABLET PO ×3 (07:49→21:41)
[2024-11-03] MEDS: LASIX 40 MG PO (07:50)
[2024-11-03] MEDS: VITAMIN B-12 1000 MCG PO (07:50)
[2024-11-03] MEDS: DESENEX/MITRAZOL/ZEASORB 1 APPLIC TOPICAL ×2 (07:50→20:17)
[2024-11-03] MEDS: NEURONTIN 200 MG PO ×3 (07:50→21:40)
[2024-11-03] MEDS: BETAPACE 120 MG PO ×2 (07:50→20:17)
[2024-11-03 08:08] LABS: INR 2.33; PT 26.0 Sec (11.4-14.6)
[2024-11-03 08:34] LABS: Hematocrit 30.9 % (39.0-52.0); Hemoglobin 8.8 g/dL (13.0-18.0); Mean Corp Hgb Conc. 28.5 g/dL (33.0-37.0); Mean Corpuscular Volume 77.6 fL (80.0-94.0); Platelet Count 315 10^3/uL (130-400); Red Cell Dist. Width 24.8 % (11.5-14.5)
[2024-11-03 08:37] LABS: ALT (SGPT) < 10 U/L (0-50); AST (SGOT) 16 U/L (17-59); Albumin 4.0 g/dl (3.5-5.0); Alkaline Phosphatase 68 U/L (38-126); Blood Urea Nitrogen 23 mg/dl (9-20); Calcium 9.6 mg/dl (8.4-10.2); Carbon Dioxide 25 mmol/L (22-30); Chloride 107 mmol/L (98-107); Estimated Creatinine Clearance 88 ml/min; Glucose 86 mg/dl (70-99); Potassium 4.4 mmol/L (3.5-5.1); Sodium 138 mmol/L (135-145); Total Protein 7.6 g/dl (6.3-8.2); eGFR > 60.00
[2024-11-03 11:28] LABS: Glucose - Point of Care 114 mg/dl (70-99)
--- NOTE | 2024-11-03 11:45 | PTCARENOTE ---
11/03- Patient c/o slurring speech and R-sided weakness as well as some lightheadedness. He states these are intermittent repeated episodes, but no test has come back positive. NIH=2, one for R-facial droop, and 1 for Dysarthria. Full ROM with
baseline R-sided weakness observed, but no drift X4 extremities. Visual helton all equal and reactive. AAOX3. 12lead EKG is NSR with HR=63. GY=114/74. POX=95% on RA. Random Glucose= 114. Notified Physician. Patient educated on hydration,
position transitions. He verbalized understanding. Continue to monitor.
--- NOTE | 2024-11-03 12:20 | PTCARENOTE ---
11/03- Patient states persistent dizziness; substernal dull chest pain 5/10 radiating up to upper chest. AAOX3 but drowsy. Skin=pale/dry with +PulsesX4. Telemetry=Sinus Seth with HR=55. AM=242/76 sitting in bed. Notified Physician. Continue to
monitor.
[2024-11-03 13:25] LABS: Troponin I < 0.012 ng/ml
--- NOTE | 2024-11-03 13:52 | W.PN.HOSP.TC ---
Today's Communication/Plan
-
CT head neg
Troponins
Cards Consult
DC hep ggt, cont coumadin - f/u INR
Assessment / Plan
Assessment / Plan
Physical Exam
General: No Apparent Distress, Appears comfortable at this time, pallor Obese
HEENT: NormoCephalic, Moist mucous membranes and Atraumatic
Respiratory: Clear and Non Labored Respirations; No Wheezes, Rales or Rhonchi
Cardiac: S1/S2 and Regular Rhythm; No Murmur, Rub or Gallop
GI: Soft, Non Tender, Non Distended and Normal Bowel Sounds; No Organomegaly
Genito-urinary: Scrotal edema noted
Musculoskeletal: No Clubbing, No Cyanosis, LLE GRICEL compression bandaging in place
Neuro: AOx3 conversant coherent
Psych: Calm
69M afib Coumadin [correction to prior documentation- patient has hx failed anticoagulation with Eliquis and Xarelto] CHF CVA HTN HLD Cerebral Palsy Parkinson here for LLE swelling.
#LLE edema and erythema
#Stent occlusion
-Suspect postthrombotic syndrome vs acute/chronic stent thrombosis
-U/S LLE (10/17): No LLE DVT; patent left iliac and common femoral vein stents
-CT venogram (10/18): Some thrombus seen in the left femoral venous system caudal to left-sided stent
-Repeat venogram - bilateral iliofemoral venous stents with findings suggesting the possibility of stent occlusion
Vascular intervention 10/20
Duplex assisted cannulation of left popliteal vein.
Ascending left lower extremity venogram and central venogram.
Penumbra mechanical thrombectomy of left common femoral vein and iliac vein stent with PenPathra Flash 16 catheter.
Balloon angioplasty of left iliac vein stents with 12 mm angioplasty balloon
-Hep ggt�bridged to Coumadin; goal INR 2-3, Resume bridging; provide increase dose of coumadin; INR 2.3 - DC hep ggt and monitor
-discussed bridging with Lovenox however patient declines, endorses living with grandchildren and concern about having needles in house,
-Compression and elevation of lower extremities to reduce swelling/stasis
10/29 New onset numbness RLE, tongue, and left side of face
-not a candidate for TPA given therapeutic AC, also low NIH score 2 (sensation loss and possible slurring of speech)
-CT head noted no acute abn's
-symptoms since improved, though RLE numbness persists, suspect symptoms possibly related to iron deficiency
-10/30 Brain MRI appreciated no acute abn's, Coumadin resumed
-neuro eval appreciated Outpatient nerve conduction study/EMG of bilateral upper extremities recommended
-cont asa 81mg
-Repeat episode 11/03 with bradycardia ; CT head negative; Also had Chest pain.
- EKG with no acute st changes;
-Trend Trops
-Engage cards as slightly bradycardic - 55 and on Sotalol as this may have triggered issues
Iron Deficiency Anemia
-IV iron supplementation
-outpt follow up with Hematology recommended (follows at [facility] but also given referral for here in order to ease travel requirements and promote compliance)
#atrial fibrillation
EKG: NORMAL SINUS RHYTHM
- continue sotalol and Coumadin
-Hep can be dced
-cards recs for bradycardia
#HFpEF
- daily weights
- I & Os
- continue furosemide
#Parkinson's disease
- continue carbidopa-levodopa
#Lightheaded/dizzy
-attributes it to his Parkinson
-cont to monitor closely
-resolved
#CAD
- continue atorvastatin
#GERD / hiatal hernia
- continue omeprazole
#Scrotal Edema
Urology eval appreciated no acute intervention recommended, supportive care elevation on pillow and/or lambs wool
Testicular US results noted
#hypertension
#ulcerative colitis
#Hx DVT
#Hx CVA
PT/OT eval appreciated Home Health (patient however declines- outpt scripts to be provided on discharge)
Code status: full code
DVT prophylaxis: Coumadin
Total time spent on today's encounter was 51 minutes which included time spent in counseling the patient/family regarding diagnosis and treatment plan as listed above, goals of care, and symptom management. Case was discussed with nursing staff,
specialists, and care coordinators/case management. All labs and imaging personally reviewed by me. Remainder the time spent in detailed review of previous records, lab data, imaging, and other medical provider documentation.
Anticipated Discharge: 24 - 48 hours
Subjective/Interval History
-
Date of Service: November 03, 2024
INR therapeutic; Had episode of slurred speech, improved on its own - similar to past events. CT pending. HR 55.
Objective Data
-
Labs:
Laboratory Results
11/03/24
07:09
WBC 9.3
Hgb 8.8 L
Hct 30.9 L
Plt Count 315
PT 26.0 H
INR 2.33
Sodium 138
Potassium 4.4
Chloride 107
Carbon Dioxide 25
BUN 23 H
Creatinine 0.9
Glucose 86
Calcium 9.6
Total Bilirubin 0.9
AST 16 L
ALT < 10
Alkaline Phosphatase 68
Vital Signs:
Vital Signs
Temp Pulse Resp BP Pulse Ox
97.9 F 63 16 129/71 96
11/03/24 11:33 11/03/24 11:30 11/03/24 11:30 11/03/24 11:33 11/03/24 11:33
I&O
11/02/24 11/03/24 11/04/24
06:59 06:59 06:59
Intake Total 396 / 396 396 / 396
Output Total 2300 / 2300 435 / 435
Balance -1904 / -1904 -39 / -39
Review of Systems
-
History Source: Patient
All other systems: Not reviewed unless documented
Data Reviewed
-
CT Scan: Report Reviewed by me
MRI: Report Reviewed by me
Labs: Labs Reviewed by me
--- NOTE | 2024-11-03 14:21 | W.PN.NEURO.1 ---
Addendum entered and electronically signed by Rene Salgado MD 11/03/24 14:57:
Studies reviewed.
I have personally examined the patient. I reviewed and agree with the [employer] YE[employer] SUPERVISOR's Note.
My addenda:
Awake, alert, interactive. No acute distress.
Speech intact.
Follows 2-step requests w/o difficulty. No tremor.
Extra-ocular movements grossly intact.
Facial movements full and symmetric. Hearing intact to normal conversational volume.
Normal UE movements bilaterally.
Neck: full ROM.
Chest: no dyspnea
Heart: no JVD
Ext: (-) Clubbing, (-) Cyanosis, (-) Edema
IMPRESSIONS/RECOMMENDATIONS:
Abrupt onset of variable speech changes previously noted in 2019 by this interviewer, currently resolved
Unclear if this represents either vascular parkinsonism, psychosis, or a sensory loss in the face secondary to low ferritin levels. There is no evidence at this time of stroke producing this issue and prior evaluation for seizure has also been
unrevealing. Dystonia would be a possible answer for this issue although less likely.
Replace iron by using IV iron
Speech therapy as needed
Continue carbidopa/levodopa although outpatient DaTscan testing was unremarkable
Continue cyanocobalamin
D/W patient
All questions answered.
Will continue to follow as needed.
Original Note:
Today's Communication / Plan
-
.
Neuro Assessment/Plan
Assessment
This is a 69-year-old male with a PMH of large L MCA ischemic stroke (2014) and vascular parkinsonism who presented to [facility] on 10/29/24 with report of leg edema and left facial/tongue numbness and dysarthria.
Patient was previously followed as an outpatient by Dr. Russel Chris. He retired about two years ago and the patient has yet to find a new Neurologist.
From previous evaluation by Neurology Dr. Chris on 10/08/2020:
'
'
-CT Head 11/03/24: No acute intracranial abnormality. Stable chronic findings, as detailed above.
-MRI Brain 10/30/24: No acute intracranial abnormality noted. Right maxillary and sphenoid sinusitis. Stable left parietal lobe infarct with associated encephalomalacia.
-EMG 04/12/2019: Severe ulnar neuropathy at medial epicondylar groove on beatriz left side. Mild to moderate bilateral median nerve neuropathy at the wrist worsening on the left side. no evidence of lumbosacral radiculopathy or plexopathy bilaterally.
-EEG 01/11/2020: Unremarkable EEG for age.
I. Recrudescence of pre-existing symptoms. Ongoing mild lingual dysarthria with no evidence of acute infarct, has had recurrent dysarthria since stroke in 2014.
II. History of left MCA stroke
III. Low ferritin level possibly contributing to sensation changes.
V. Paroxysmal A-fib
. Diffuse cerebral atrophy. Mild encephalopathy.
VII. C4-5 and C5-6 central spinal stenosis
Plan
-Continue warfarin.
-Check orthostatic vital signs.
-Okay to continue home carbidopa/levodopa.
-Ferritin level is 19. Completed IV iron infusions. Would start ferrous sulfate 325mg nightly.
-B12 level was low at 302 in 09/2024, continue cyanocobalamin 1000mcg daily.
-Checking blood work for other possible metabolic abnormalities.
Subjective/Objective
Subjective Data
Date of Service: November 03, 2024
Patient offers no complaints. Denies any paresthesias. Reports that he feels his speech is at baseline currently but others have told him he sounds dysarthric. Denies any tremor today, reports he has a tremor possibly a couple of times per week.
Objective Data
Vital Signs
Temp Pulse Resp BP Pulse Ox
97.9 F 63 16 129/71 96
11/03/24 11:33 11/03/24 11:30 11/03/24 11:30 11/03/24 11:33 11/03/24 11:33
Lab Results
11/03/24 07:09
11/03/24 07:09
PT 26.0 Sec (11.4-14.6) H 11/03/24 07:09
INR 2.33 11/03/24 07:09
APTT 109.4 Sec (23.4-35.0) H 11/02/24 07:54
Sodium 138 mmol/L (135-145) 11/03/24 07:09
Potassium 4.4 mmol/L (3.5-5.1) 11/03/24 07:09
BUN 23 mg/dl (9-20) H 11/03/24 07:09
Glucose 86 mg/dl (70-99) 11/03/24 07:09
Calcium 9.6 mg/dl (8.4-10.2) 11/03/24 07:09
Khx-F-Prunyiqubbm Pept 286 pg/ml 10/17/24 12:06
Vitamin B12 Cancelled 10/28/24 12:02
Patient Allergies
latex Allergy (Verified 10/17/24 16:19)
Itching
pantoprazole (From Protonix) Allergy (Verified 10/17/24 16:19)
Anaphylaxis-lip swelling from IV pantoprazole
peanut Allergy (Verified 10/17/24 16:19)
wheezing, swelling
pollen extracts Allergy (Verified 10/17/24 16:19)
nasal congestion
prednisone Allergy (Verified 10/17/24 16:19)
numbness/tingling
Tetanus Vaccines and Toxoid Allergy (Verified 10/17/24 16:19)
diarrhea
LDL Level: <70, continue statin
Review of Systems
-
History Source: Patient
EENT: Negative Blurry Vision, Decreased Vision or Swallowing Difficulty
Respiratory: Negative Cough or Trouble Breathing
Cardiac: Negative Chest Pain or Palpitations
Neuro: Negative Dizzy, Headache, Weakness, Numbness, Ataxia, Tremors or Speech Problem
Physical Exam
-
General: No Apparent Distress
Eyes: No Ptosis and PERRLA
HEENT: Normocephalic and Atraumatic
Neck: Full Range of Motion
Respiratory: No Dyspnea
GI: Non-distended
Extended Neurological Exam
Mood & Affect: Mood Unremarkable and Affect Unremarkable
Attention Span & Concentration: Awake, Alert and Interactive
Memory: Unremarkable and Able to Recall
Tremor: Hand Tremor Absent and Head Tremor Absent
Speech: Quantity Unremarkable, Rate of Production Unremarkable and Dysarthric
Cranial Nerve II: Left Eye: Visual Mckay Grossly Intact
Cranial Nerve II: Right Eye: Visual Mckay Grossly Intact
Cranial Nerves III, IV, : Extraocular Movement: Extraocular Movement Full in all Directions
Cranial Nerve VII: Facial Symmetry: Normal Facial Symmetry
Cranial Nerve VIII: Hearing: Unremarkable Hearing to Normal Conversational Volume
Cranial Nerves IX, X: Palate Movement: Palate Elevation Symmetric
Cranial Nerve XI: Shoulder Shrug: Unremarkable
Cranial Nerve XII: Tongue Protusion: Midline
Muscle Strength, Overall: Full Throughout
Coordination: Mdvmbr-cjjw-unshfe Testing Unremarkable
Data Reviewed
-
CT Head: Report Reviewed and Image Reviewed
MRI Head: Report Reviewed and Image Reviewed
EEG: Report Reviewed
Orthostatic Testing: Pending
Labs: Report Reviewed
Lipid Profile: Pending
HgbA1C: Report Reviewed
Reviewed with: Physician and Patient
Medications
-
Active Medications
Generic Name Dose Route Start Last Admin
Trade Name Freq PRN Reason Stop Dose Admin
Acetaminophen 650 mg 10/17/24 21:14 10/19/24 11:59
Acetaminophen 325 Mg Tablet PO 11/14/24 21:13 650 mg
Q4HPRN PRN Administration
mild pain/BRENNAN/temp> 100.4F
Atorvastatin Calcium 80 mg 10/17/24 22:00 11/02/24 21:44
Atorvastatin (Lipitor) 80 Mg Tablet PO 11/14/24 21:59 80 mg
HS ABNER Administration
Carbidopa/Levodopa 1.5 tablet 10/17/24 22:00 11/03/24 07:49
Carbidopa (25 Mg)/Levodopa (100 Mg) Regular Release Tablet PO 11/14/24 21:59 1.5 tablet
TID ABNER Administration
Cyanocobalamin 1,000 mcg 10/18/24 08:00 11/03/24 07:50
Cyanocobalamin (Vitamin B-12) 500 Mcg Tablet PO 11/15/24 07:59 1,000 mcg
DAILY ABNER Administration
Furosemide 40 mg 10/18/24 08:00 11/03/24 07:50
Furosemide 40 Mg Tablet PO 11/15/24 07:59 40 mg
DAILY ABNER Administration
Gabapentin 200 mg 10/17/24 22:00 11/03/24 07:50
Gabapentin 100 Mg Capsule PO 11/14/24 21:59 200 mg
TID ABNER Administration
Lorazepam 0.5 mg 10/29/24 17:17 10/30/24 08:40
Lorazepam 0.5 Mg Tablet PO 11/26/24 17:16 0.5 mg
ONCE PRN Administration
MRI
Miconazole Nitrate 0 applic 10/17/24 23:00 11/03/24 07:50
Miconazole Powder Bottle TOPICAL 11/14/24 22:59 1 applic
BID ABNER Administration
Pantoprazole Sodium 40 mg 10/17/24 22:00 11/02/24 21:44
Pantoprazole 40 Mg Delayed Release Tablet PO 11/14/24 21:59 40 mg
HS ABNER Administration
Sodium Chloride 0 flush 10/19/24 22:00
Sodium Chloride 0.9% (Flush) Syringe IV 11/16/24 21:59
PER PROTOCOL ABNER
Sotalol HCl 120 mg 10/17/24 21:30 11/03/24 07:50
Sotalol 120 Mg Tablet PO 11/14/24 21:29 120 mg
Q12 ABNER Administration
Warfarin Sodium 3 mg 10/29/24 18:00 11/02/24 17:23
Warfarin 3 Mg Tablet PO 11/03/24 17:59 3 mg
SuMoTuWeThSa@1800 ABNER Administration
Warfarin Sodium 4 mg 11/04/24 18:00
Warfarin 4 Mg Tablet PO 11/09/24 17:59
FR@1800 ABNER
Warfarin Sodium 0.5 mg 11/04/24 18:00
Warfarin 0.5 Mg (1/2 Of 1 Mg Tablet) PO 11/09/24 17:59
FR@1800 ABNER
Home Medications
�Medication �Instructions �Recorded
gabapentin 100 mg capsule 200 mg PO TID Neurological 03/15/21
Condition
atorvastatin 80 mg tablet (Lipitor) 80 mg PO HS High cholesterol 08/15/21
carbidopa 25 mg-levodopa 100 mg 1.5 tab PO TID Neurological 08/15/21
tablet Condition
diphenhydramine HCl 25 mg capsule 25 mg PO DAILYPRN PRN allergies 08/15/21
(Benadryl)
omeprazole 40 mg capsule,delayed 40 mg PO HS Gastrointestinal issue 02/19/22
release
sotalol 120 mg tablet 120 mg PO Q12H Arrhythmia 02/19/22
warfarin 3 mg tablet 3 mg PO SUMOTUWETHSA Blood Clot 09/16/24
Prevention/Tx
warfarin 3 mg tablet 4.5 mg PO FR Blood Clot 09/16/24
Prevention/Tx
cyanocobalamin (vitamin B-12) 1,000 mcg PO DAILY #30 tabs 09/24/24
1,000 mcg tablet (Vitamin B-12)
furosemide 40 mg tablet (Lasix) 40 mg PO DAILY #30 tabs 09/25/24
--- NOTE | 2024-11-03 14:54 | CM ---
Patient seen at bedside
off heparin gtt
CT head today-No acute intracranial abnormality
PT rec home health
discussed with patient to obtain pcp
CM called residency clinic do not accept [facility] ins
PLAN: Home, declines home health
[2024-11-03 15:09] LABS: HDL Cholesterol 60 mg/dl; LDL Cholesterol, Calculated 29 mg/dl; Very Low Density Lipoprotein 21 mg/dl (0-30)
--- NOTE | 2024-11-03 15:14 | CON.CAR ---
Addendum entered and electronically signed by Serafin Sykes MD 11/03/24 17:26:
I saw and examined the patient.
The Vessel Captain's note was reviewed and I agree with the note.
Comment: Briefly, 69-year-old man past medical history of atrial fibrillation on sotalol who initially presented with lower extremity edema and was found to have occlusion of his left iliac vein stent which was treated with mechanical thrombectomy.
Patient remains here for bridging with heparin drip to therapeutic INR on warfarin.
No clear cardiac complaints at the time of my evaluation
He is maintaining sinus rhythm based on my review of telemetry
Would continue current sotalol dose to maintain sinus rhythm
Continue warfarin to reduce the risk of cardiac stroke from A-fib
Edema seems to be relatively controlled on current Lasix dosing, would continue 40 mg daily on discharge. We discussed compression stockings as well.
Stable cardiac status, we will sign off
He should follow-up with his primary simulation developer at [facility]
Original Note:
Consultation
Consultation Request
Date/Time Consultation Performed: 11/03/24
Requesting Provider: Dr. De La Paz
Performing Provider: Reena Steinberg PA-C for Dr. Sykes
Reason for Consultation: review cardiac meds
Medical History
-
Chief Complaint: LLE edema
History of Present Illness:
Patient is a 69 yo M with PMH of Parkinson's disease on sinemet, ulcerative colitis, cerebral palsy, history of seizures, CVAs, DVT/PEs with failure of eliquis and xarelto in past maintained on chronic coumadin, paroxysmal afib on sotalol who
presented to LLE edema. Noted to have left iliac vein stent occlusion and underwent mechanical thrombectomy with penumbra and balloon angioplasty of iliac vein stent 10/20/24. He was bridged with IV heparin to coumadin. On 10/29, patient had
neurologic symptoms and underwent head CT and brain MRI negative for acute abnormalities. heparin was discontinued today due to INR of 2.3. Neurology has recommended OP nerve conduction study vs EMG of B/L UE. Today he had episode of weakness with
exertion followed by slurred speech. There was concern for cardiac meds as etiology resulting in cardiac consultation. Patient denies CP, palpitations. Reports some SANCHES which is chronic. He is maintained on sotalol 120mg BID. OP simulation developer at
[facility].
PMH:
Chronic HFpEF
Paroxysmal atrial fibrillation
Chronic sotalol therapy
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
Removed IVC filter
Coronary artery disease
Hypertension
Hyperlipidemia
Parkinson's disease
Ulcerative colitis
Morbid obesity
Multiple strokes per patient right parietal ischemic stroke 2014
Cerebral palsy
History of seizures
Past Medical History
Past Medical History: Arrhythmias (Atrial fibrillation.), CHF (Heart failure with preserved ejection fraction.), GERD (History of esophagitis), HTN, Hypercholesterolemia and Other (Recurrent DVT/PE with DOAC failure. IVC filter removed. Ulcerative
colitis. Parkinson's. Cervical spine stenosis. Cerebral palsy.)
Past Surgical History: Orthopedic (Foot surgery)
Social History
Tobacco: Former Smoker
Alcohol: None
Living: With Family
Employment: Disabled
Allergies / Home Medications
Allergy/AdvReac Type Severity Reaction Status Date / Time
latex Allergy Itching Verified 10/17/24 16:19
pantoprazole (From Protonix) Allergy Anaphylaxis-lip Verified 10/17/24 16:19
swelling
from IV
pantoprazole
peanut Allergy wheezing, Verified 10/17/24 16:19
swelling
pollen extracts Allergy nasal Verified 10/17/24 16:19
congestion
prednisone Allergy numbness/ti Verified 10/17/24 16:19
ngling
Tetanus Vaccines and Toxoid Allergy diarrhea Verified 10/17/24 16:19
�Medication �Instructions �Recorded �Confirmed �Type
gabapentin 100 mg capsule 200 mg PO TID Neurological 03/15/21 10/17/24 History
Condition
atorvastatin 80 mg tablet (Lipitor) 80 mg PO HS High cholesterol 08/15/21 10/17/24 History
carbidopa 25 mg-levodopa 100 mg 1.5 tab PO TID Neurological 08/15/21 10/17/24 History
tablet Condition
diphenhydramine HCl 25 mg capsule 25 mg PO DAILYPRN PRN allergies 08/15/21 10/17/24 History
(Benadryl)
omeprazole 40 mg capsule,delayed 40 mg PO HS Gastrointestinal issue 02/19/22 10/17/24 History
release
sotalol 120 mg tablet 120 mg PO Q12H Arrhythmia 02/19/22 10/17/24 History
warfarin 3 mg tablet 3 mg PO SUMOTUWETHSA Blood Clot 09/16/24 10/17/24 History
Prevention/Tx
warfarin 3 mg tablet 4.5 mg PO FR Blood Clot 09/16/24 10/17/24 History
Prevention/Tx
cyanocobalamin (vitamin B-12) 1,000 mcg PO DAILY #30 tabs 09/24/24 10/17/24 Rx
1,000 mcg tablet (Vitamin B-12)
furosemide 40 mg tablet (Lasix) 40 mg PO DAILY #30 tabs 09/25/24 10/17/24 Rx
Review of Systems
-
History Source: Patient
All other systems: Negative unless noted
Physical Exam
Vital Signs
Temp Pulse Resp BP Pulse Ox
97.9 F 63 16 129/71 96
11/03/24 11:33 11/03/24 11:30 11/03/24 11:30 11/03/24 11:33 11/03/24 11:33
Lab Results
11/03/24 07:09
11/03/24 07:09
Troponin I < 0.012 ng/ml 11/03/24 12:46
Eos-D-Oulvlrfulgn Pept 286 pg/ml 10/17/24 12:06
Physical Exam
General: No Apparent Distress, Comfortable and Other (obese)
HEENT: Normocephalic, Anicteric and Moist Mucous Membranes
Respiratory: Clear and Non Labored Respirations
Cardiac: S1/S2 and Regular Rhythm
GI: Soft, Non Tender, Non Distended and Normal Bowel Sounds
Musculoskeletal: No Clubbing, No Cyanosis and Edema (trace of B/L LE)
Skin: Warm and Dry
Neuro: AO x 3
Impression / Plan
-
Primary Oncology Transplant Network Manager: Dr. Shannon [facility],
Assessment:
Presentation with LLE edema
Left iliac vein stent occlusion and underwent mechanical thrombectomy with penumbra and balloon angioplasty of iliac vein stent 10/20/24
Intermittent weakness, slurred speech with negative brain imaging
Chronic HFpEF
Paroxysmal atrial fibrillation
Chronic sotalol therapy
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
Removed IVC filter
Coronary artery disease
Hypertension
Hyperlipidemia
Parkinson's disease
Ulcerative colitis
Morbid obesity
Multiple strokes per patient right parietal ischemic stroke 2014
Cerebral palsy
History of seizures
Echocardiogram 05/23/2022: Normal left ventricular ejection fraction. 55 to 60% mild TR.
ECHO 09/19/24: EF 55-60%, trace MR, normal right heart, PASP 33 mmHg
Plan:
-Patient has had 17 day hospital course as outlined above. Earlier in admission had episode of neurologic symptoms resulting in head CT and brain MRI which were without acute findings. Today had episode of weakness, followed by slurred speech.
During that event was reported to have 'bradycardia' resulting in cardiology consultation. repeat head CT negative for acute abnormalities
-by review of tele, no evidence of pauses, AV block, or marked bradycardia which would explain symptoms.
-BPs have been stable by review in addition
-QTc by EKG 11/03 was stable.
-he does report some occasional breakthrough of afib on current dose of sotalol. hesitant to decrease without clear reason due to risk of increasing afib burden.
-continue coumadin. goal INR 2-3
-he is on lasix 40mg po daily which has been continued this admission. Cr stable
-trop negative x1
-he does appear deconditioned and would recommend home health upon DC however appears by review of case management notes, patient has refused thus far
-follow up with [place] simulation developer as planned
-d/w nursing
Data Reviewed
-
EKG: Tracing Personally Visualized and interpreted
CT Scan: Report Reviewed by me
Ultrasound: Report Reviewed by me
Medical Tests (Nuc Med, Echo etc): Report Reviewed by me
Labs: Labs Reviewed by me
Old Records: Reviewed
[2024-11-03] MEDS: LIPITOR 80 MG PO (21:40)
[2024-11-03] MEDS: PROTONIX 40 MG PO (21:41)
[2024-11-03] MEDS: COUMADIN 3 MG PO (21:42)
[2024-11-03 22:42] LABS: Troponin I < 0.012 ng/ml
[2024-11-04 03:21] VITALS: BP 140/85
[2024-11-04 04:32] LABS: INR 2.15; PT 24.5 Sec (11.4-14.6)
[2024-11-04 04:49] LABS: Hematocrit 30.3 % (39.0-52.0); Hemoglobin 8.7 g/dL (13.0-18.0); Mean Corp Hgb Conc. 28.7 g/dL (33.0-37.0); Mean Corpuscular Volume 77.5 fL (80.0-94.0); Platelet Count 303 10^3/uL (130-400); Red Cell Dist. Width 25.8 % (11.5-14.5)
[2024-11-04 04:56] LABS: ALT (SGPT) < 10 U/L (0-50); AST (SGOT) 16 U/L (17-59); Albumin 4.0 g/dl (3.5-5.0); Alkaline Phosphatase 67 U/L (38-126); Blood Urea Nitrogen 23 mg/dl (9-20); Calcium 9.3 mg/dl (8.4-10.2); Carbon Dioxide 25 mmol/L (22-30); Chloride 106 mmol/L (98-107); Estimated Creatinine Clearance 88 ml/min; Glucose 98 mg/dl (70-99); Potassium 4.2 mmol/L (3.5-5.1); Sodium 138 mmol/L (135-145); Total Protein 7.6 g/dl (6.3-8.2); eGFR > 60.00
[2024-11-04 05:07] LABS: Troponin I < 0.012 ng/ml
[2024-11-04 06:00] VITALS: BMI 38.6
[2024-11-04 07:27] VITALS: BP 140/80; BP 147/78; BP 154/86; PULSE 60; PULSE 64; PULSE 66
[2024-11-04] MEDS: SINEMET 25-100 1.5 TABLET PO ×2 (07:55→15:14)
[2024-11-04] MEDS: VITAMIN B-12 1000 MCG PO (07:55)
[2024-11-04] MEDS: NEURONTIN 200 MG PO ×2 (07:55→15:14)
[2024-11-04] MEDS: DESENEX/MITRAZOL/ZEASORB 1 APPLIC TOPICAL (07:55)
[2024-11-04] MEDS: LASIX 40 MG PO (07:56)
[2024-11-04] MEDS: BETAPACE 120 MG PO (07:56)
[2024-11-04 09:34] VITALS: BP 113/57
[2024-11-04 11:02] LABS: Troponin I < 0.012 ng/ml
--- NOTE | 2024-11-04 11:19 | CM ---
Patient seen at bedside
IMM explained & signed. in chart
declines VN
plan: home, no needs
niece to transport
[2024-11-04 11:23] VITALS: BP 127/84
--- NOTE | 2024-11-04 12:45 | W.PN.HOSP.TC ---
Addendum entered and electronically signed by Pierre De La Paz MD 11/04/24 15:47:
[id number]
Original Note:
Today's Communication/Plan
-
F/u INR closely
F/u Cards, Vascular, PCP, Hematology, Neuro outpt
Assessment / Plan
Assessment / Plan
Physical Exam
General: No Apparent Distress, Appears comfortable at this time, pallor Obese
HEENT: NormoCephalic, Moist mucous membranes and Atraumatic
Respiratory: Clear and Non Labored Respirations; No Wheezes, Rales or Rhonchi
Cardiac: S1/S2 and Regular Rhythm; No Murmur, Rub or Gallop
GI: Soft, Non Tender, Non Distended and Normal Bowel Sounds; No Organomegaly
Genito-urinary: Scrotal edema noted
Musculoskeletal: No Clubbing, No Cyanosis, LLE GRICEL compression bandaging in place
Neuro: AOx3 conversant coherent
Psych: Calm
69M afib Coumadin [correction to prior documentation- patient has hx failed anticoagulation with Eliquis and Xarelto] CHF CVA HTN HLD Cerebral Palsy Parkinson here for LLE swelling.
#LLE edema and erythema
#Stent occlusion
-Suspect postthrombotic syndrome vs acute/chronic stent thrombosis
-U/S LLE (10/17): No LLE DVT; patent left iliac and common femoral vein stents
-CT venogram (10/18): Some thrombus seen in the left femoral venous system caudal to left-sided stent
-Repeat venogram - bilateral iliofemoral venous stents with findings suggesting the possibility of stent occlusion
Vascular intervention 10/20
Duplex assisted cannulation of left popliteal vein.
Ascending left lower extremity venogram and central venogram.
Penumbra mechanical thrombectomy of left common femoral vein and iliac vein stent with Penumbra Flash 16 catheter.
Balloon angioplasty of left iliac vein stents with 12 mm angioplasty balloon
-Hep ggt�bridged to Coumadin; goal INR 2-3, Resume bridging; provide increase dose of coumadin; INR 2.3 - DC hep ggt and monitor - stable; Monitor INR outpatient closely
-discussed bridging with Lovenox however patient declines, endorses living with grandchildren and concern about having needles in house,
-Compression and elevation of lower extremities to reduce swelling/stasis
10/29 New onset numbness RLE, tongue, and left side of face
-not a candidate for TPA given therapeutic AC, also low NIH score 2 (sensation loss and possible slurring of speech)
-CT head noted no acute abn's
-symptoms since improved, though RLE numbness persists, suspect symptoms possibly related to iron deficiency
-10/30 Brain MRI appreciated no acute abn's, Coumadin resumed
-neuro eval appreciated Outpatient nerve conduction study/EMG of bilateral upper extremities recommended
-cont asa 81mg
-Repeat episode 11/03 with bradycardia ; CT head negative; Also had Chest pain.
- EKG with no acute st changes;
-Trend Trops - negative
-Engage cards as slightly bradycardic - 55 and on Sotalol as this may have triggered issues - no changes; f/u cards outpt
-Re-engaged neuro - NTD - Unclear if this represents either vascular parkinsonism, psychosis, or a sensory loss in the face secondary to low ferritin levels. There is no evidence at this time of stroke producing this issue and prior evaluation for
seizure has also been unrevealing. Dystonia would be a possible answer for this issue although less likely. - f/u Neurology outpt
Iron Deficiency Anemia
-s/p IV iron supplementation
-outpt follow up with Hematology recommended (follows at [place] but also given referral for here in order to ease travel requirements and promote compliance)
#atrial fibrillation
EKG: NORMAL SINUS RHYTHM
- continue sotalol and Coumadin
-Hep can be dced
-cards recs for bradycardia - no change
#HFpEF
- daily weights
- I & Os
- continue furosemide
#Parkinson's disease
- continue carbidopa-levodopa
#Lightheaded/dizzy
-attributes it to his Parkinson
-cont to monitor closely
-resolved
#CAD
- continue atorvastatin
#GERD / hiatal hernia
- continue omeprazole
#Scrotal Edema
Urology eval appreciated no acute intervention recommended, supportive care elevation on pillow and/or lambs wool
Testicular US results noted
#hypertension
#ulcerative colitis
#Hx DVT
#Hx CVA
PT/OT eval appreciated Home Health (patient however declines- outpt scripts to be provided on discharge)
Code status: full code
DVT prophylaxis: Coumadin
More than 30 minutes spent in discharge including
Final examination of the patient
Summarizing hospital stay
Instructions for continuing care to all relevant caregivers
Preparation of discharge records, prescriptions, and referral forms
Total time spent (in minutes): 36
Anticipated Discharge: Today
Subjective/Interval History
-
Date of Service: November 04, 2024
no acute events; INR therapeutic
Objective Data
-
Labs:
Laboratory Results
11/04/24
04:10
WBC 8.1
Hgb 8.7 L
Hct 30.3 L
Plt Count 303
PT 24.5 H
INR 2.15
Sodium 138
Potassium 4.2
Chloride 106
Carbon Dioxide 25
BUN 23 H
Creatinine 0.9
Glucose 98
Calcium 9.3
Total Bilirubin 1.1
AST 16 L
ALT < 10
Alkaline Phosphatase 67
Vital Signs:
Vital Signs
Temp Pulse Resp BP Pulse Ox
97.8 F 59 16 127/84 96
11/04/24 11:23 11/04/24 11:23 11/04/24 11:23 11/04/24 11:23 11/04/24 11:23
I&O
11/03/24 11/04/24 11/05/24
06:59 06:59 06:59
Intake Total 396 / 396 1380 / 1380
Output Total 435 / 435 4250 / 4250
Balance -39 / -39 -2870 / -2870
Review of Systems
-
History Source: Patient
All other systems: Not reviewed unless documented
Physical Exam
-
General: Well Developed
Respiratory: Clear to Auscultation
Cardiac: Regular Rhythm and S1/S2
GI: Soft and Nontender
Musculoskeletal: Edema, Right Lower Extrem and Edema, Left Lower Extrem
Neuro: AO x 3
Psych: Calm
Data Reviewed
-
CT Scan: Report Reviewed by me
MRI: Report Reviewed by me
Labs: Labs Reviewed by me
--- NOTE | 2024-11-04 12:51 | W.DS.TRANS ---
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
-
Discharge Instructions:
Discharge Diagnosis/Procedures
#LLE edema and erythema
#Stent occlusion
#numbness RLE, tongue, and left side of face
Diet Low Cholesterol,Low Fat,Restrict fluids to 48 oz
Activity As tolerated
Blood Work cbc and cmp in 1 week; INR within 2-3 days.
Others Tests Ultrasound appointment: 11/21 @ 2pm
Instructions:
Stand-Alone Forms:
Changes to Home Medications: Yes
Discharge Medications:
DC Medications w/original date entered in [facility]
gabapentin 100 mg capsule 200 mg PO TID Neurological Condition 03/15/21
atorvastatin 80 mg tablet (Lipitor) 80 mg PO HS High cholesterol 08/15/21
carbidopa 25 mg-levodopa 100 mg tablet 1.5 tab PO TID Neurological Condition 08/15/21
diphenhydramine HCl 25 mg capsule (Benadryl) 25 mg PO DAILYPRN PRN allergies 08/15/21
omeprazole 40 mg capsule,delayed release 40 mg PO HS Gastrointestinal issue 02/19/22
sotalol 120 mg tablet 120 mg PO Q12H Arrhythmia 02/19/22
warfarin 3 mg tablet 3 mg PO SUMOTUWETHSA Blood Clot Prevention/Tx 09/16/24
warfarin 3 mg tablet 4.5 mg PO FR Blood Clot Prevention/Tx 09/16/24
cyanocobalamin (vitamin B-12) 1,000 mcg tablet (Vitamin B-12) 1,000 mcg PO DAILY #30 tabs 09/24/24
furosemide 40 mg tablet (Lasix) 40 mg PO DAILY #30 tabs 09/25/24
miconazole nitrate 2 % topical powder (Miconazorb AF) 1 applic topical BID 30 days #85 grams 11/04/24
Home Medication Changes
miconazole nitrate 2 % topical powder (Miconazorb AF) 1 applic topical BID 30 days #85 grams 11/04/24
Pending Results: No
[2024-11-04 15:18] VITALS: BP 150/78
== END 2024-11-04 17:20 | disposition home or self-care (01) | DRG 271 ==
LOC: 4 WEST ACU 08:37
PROVIDERS: Internal Medicine; Nurse Practitioner; Nurse Practitioner Family; Nurse Practitioner Gerontology; Physician Assistant; Student in an Organized Health Care Education/Training Program; Surgery Vascular Surgery; ADMITTING PHYSICIAN Hospitalist; ATTENDING PHYSICIAN Internal Medicine; CONSULT PHYSICIAN Internal Medicine Cardiovascular Disease; CONSULT PHYSICIAN Psychiatry & Neurology Neurology; CONSULT PHYSICIAN Specialist; CONSULT PHYSICIAN Surgery Vascular Surgery; EMERGENCY PHYSICIAN Emergency Medicine
PROC: B51C1ZZ Fluoroscopy of Left Lower Extremity Veins using Low Osmolar Contrast (ICD-10-PCS; 2024-10-20)
PROC: 06CN3ZZ Extirpation of Matter from Left Femoral Vein, Percutaneous Approach (ICD-10-PCS; 2024-10-20)
PROC: 067D3ZZ Dilation of Left Common Iliac Vein, Percutaneous Approach (ICD-10-PCS; 2024-10-20)
PROC: 30233N1 Transfusion of Nonautologous Red Blood Cells into Peripheral Vein, Percutaneous Approach (ICD-10-PCS; 2024-10-20)
PROC: 06CD3ZZ Extirpation of Matter from Left Common Iliac Vein, Percutaneous Approach (ICD-10-PCS; 2024-10-20)
DX: T82.868A Thrombosis due to vascular prosthetic devices, implants and grafts, initial encounter (principal); G93.40 Encephalopathy, unspecified; I50.32 Chronic diastolic (congestive) heart failure; I82.412 Acute embolism and thrombosis of left femoral vein; I82.422 Acute embolism and thrombosis of left iliac vein; I82.522 Chronic embolism and thrombosis of left iliac vein; I82.512 Chronic embolism and thrombosis of left femoral vein; Z68.41 Body mass index [BMI] 40.0-44.9, adult; I87.002 Postthrombotic syndrome without complications of left lower extremity; E78.00 Pure hypercholesterolemia, unspecified; G80.9 Cerebral palsy, unspecified; G20.A1 Parkinson's disease without dyskinesia, without mention of fluctuations; R47.1 Dysarthria and anarthria; G46.7 Other lacunar syndromes; R00.1 Bradycardia, unspecified; R20.0 Anesthesia of skin; E66.01 Morbid (severe) obesity due to excess calories; D50.9 Iron deficiency anemia, unspecified; I11.0 Hypertensive heart disease with heart failure; Y71.2 Prosthetic and other implants, materials and accessory cardiovascular devices associated with adverse incidents; I25.10 Atherosclerotic heart disease of native coronary artery without angina pectoris; R56.9 Unspecified convulsions; M48.02 Spinal stenosis, cervical region; K21.9 Gastro-esophageal reflux disease without esophagitis; N50.89 Other specified disorders of the male genital organs; I48.0 Paroxysmal atrial fibrillation; Z87.891 Personal history of nicotine dependence; Z79.01 Long term (current) use of anticoagulants; Z82.3 Family history of stroke; Z86.73 Personal history of transient ischemic attack (TIA), and cerebral infarction without residual deficits
CPT/HCPCS: 36005; 37187; 37248; 70450; 70551; 71046; 73020; 74174; 74177; 75820; 76870; 80048; 80053; 80061; 82728; 82746; 82962; 83540; 83550; 83880; 84443; 84484; 85025; 85027; 85610; 85730; 86850; 86900; 86901; 86920; 93005; 93971; 93976; 97116; 97163; 97167; 97530; 97535; 99285; C1725; C1757; C1769; C1892; C1894; J2916; P9016; Q9967

== ENCOUNTER → 2025-01-06 08:52 | Outpatient (REF) | payer OTHER, SELFPAY | LOC: RAD 08:52 | PROVIDERS: ATTENDING PHYSICIAN Surgery Vascular Surgery | DX: I82.422 Acute embolism and thrombosis of left iliac vein (principal) | CPT/HCPCS: 93971; 93978 ==